=== PATIENT | female | born 1935 | race Caucasian/White ===

== ENCOUNTER 2017-02-15 11:38 | Inpatient (IN) | payer OTHER, MEDICARE ==
[2017-02-15] MEDS ORDERED: morphine CARPU-JECT 4 MG/1 ML DISP.SYRIN IVPUSH ONE ×4 (11:54→15:50)
--- NOTE | 2017-02-15 11:54 | PDOC ---
History of Present Illness - General History Source: Patient Exam Limitations: No Limitations - History of Present Illness Initial Comments: 02/15/17 12:17 The patient is an 82 year old female, with significant past medical history of a left shoulder surgery, hypertension, and hyperlipidemia, who presents today complaining of right shoulder pain and right collarbone pain s/p fall this morning. 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 She notes that there is mild pain in the left shoulder, which she had surgery on previously. Denies head trauma. Denies LOC. Denies right upper extremity numbness and tingling. Denies head, neck, back pain or trauma. Allergies: Sulfa Surgical Hx: left shoulder surgery, Right patella surgery PCP- Dr. Marcelle Mullen <Celina Ford - Last Filed: 02/15/17 18:30> - General History Source: Patient Exam Limitations: No Limitations <Ioana Zuluaga - Last Filed: 02/17/17 07:56> - General Chief Complaint: Pain, Acute Stated Complaint: SHOULDER PAIN Time Seen by Provider: 02/15/17 11:53 Past History <Celina Ford - Last Filed: 02/15/17 18:30> - Past Medical History Anemia: No Asthma: No Cancer: No HTN: Yes Hypercholesterolemia: Yes - Surgical History Abdominal Surgery: Yes (Hernia repair) Appendectomy: No Cardiac Surgery: No Orthopedic Surgery: Yes (Sheela Garcia) - Immunization History Immunization Up to Date: Yes - Psycho/Social/Smoking Cessation Hx Anxiety: No Suicidal Ideation: No Smoking Status: No Smoking History: Never smoked Have you smoked in the past 12 months: No Number of Cigarettes Smoked Daily: 0 Hx Alcohol Use: No Drug/Substance Use Hx: No Substance Use Type: None Hx Substance Use Treatment: No <Ioana Zuluaga - Last Filed: 02/17/17 07:56> - Past Medical History Allergies/Adverse Reactions: Allergies Allergy/AdvReac Type Severity Reaction Status Date / Time Sulfa (Sulfonamide Allergy Verified 10/17/15 05:53 Antibiotics) [Sulfa(Sulfonamide Antibiotics)] Home Medications: Ambulatory Orders Amlodipine Besylate [Norvasc -] 10 mg PO DAILY 04/18/14 Metoprolol Succinate [Toprol XL -] 25 mg PO BID 04/18/14 Losartan Potassium 100 mg PO DAILY 02/15/17 Red Yeast Rice 600 mg PO DAILY 02/15/17 Review of Systems - Review of Systems Able to Perform ROS?: Yes Comments:: 02/15/17 12:17 GENERAL/CONSTITUTIONAL: No: fever, chills, weakness, loss of appetite. HEAD, EYES, EARS, NOSE AND THROAT: No: change in vision, ear pain, discharge, sore throat, throat swelling. CARDIOVASCULAR: No: chest pain, lightheadedness, palpitations, syncope RESPIRATORY: No: cough, shortness of breath, wheezing, hemoptysis, stridor. GASTROINTESTINAL: No: nausea, vomiting, abdominal cramping, diarrhea, rectal bleeding, constipation. GENITOURINARY: No: dysuria, hematuria, frequency, urgency, flank pain. MUSCULOSKELETAL:+right shoulder pain, +right collarbone pain, +mild left shoulder pain. No: back pain, neck pain, joint pain, muscle swelling or pain SKIN: No: lesions, pallor, rash or easy bruising. NEUROLOGIC: No: headache, vertigo, paresthesias, weakness ENDOCRINE: No: unexplained weight gain or loss HEMATOLOGIC/LYMPHATIC: No: anemia, easy bleeding, swelling nodes <Celina Ford - Last Filed: 02/15/17 18:30> *Physical Exam - Vital Signs Last Vital Signs Temp Pulse Resp BP Pulse Ox 97.5 F L 57 L 18 154/67 100 02/15/17 11:42 02/15/17 11:42 02/15/17 11:42 02/15/17 11:42 02/15/17 11:42 - Physical Exam Comments: 02/15/17 12:17 GENERAL: The patient appears uncomfortable HEAD: Normal with no signs of trauma. EYES: PERRLA, EOMI, sclera anicteric, conjunctiva clear. ENT: Ears normal, nares patent, oropharynx clear without exudates. Moist mucous membranes. NECK: Normal range of motion, supple without lymphadenopathy, JVD, or masses. LUNGS: Breath sounds equal, clear to auscultation bilaterally. No wheezes, and no crackles. HEART:Regular rate and rhythm, normal S1 and S2 without murmur, rub or gallop. ABDOMEN: Soft, nontender, normoactive bowel sounds. No guarding, no rebound. EXTREMITIES: +Severe right shoulder pain. Right shoulder deformity. Sensation intact. Good pulse. Pulse is normal in the right hand. Right hand is warm. NEUROLOGICAL: Cranial nerves II through XII grossly intact. Normal speech. No focal neurological deficits. MUSCULOSKELETAL: Back nontender to palpation, no CVA tenderness SKIN: Warm, Dry, normal turgor, no rashes or lesions noted. <Celina Ford - Last Filed: 02/15/17 18:30> - Vital Signs Last Vital Signs Temp Pulse Resp BP Pulse Ox 97.5 F L 57 L 18 154/67 100 02/15/17 11:42 02/15/17 11:42 02/15/17 11:42 02/15/17 11:42 02/15/17 11:42 <Ioana Zuluaga - Last Filed: 02/17/17 07:56> Heart Score/ECG Review #1 ECG reviewed & interpreted by me at: 12:18 02/15/17 12:18 Twelve-lead EKG was performed and reviewed by me. There is normal sinus rhythm with a slightly bradycardiac rate of 57bpm. The axis is normal. LBBB. (old finding) <Ioana Zuluaga - Last Filed: 02/17/17 07:56> ED Treatment Course - LABORATORY CBC & Chemistry Diagram: 02/15/17 11:55 02/15/17 11:55 - RADIOLOGY Radiograph Interpretation: 02/15/17 12:46 EXAM#: TYPE/EXAM: RESULT: [id number] RAD/SHOULDER-RIGHT Status post fall. Single AP view of the right shoulder, right humerus. Anterior glenohumeral joint dislocation is seen. The humeral head is below the glenoid projecting over the lateral aspect of the scapula. Comminuted fracture is seen in the proximal humerus, with avulsed bony fragment. Avulsion fracture of the greater tuberosity is suggested. The right AC joint is not widened. No airspace opacities are seen in the visualized right lung. Reported By: Rick Tirado MD 02/15/17 6992 EXAM#: TYPE/EXAM: RESULT: [id number] RAD/SHOULDER-LEFT Status post fall. Left shoulder 2 views. Comminuted fracture is seen in the proximal left humerus. The humeral head maintains normal relationship to the glenoid. The left AC joint is not widened. Degenerative changes are seen in the region of the greater tuberosity. No airspace opacities are seen in the left lung. Prominent cardiac silhouette. Uncoiled thoracic aorta. No pneumothorax seen. Impression. Comminuted fracture proximal left humerus. Reported By: Rick Tirado MD 02/15/17 1231 EXAM#: TYPE/EXAM: RESULT: [id number] RAD/CHEST - PA Status post fall. Single semierect portable chest x-ray. No evidence of pneumonia or CHF atelectasis, or pneumothorax. No evidence of widening of the superior mediastinum. Mildly uncoiled thoracic aorta. The heart is not enlarged. Intact visualized ribs. Comminuted fracture - proximal right/left humerus. Right anterior glenohumeral joint dislocation. Impression. No evidence of active pulmonary disease. No pneumothorax or pleural effusion is seen. Intact visualized ribs. Reported By: Rick Tirado MD 02/15/17 1237 02/15/17 14:56 EXAM#: TYPE/EXAM: RESULT: [id number] CT/HEAD CT WITHOUT CONTRAST CT scan of the brain c-. Fall onto shoulder Findings. Serial axial images of the brain were obtained from foramen magnum to the cranial vertex without intravenous contrast. The study was supplemented with computer-generated coronal and sagittal reconstruction images. No evidence of acute subarachnoid hemorrhage, acute intra-axial or extra-axial fluid collection consistent with subdural or epidural hematoma. No mass effect, midline shift, acute territorial ischemic changes, herniation or edema is present. Normal [place] matter white matter differentiation. Cortical sulci sylvian fissures, perimesencephalic cisterns are not effaced. Intracranial vascular calcifications are noted. Right paranasal sinus disease Age-related involutional changes are observed. Examination of the bone windows show no fracture. Partially opacified right maxillary sinus: thickened mucosa, or retention cyst. Symmetrical ocular globes. Unremarkable retro-orbital soft tissues. Status post bilateral cataract surgeries. Impression. No evidence of acute intracranial hemorrhage, edema, midline shift, mass effect , or skull fracture. No CT evidence of acute territorial infarction. Reported By: Rick Tirado MD 02/15/17 1321 EXAM#: TYPE/EXAM: RESULT: [id number] CT/CERVICAL SPINE CT W/O CONTR Reason for the study. Trauma. CT scan of the cervical spine C-. Direct axial images were obtained from the base of the skull through T3. The study was supplemented with computer-generated sagittal, coronal reconstruction images. Findings. Normal cervical lordosis seen on the sagittal reconstruction images. Levoscoliosis of the cervical spine observed on coronal reconstruction images No acute fracture, compression deformity, of subluxation is seen. Normal relationship of odontoid to anterior arch of C1. The predental space is not widened. Intact odontoid. Normal articulation of atlantoaxial and occipito atlantal joints. Normal spinolaminar line. Normal alignment of the facet joints. C4-C5, C5-C6, C6-C7. Loss of disc space height. Degenerative endplate sclerosis. Posterior degenerative osteophytes. Facet joint arthropathy noted at several levels. No evidence of central spinal canal stenosis. The visualized portion of the posterior fossa, skull base, and uppermost of the thoracic spine show no abnormality. Normal height of vertebral bodies. The intraspinal contents cannot be adequately evaluated due to the beam hardening artifacts. The airways are patent. No evidence of prevertebral soft tissue swelling. No bulky neck adenopathy is seen. No dominant neck mass is seen. The lung apices are clear. Impression. No evidence of acute fracture, compression deformities, subluxation, prevertebral soft tissue swelling. Reported By: Rick Tirado MD 02/15/17 1322 - Medications Given in the ED: ED Medications Discontinued Medications Generic Name Dose Route Start Last Admin Trade Name Austinq PRN Reason Stop Dose Admin Morphine Sulfate 2 mg 02/15/17 11:54 02/15/17 12:03 Morphine Injection - IVPUSH 02/15/17 11:55 2 mg ONCE ONE Administration Morphine Sulfate 4 mg 02/15/17 12:01 02/15/17 12:04 Morphine Injection - IVPUSH 02/15/17 12:02 4 mg ONCE ONE Administration <Celina Ford - Last Filed: 02/15/17 18:30> - LABORATORY CBC & Chemistry Diagram: 02/15/17 11:55 02/15/17 11:55 - RADIOLOGY Radiology Studies Ordered: Category Date Time Status CHEST PA & LAT [RAD] Stat Radiology 02/15/17 11:44 Ordered HUMERUS-RIGHT [RAD] Stat Radiology 02/15/17 11:44 Ordered SHOULDER-RIGHT [RAD] Stat Radiology 02/15/17 11:44 Ordered <Ioana Zuluaga - Last Filed: 02/17/17 07:56> Medical Decision Making - Medical Decision Making 02/15/17 18:27 Dr. Morgan was paged at 12:44pm. Dr. Morgan was paged at 1:00pm. Dr. Morgan was paged at 2:35pm Dr. Morgan came into the ED at 4:00pm and attended to the patient. 02/15/17 18:30 Dr. Mullen was paged via paging service at 1:37pm. Dr. Mullen was called on her cell phone at 2:12pm and spoke to Dr. Zuluaga regarding the patient's care. <Celina Ford - Last Filed: 02/15/17 18:30> - Medical Decision Making 02/15/17 11:53 A portion of this note was documented by scribe services under my direction. I have reviewed the details of the note, within reason, and agree with the documentation with the following case summary and management plan written by me. Nursing documentation reviewed and incorporated into medical decision making 82yo Relatively healthy F presenting to the ER with a complaint of bilateral shoulder pain, R>L Pt was at home, tripped over the super's legs and landed onto her shoulder No LOC No amnesia No signs of head trauma 02/15/17 12:03 Pt in severe pain Given Morphine 2mg IV Pt continue to cry in pain We are unable to move her in any way She needs x rays Will give Morphine 2mg IV additional 02/15/17 12:10 Right shoulder dislocation, AC separation, humeral fracture 02/15/17 13:04 Laboratory Tests 02/15/17 02/15/17 02/15/17 11:55 11:55 11:55 WBC 10.4 H D Hgb 11.9 Hct 35.8 Plt Count 287 D INR 0.96 BUN 19 H Creatinine 0.7 Right shoulder dislocated Left shoulder comminuted fracture Calls placed to pt Orthopedist Pending response 02/15/17 13:05 02/15/17 13:[address]: negative for ICH Cervical spine CT: degenerative changes 02/15/17 14:[address] Mullen. Will admit to her service. Will continue to try to reach Orthopedic consult Right shoulder reduced by Orthopedics <Ioana Zuluaga - Last Filed: 02/17/17 07:56> *DC/Admit/Observation/Transfer - Attestations Scribe Attestion: 02/15/17 12:18 Documentation prepared by CELESTINE Damon, acting as medical equipment sales for Ioana Zuluaga MD. <Celina Ford - Last Filed: 02/15/17 18:30> - Discharge Dispostion Admit: Yes <Ioana Zuluaga - Last Filed: 02/17/17 07:56> Diagnosis at time of Disposition: Anterior shoulder dislocation Qualifiers: Encounter type: initial encounter Laterality: right Qualified Code(s): S43.014A - Anterior dislocation of right humerus, initial encounter Humeral head fracture Qualifiers: Encounter type: initial encounter Fracture type: closed Laterality: unspecified laterality Qualified Code(s): S42.293A - Other displaced fracture of upper end of unspecified humerus, initial encounter for closed fracture - Discharge Dispostion Condition at time of disposition: Stable
[2017-02-15] MEDS ORDERED: morphine CARPU-JECT 2 MG/1 ML DISP.SYRIN ONE ×5 (11:56→15:49)
[2017-02-15 12:01] LABS: EOSINOPHIL 2.3 % (0-4.5); MCH 30.5 pg (25.7-33.7); MCHC 33.2 g/dl (32.0-36.0); MEAN CELL VOLUME 91.9 fl (80-96); MEAN PLT VOLUME 8.2 fl (7.5-11.1); NEUTROPHILS 46.5 % (42.8-82.8); PLATELET COUNT 287 K/MM3 (134-434); RDW 13.2 % (11.6-15.6); WHITE BLOOD COUNT 10.4 K/mm3 (4.0-10.0)
[2017-02-15] MEDS ORDERED: ONDANSETRON 4 MG/2 ML VIAL ONE (12:08)
[2017-02-15 12:21] LABS: INR 0.96 (0.82-1.09); PROTHROMBIN TIME (PATIENT) 10.5 SEC (9.98-11.88)
[2017-02-15 12:25] LABS: ALBUMIN 3.2 g/dl (3.4-5.0); ALK PHOS 81 U/L (45-117); ANION GAP 8 (8-16); BILIRUBIN,TOTAL 0.2 mg/dL (0.2-1.0); CALCIUM 9.1 mg/dL (8.5-10.1); CO2 28 mmol/L (21-32); COCKROFT - GAULT 49.5635; CREATININE 0.7 mg/dL (0.55-1.02); GLUCOSE,RANDOM 124 mg/dL (74-106); SGPT/ALT 28 U/L (12-78); TOT PROT 6.2 g/dl (6.4-8.2)
[2017-02-15 12:40] LABS: SGOT/AST 18 U/L (15-37)
[2017-02-15] MEDS ORDERED: ONDANSETRON 4 MG/2 ML VIAL IVPUSH ONE (16:30)
[2017-02-15] MEDS ORDERED: LIDOCAINE HCL 2% (20ML MULTI-DOSE VIAL) NR ONE (16:41)
[2017-02-15] MEDS ORDERED: PROPOFOL 20 ML ONE ×2 (16:50)
[2017-02-15] MEDS ORDERED: SUCCINYLCHOLINE CHLORIDE 200 MG/10 ML VIAL ONE (16:50)
--- NOTE | 2017-02-15 16:52 | PN ---
Progress Note (short form) - Note Progress Note: Pt seen and examined in the ED. She is an 82 year old female patient who fell 5 hours ago, injuring both shoulders. X-rays in the ED confirm she has a comminuted fracture of the left proximal humerus, and a comminuted fracture of the right proximal humerus as well as an anterior right shoulder dislocation. PE Both UE are NVI. No sensation No functional deficits. Right GH joint clearly dislocated Imp As above. Rec 10cc 2% Lidocaine injected into right GH joint. Closed reduction performed at bedside. Post reduction xrays confirm reduction. Sling for both arms, perhaps with 6" bob bandage wrapped around both arms. No surgery planned at this time
[2017-02-15] MEDS ORDERED: OXYCODONE/APAP 5/325MG COMBO TABLET PO PRN (19:10)
[2017-02-15] MEDS ORDERED: oxyCODONE HCL 5 MG TABLET PO PRN (19:11)
--- NOTE | 2017-02-15 19:15 | HP ---
Admitting History and Physical - Admission Chief Complaint: fall at home and trauma to both shoulders History of Present Illness: 10 upper sorbian female s/p accidental mechanical fall at home (tripping over the foot of a person), injured her bothe upper extremities with pain and inability to move arms Limitations to Obtaining History: No Limitations - Past Medical History Cardiovascular: Yes: CAD, HTN - Smoking History Smoking history: Never smoked Have you smoked in the past 12 months: No Aproximately how many cigarettes per day: 0 - Alcohol/Substance Use Hx Alcohol Use: No Home Medications - Allergies Allergies/Adverse Reactions: Allergies Allergy/AdvReac Type Severity Reaction Status Date / Time Sulfa (Sulfonamide Allergy Verified 10/17/15 05:53 Antibiotics) [Sulfa(Sulfonamide Antibiotics)] - Home Medications Home Medications: Ambulatory Orders Amlodipine Besylate [Norvasc -] 10 mg PO DAILY 04/18/14 Metoprolol Succinate [Toprol XL -] 25 mg PO BID 04/18/14 Losartan Potassium 100 mg PO DAILY 02/15/17 Red Yeast Rice 600 mg PO DAILY 02/15/17 Review of Systems - Review of Systems Constitutional: reports: No Symptoms Eyes: reports: Other (had recent right eye cataract surgery) Neck: reports: No Symptoms Cardiovascular: reports: No Symptoms Respiratory: reports: No Symptoms Gastrointestinal: reports: No Symptoms Genitourinary: reports: No Symptoms Breasts: reports: No Symptoms Reported Musculoskeletal: reports: Other (pin in the right shoulder, edeam of the left upper humerus) Physical Examination Vital Signs: Vital Signs Temperature 97.5 F L 02/15/17 11:42 Pulse Rate 61 02/15/17 17:02 Respiratory Rate 18 02/15/17 17:02 Blood Pressure 147/61 02/15/17 17:02 O2 Sat by Pulse Oximetry (%) 98 02/15/17 13:40 Constitutional: Yes: Well Nourished, Calm Eyes: Yes: Conjunctiva Clear, EOM Intact HENT: Yes: Atraumatic, Normocephalic Neck: Yes: Supple, Trachea Midline Cardiovascular: Yes: Regular Rate and Rhythm, S1, S2 Respiratory: Yes: Regular Gastrointestinal: Yes: Normal Bowel Sounds, Soft, Abdomen, Obese. No: Hepatomegaly, Splenomegaly ...Rectal Exam: Yes: Deferred Breast(s): Yes: WNL Extremities: No: Calf Tenderness Edema: No Peripheral Pulses WNL: Yes Problem List - Problems (1) Anterior shoulder dislocation Assessment/Plan: of right shoulder dislocation was reduced in ER under sedation Code(s): S43.016A - ANTERIOR DISLOCATION OF UNSPECIFIED HUMERUS, INIT ENCNTR Qualifiers: Encounter type: initial encounter Laterality: right Qualified Code( s): S43.014A - Anterior dislocation of right humerus, initial encounter (2) Humeral head fracture Assessment/Plan: comminuted fracture pain management with Percocet and ice sling at all times Code(s): S42.293A - OTH DISP FX OF UPPER END OF UNSP HUMERUS, INIT FOR CLOS FX Qualifiers: Encounter type: initial encounter Fracture type: closed Laterality : unspecified laterality Qualified Code(s): S42.293A - Other displaced fracture of upper end of unspecified humerus, initial encounter for closed fracture (3) HTN (hypertension) Assessment/Plan: continue Toprol Code(s): I10 - ESSENTIAL (PRIMARY) HYPERTENSION (4) Status post laser cataract surgery of right eye Code(s): Z98.41 - CATARACT EXTRACTION STATUS, RIGHT EYE (5) Status post cataract extraction and insertion of intraocular lens of right eye Assessment/Plan: continue steroid eye drops as directed Code(s): Z98.41 - CATARACT EXTRACTION STATUS, RIGHT EYE Z96.1 - PRESENCE OF INTRAOCULAR LENS
[2017-02-15 22:30] VITALS: BMI 17.3
[2017-02-15] MEDS: ACETAMINOPHEN 325 MG TABLET (FP) PO PRN (23:48)
[2017-02-15] MEDS: METOPROLOL SUCCINATE 25 MG TAB.SR.24H (FP) PO SCH (23:49)
[2017-02-16] MEDS: amLODIPine BESYLATE 10 MG TABLET (FP) PO SCH (09:33)
[2017-02-16] MEDS: METOPROLOL SUCCINATE 25 MG TAB.SR.24H (FP) PO SCH ×2 (09:34→21:38)
[2017-02-16] MEDS: CYANOCOBALAMIN 1,000 MCG TABLET (FP) PO SCH (09:34)
[2017-02-16] MEDS: LOSARTAN POTASSIUM 50 MG TABLET (FP) PO SCH (09:34)
[2017-02-16] MEDS ORDERED: METOPROLOL SUCCINATE 25 MG TAB.SR.24H (FP) PO SCH ×2 (10:00)
--- NOTE | 2017-02-16 12:34 | EKG ---
Test Reason : Blood Pressure : / mmHG Vent. Rate : 057 BPM Atrial Rate : 057 BPM P-R Int : 128 ms QRS Dur : 142 ms QT Int : 474 ms P-R-T Axes : 064 -01 064 degrees QTc Int : 461 ms SINUS BRADYCARDIA LEFT BUNDLE BRANCH BLOCK ABNORMAL ECG WHEN COMPARED WITH ECG OF 17-OCT-2015 16:40, NO SIGNIFICANT CHANGE WAS FOUND Confirmed by MAXINE LANTIGUA MD ([id number]) on 02/16/2017 12:33:30 PM Referred By: Confirmed By:MAXINE LANTIGUA MD
--- NOTE | 2017-02-16 13:06 | PN ---
Progress Note (short form) - Note Progress Note: Ortho Pt seen and examined right shoulder fx/dislocation, left proximal humerus fx sling in place, good rom of elbow, wrist and hand nvi a/p continue immobilization PT eval pain control d/c planning d/w DR. Gonzales
[2017-02-16] MEDS ORDERED: ALPRAZolam 0.25 MG TABLET PO PRN (13:59)
--- NOTE | 2017-02-16 14:00 | PN ---
Progress Note, Physician Chief Complaint: pain in the left shoudler and right shoulder History of Present Illness: Patient admitted with disclocation of zelalem right shoudler and fracture of the left humeral =head.. Cominies to have pain. - Current Medication List Current Medications: Active Medications Acetaminophen (Tylenol -) 325 mg PO Q4H PRN PRN Reason: PAIN LEVEL 6-10 Stop: 02/18/17 19:10 Last Admin: 02/15/17 23:48 Dose: 325 mg Alprazolam (Xanax -) 0.25 mg PO Q8H PRN PRN Reason: ANXIETY Amlodipine Besylate (Norvasc -) 10 mg PO DAILY [facility] Last Admin: 02/16/17 09:33 Dose: 10 mg Cyanocobalamin (Vitamin B12 -) 1,000 mcg PO DAILY [facility] Last Admin: 02/16/17 09:34 Dose: 1,000 mcg Losartan Potassium (Cozaar -) 100 mg PO DAILY [facility] Last Admin: 02/16/17 09:34 Dose: 100 mg Metoprolol Succinate (Toprol Xl -) 25 mg PO BID [facility] Last Admin: 02/16/17 09:34 Dose: 25 mg Pt's Own Med (Non- Form) Durezol 0.05% Oph 1 each OD DAILY [facility] Oxycodone HCl (Roxicodone -) 5 mg PO Q4H PRN PRN Reason: PAIN LEVEL 6-10 Last Admin: 02/15/17 23:47 Dose: 5 mg - Objective Vital Signs: Vital Signs Temperature 98.4 F 02/16/17 08:05 Pulse Rate 65 02/16/17 08:05 Respiratory Rate 18 02/16/17 08:05 Blood Pressure 170/73 02/16/17 08:05 O2 Sat by Pulse Oximetry (%) 96 02/16/17 09:00 Constitutional: Yes: Anxious, Mild Distress, Thin Eyes: Yes: Conjunctiva Clear, EOM Intact HENT: Yes: Atraumatic, Normocephalic Neck: Yes: Supple, Trachea Midline Cardiovascular: Yes: Pulse Irregular Gastrointestinal: Yes: Normal Bowel Sounds Labs: INR, PTT INR 0.96 (0.82-1.09) 02/15/17 11:55 Problem List - Problems (1) Anterior shoulder dislocation Assessment/Plan: of right shoulder dislocation was reduced in ER under sedation Code(s): S43.016A - ANTERIOR DISLOCATION OF UNSPECIFIED HUMERUS, INIT ENCNTR Qualifiers: Encounter type: initial encounter Laterality: right Qualified Code( s): S43.014A - Anterior dislocation of right humerus, initial encounter (2) Humeral head fracture Assessment/Plan: comminuted fracture pain management with Percocet and ice sling at all times Code(s): S42.293A - OTH DISP FX OF UPPER END OF UNSP HUMERUS, INIT FOR CLOS FX Qualifiers: Encounter type: initial encounter Fracture type: closed Laterality : unspecified laterality Qualified Code(s): S42.293A - Other displaced fracture of upper end of unspecified humerus, initial encounter for closed fracture (3) HTN (hypertension) Assessment/Plan: continue Toprol Code(s): I10 - ESSENTIAL (PRIMARY) HYPERTENSION (4) Status post laser cataract surgery of right eye Code(s): Z98.41 - CATARACT EXTRACTION STATUS, RIGHT EYE (5) Status post cataract extraction and insertion of intraocular lens of right eye Code(s): Z98.41 - CATARACT EXTRACTION STATUS, RIGHT EYE Z96.1 - PRESENCE OF INTRAOCULAR LENS
[2017-02-16] MEDS: [UNRECOGNIZED DRUG - REMARK] OD SCH (15:20)
[2017-02-16] MEDS: ACETAMINOPHEN 325 MG TABLET (FP) PO PRN (22:39)
[2017-02-17] MEDS: CYANOCOBALAMIN 1,000 MCG TABLET (FP) PO SCH (10:37)
[2017-02-17] MEDS: amLODIPine BESYLATE 10 MG TABLET (FP) PO SCH (10:37)
[2017-02-17] MEDS: METOPROLOL SUCCINATE 25 MG TAB.SR.24H (FP) PO SCH ×2 (10:37→21:35)
[2017-02-17] MEDS: LOSARTAN POTASSIUM 50 MG TABLET (FP) PO SCH (10:38)
[2017-02-17] MEDS: [UNRECOGNIZED DRUG - REMARK] OD SCH (10:38)
--- NOTE | 2017-02-17 10:58 | PN ---
Progress Note (short form) - Note Progress Note: Pt seen and examined. Doing fine. Appears very comfortable. In B/L shoulder slings B/L UE NVI. Good ROM and function of both elbows, wrists, fingers Imp Overall doing fine. Rec Can DC from an orthopedic pov F/U as an out pt in 1 week
--- NOTE | 2017-02-17 20:46 | PN ---
Progress Note, Physician Chief Complaint: pain in the left shoudler and right shoulder History of Present Illness: 10- yo female Patient admitted with dislocation of the right shoulder and fracture of the left humeral head.. The patient is wearing bilateral slings, and has less pain. - Current Medication List Current Medications: Active Medications Acetaminophen (Tylenol -) 325 mg PO Q4H PRN PRN Reason: PAIN LEVEL 6-10 Stop: 02/18/17 19:10 Last Admin: 02/16/17 22:39 Dose: 325 mg Alprazolam (Xanax -) 0.25 mg PO Q8H PRN PRN Reason: ANXIETY Last Admin: 02/16/17 21:40 Dose: 0.25 mg Amlodipine Besylate (Norvasc -) 10 mg PO DAILY [facility] Last Admin: 02/17/17 10:37 Dose: 10 mg Cyanocobalamin (Vitamin B12 -) 1,000 mcg PO DAILY [facility] Last Admin: 02/17/17 10:37 Dose: 1,000 mcg Losartan Potassium (Cozaar -) 100 mg PO DAILY [facility] Last Admin: 02/17/17 10:38 Dose: 100 mg Metoprolol Succinate (Toprol Xl -) 25 mg PO BID [facility] Last Admin: 02/17/17 10:37 Dose: 25 mg Pt's Own Med (Non- Form) Durezol 0.05% Oph 1 each OD DAILY [facility] Last Admin: 02/17/17 10:38 Dose: 1 each Oxycodone HCl (Roxicodone -) 5 mg PO Q4H PRN PRN Reason: PAIN LEVEL 6-10 Last Admin: 02/15/17 23:47 Dose: 5 mg - Objective Vital Signs: Vital Signs Temperature 97.9 F 02/17/17 14:08 Pulse Rate 72 02/17/17 14:08 Respiratory Rate 20 02/17/17 09:00 Blood Pressure 148/81 02/17/17 14:08 O2 Sat by Pulse Oximetry (%) 96 02/17/17 09:00 Constitutional: Yes: No Distress, Calm Eyes: Yes: Conjunctiva Clear, EOM Intact HENT: Yes: Atraumatic, Normocephalic Neck: Yes: Supple, Trachea Midline Cardiovascular: Yes: Regular Rate and Rhythm, S1, S2 Respiratory: Yes: Regular, CTA Bilaterally Gastrointestinal: Yes: Normal Bowel Sounds, Soft ...Rectal Exam: Yes: Deferred Genitourinary: Yes: WNL Breast(s): Yes: WNL Extremities: Yes: WNL, Other (pain in bothe arms associated with movement, good capillary refill). No: Calf Tenderness Edema: No Peripheral Pulses WNL: Yes Peripheral Pulses: Left Radial: 1+, Right Radial: 1+ Neurological: Yes: Alert, Oriented Psychiatric: Yes: Alert, Oriented Labs: INR, PTT INR 0.96 (0.82-1.09) 02/15/17 11:55 Problem List - Problems (1) Anterior shoulder dislocation Assessment/Plan: of right shoulder dislocation was reduced in ER under sedation Code(s): S43.016A - ANTERIOR DISLOCATION OF UNSPECIFIED HUMERUS, INIT ENCNTR Qualifiers: Encounter type: initial encounter Laterality: right Qualified Code( s): S43.014A - Anterior dislocation of right humerus, initial encounter (2) Humeral head fracture Assessment/Plan: comminuted fracture pain management with Percocet and ice sling at all times Code(s): S42.293A - OTH DISP FX OF UPPER END OF UNSP HUMERUS, INIT FOR CLOS FX Qualifiers: Encounter type: initial encounter Fracture type: closed Laterality : unspecified laterality Qualified Code(s): S42.293A - Other displaced fracture of upper end of unspecified humerus, initial encounter for closed fracture (3) HTN (hypertension) Assessment/Plan: continue Toprol Code(s): I10 - ESSENTIAL (PRIMARY) HYPERTENSION (4) Status post laser cataract surgery of right eye Assessment/Plan: continue steroid ophthalmic drops Code(s): Z98.41 - CATARACT EXTRACTION STATUS, RIGHT EYE
[2017-02-18] MEDS: LOSARTAN POTASSIUM 50 MG TABLET (FP) PO SCH (10:57)
[2017-02-18] MEDS: CYANOCOBALAMIN 1,000 MCG TABLET (FP) PO SCH (10:57)
[2017-02-18] MEDS: [UNRECOGNIZED DRUG - REMARK] OD SCH (10:57)
[2017-02-18] MEDS: METOPROLOL SUCCINATE 25 MG TAB.SR.24H (FP) PO SCH (10:57)
[2017-02-18] MEDS: amLODIPine BESYLATE 10 MG TABLET (FP) PO SCH (10:57)
--- NOTE | 2017-02-18 12:23 | DS ---
Physical Examination Vital Signs: Vital Signs Temperature 98.4 F 02/18/17 05:58 Pulse Rate 74 02/18/17 05:58 Respiratory Rate 20 02/18/17 05:58 Blood Pressure 148/68 02/18/17 05:58 O2 Sat by Pulse Oximetry (%) 97 02/17/17 20:51 Constitutional: Yes: No Distress, Calm Eyes: Yes: Conjunctiva Clear, EOM Intact HENT: Yes: Atraumatic, Normocephalic Neck: Yes: Supple, Trachea Midline Cardiovascular: Yes: Regular Rate and Rhythm, S1, S2 Respiratory: Yes: Regular, CTA Bilaterally Gastrointestinal: Yes: Normal Bowel Sounds, Soft. No: Abdomen, Obese, Hepatomegaly, Splenomegaly ...Rectal Exam: Yes: Deferred Breast(s): Yes: WNL Musculoskeletal: Yes: Other (pain in both shoulders) Extremities: No: Calf Tenderness Edema: No Peripheral Pulses WNL: Yes Integumentary: Yes: WNL Neurological: Yes: Alert, Oriented ...Motor Strength: LUE (pain in the left shouder), RUE (painin the right shoulder) Psychiatric: Yes: Alert, Oriented Discharge Summary Reason For Visit: ANTERIOR SHOULDER DISLOCATION,FX OF HEAD HUMERUS Current Active Problems Anterior shoulder dislocation (Acute) Humeral head fracture (Acute) Status post laser cataract surgery of right eye (Acute) Hospital Course: [place] with PMH of HTN anxiety and B 12 deficit, fell anbd fractured her left humerus and sustained right shoulder dislocation which was reduced in the ER.There was no interventional recommendation for the left shoulder humeral head impacted fracture. The patient will be discharged to rehabilitation Condition: Stable - Instructions Referrals: Marcelle Mullen MD [Primary Care Provider] - - Home Medications Comprehensive Discharge Medication List: Ambulatory Orders Amlodipine Besylate [Norvasc -] 10 mg PO DAILY 04/18/14 Metoprolol Succinate [Toprol XL -] 25 mg PO BID 04/18/14 Losartan Potassium 100 mg PO DAILY 02/15/17 Red Yeast Rice 600 mg PO DAILY 02/15/17
[2017-02-18 14:12] VITALS: BP 149/78; PULSE 77; TEMP 97.7
[2017-02-18] MEDS ORDERED: PT OWN MED DRAWER 7, Y5N ONE (14:56)
== END 2017-02-18 17:17 | DRG 563 ==
LOC: JER 11:38 → JERBED 14:19 → J6S 18:01
PROVIDERS: ADMIT Internal Medicine; ATTEND Internal Medicine
PROC: 0PSCXZZ Reposition Right Humeral Head, External Approach (ICD-10-PCS; principal; 2017-02-15)
DX: S43.014A Anterior dislocation of right humerus, initial encounter (principal); S42.292A Other displaced fracture of upper end of left humerus, initial encounter for closed fracture; S42.291A Other displaced fracture of upper end of right humerus, initial encounter for closed fracture; I25.10 Atherosclerotic heart disease of native coronary artery without angina pectoris; I10 Essential (primary) hypertension; E53.8 Deficiency of other specified B group vitamins; E78.5 Hyperlipidemia, unspecified; W01.0XXA Fall on same level from slipping, tripping and stumbling without subsequent striking against object, initial encounter; Y93.89 Activity, other specified; Y92.090 Kitchen in other non-institutional residence as the place of occurrence of the external cause; Z98.41 Cataract extraction status, right eye
CPT/HCPCS: 36415; 70450-TC; 71010-TC; 72125-TC; 73030-TC-LT; 73030-TC-RT; 73060-TC-RT; 80053; 85025; 85610; 93005; 93010; 97116-GP; 97161-GP; 99283-25

== ENCOUNTER 2017-03-09 07:45 | Day surgery (SDC) | payer OTHER, MEDICARE ==
[~2017-03-09 07:45] MED LIST: BUPIVACAINE HCL/PF 0.5% (5MG/ML) 10 ML VIAL IJ ONE; LIDOCAINE HCL 1%, 10 MG/ML (50 mL VIAL) IJ ONE; ceFAZolin SODIUM 1 GM VIAL IVPB ONE
[2017-03-09 08:20] LABS: BASOPHIL 0.5 % (0-2.0); EOSINOPHIL 2.1 % (0-4.5); MCH 30.7 pg (25.7-33.7); MCHC 33.8 g/dl (32.0-36.0); MEAN PLT VOLUME 7.3 fl (7.5-11.1); NEUTROPHILS 56.2 % (42.8-82.8); PLATELET COUNT 399 K/MM3 (134-434); WHITE BLOOD COUNT 7.2 K/mm3 (4.0-10.0)
[2017-03-09 08:21] LABS: URINE APPEARANCE CLEAR; URINE BILIRUBIN NEGATIVE (NEGATIVE); URINE COLOR LTYELLOW; URINE GLUCOSE (UA) NEGATIVE (NEGATIVE); URINE KETONE NEGATIVE (NEGATIVE); URINE LEUK ESTERASE NEGATIVE (NEGATIVE); URINE NITRITE NEGATIVE (NEGATIVE); URINE PROTEIN NEGATIVE (NEGATIVE); URINE UROBILINOGEN NEGATIVE E.U./dl (0.2-1.0)
[2017-03-09 08:30] LABS: URINE BLOOD 2+ (NEGATIVE)
[2017-03-09 08:38] LABS: URINE MUCUS RARE; URINE RBC 8 /hpf (0-3); URINE WBC 2 /hpf (3-5)
[2017-03-09 08:42] LABS: ACTIVATED PTT 26.7 SECONDS (26.9-34.4)
[2017-03-09 08:50] LABS: ALK PHOS 124 U/L (45-117); ANION GAP 7 (8-16); BILIRUBIN,TOTAL 0.4 mg/dL (0.2-1.0); CALCIUM 9.2 mg/dL (8.5-10.1); CO2 28 mmol/L (21-32); CREATININE 0.7 mg/dL (0.55-1.02); GLUCOSE,RANDOM 101 mg/dL (74-106); SGOT/AST 17 U/L (15-37); SGPT/ALT 38 U/L (12-78); TOT PROT 6.1 g/dl (6.4-8.2)
--- NOTE | 2017-03-09 10:17 | HP ---
Satellite H - Chief Complaint Chief Complaint: right shoulder fracture of greater tuberosity, previous dislocation History of Present Illness: s/p fall, right shoulder dislocation, reduction in ER History Source: Patient Limitations to Obtaining History: No Limitations - Past Medical History Allergies/Adverse Reactions: Allergies Allergy/AdvReac Type Severity Reaction Status Date / Time Sulfa (Sulfonamide Allergy Verified 03/08/17 18:17 Antibiotics) [Sulfa(Sulfonamide Antibiotics)] Cardiovascular: Yes: CAD, HTN - Current Medications Current Medications: Home Medications Medication Instructions Recorded Amlodipine Besylate [Norvasc -] 10 mg PO DAILY 04/18/14 Metoprolol Succinate [Toprol XL -] 50 mg PO DAILY 04/18/14 Losartan Potassium 100 mg PO DAILY 02/15/17 Acetaminophen [Tylenol .Regular 325 mg PO Q4H PRN #0 tablet 02/18/17 Strength -] Alprazolam [Xanax] 0.25 mg PO Q8H PRN #0 tablet MDD 02/18/17 0.75 mg Cyanocobalamin [Vitamin B12 -] 1,000 mcg PO DAILY tablet 02/18/17 Acetaminophen [Tylenol -] 500 mg PO Q8H PRN 03/08/17 Oxycodone HCl/Acetaminophen 1 tab PO Q4H PRN 03/08/17 [Percocet 5-325 mg Tablet] Satellite Physical Exam - Physical Examination Vital Signs: Vital Signs Period Temp Pulse Resp BP Sys/Castillo Pulse Ox Last 24 Hr 98.4 F 74 16 152/95 98 General Appearance: Well Nourished ENT: Clear Lung: Clear to auscultation Heart: Regular rate & rhythm Breasts: Soft Abdomen: Soft Extremities: No edema Satellite Impression/Plan - Impression/Plan Impression: right shoulder/humerus displaced greater tuberosity fracture Operative Procedure: ORIF right humerus greater tuberosity Date to be Performed: 03/09/17
[2017-03-09] MEDS ORDERED: LIDOCAINE HCL 1%, 10 MG/ML (20ML VIAL) ONE (10:31)
[2017-03-09] MEDS ORDERED: BUPIVACAINE HCL/PF 0.5% (5MG/ML) 10 ML VIAL ONE (10:31)
[2017-03-09] MEDS ORDERED: ROPIVACAINE HCL 0.5% 30ML VIAL ONE (10:52)
[2017-03-09] MEDS ORDERED: MIDAZOLAM HCL 2 MG/2 ML SINGLE DOSE VIAL ONE (10:54)
[2017-03-09] MEDS ORDERED: PROPOFOL 20 ML ONE (11:14)
[2017-03-09] MEDS ORDERED: ceFAZolin SODIUM 1 GM VIAL ONE (11:16)
[2017-03-09] MEDS ORDERED: ceFAZolin SODIUM 1 GM VIAL IVPB ONE (11:20)
[2017-03-09] MEDS ORDERED: oxyCODONE HCL 5 MG TABLET PO PRN (11:47)
[2017-03-09] MEDS ORDERED: ONDANSETRON 4 MG/2 ML VIAL IVPUSH PRN (11:47)
[2017-03-09] MEDS ORDERED: LACTATED RINGERS SOLUTION 1,000 ML IV SCH (12:00)
[2017-03-09] MEDS ORDERED: ePHEDrine SULFATE 50 MG/1 ML AMPULE ONE (12:11)
--- NOTE | 2017-03-09 12:38 | OP ---
Operative Note - Note: Operative Date: 03/09/17 ([facility]) Pre-Operative Diagnosis: right shoulder greater tuberosity fx Operation: right shoulder ORIF, RCR Post-Operative Diagnosis: Same as Pre-op Surgeon: Isidoro Morgan Getterer: Jason Gonzales Anesthesia: General, Local Estimated Blood Loss (mls): 50 Operative Report Dictated: Yes
--- NOTE | 2017-03-09 15:05 | OP ---
DATE OF OPERATION: 03/09/2017 PREOPERATIVE DIAGNOSIS: Right shoulder dislocation and greater tuberosity fracture/proximal humerus. POSTOPERATIVE DIAGNOSIS: Right shoulder dislocation and greater tuberosity fracture/proximal humerus and rotator cuff tear. SURGEON: Tony Llamas MD MANAGER MEDICAL WRITING: Jason Gonzales MD ANESTHESIOLOGIST: Joe Hartley MD; right interscalene block. ANESTHESIA: Right interscalene block; general endotracheal anesthesia. DRAINS: None. COMPLICATIONS: None. PROCEDURE: 1. Right shoulder greater tuberosity/proximal humerus open reduction and internal fixation. 2. Open rotator cuff repair. BLOOD LOSS: Minimal. BLOOD GIVEN: None. FLUID REPLACEMENT: 1000 mL. SPECIMENS: None. INDICATIONS FOR THE PROCEDURE: This patient is an 82-year-old female who sustained a bilateral proximal humerus fracture and right shoulder dislocation 3 weeks ago. She had a closed reduction of the right glenohumeral joint in the emergency room. Upon followup in the office her left proximal humerus fracture though highly comminuted is in an acceptable position. Her right shoulder has very displaced greater tuberosity fracture. It was well reduced. After understanding the potential risks, complications, alternatives, and benefits of surgery verus nonsurgical treatment, the patient elected to undergo this procedure. The patient understands that it is possible that function of both shoulders could be poor. DESCRIPTION OF PROCEDURE: The patient was brought to the operating room. Peripheral IV was placed. Intravenous sedation was given. One gram of intravenous Ancef was given. General endotracheal anesthesia was induced as well as a right interscalene block. She was placed in the beach chair position with ample padding throughout. The right upper extremity was prepped and draped in a sterile fashion. The bony landmarks were marked out with a marking pen. A lateral open rotator cuff repair incision was made. Subcutaneous hemostasis was achieved with a Bovie cautery. Dissection was done longitudinally through the fascia of the deltoid. I then dissected through the deltoid. A Weitlaner retractor was placed deeper into the wound. I excised the subdeltoid bursa. I did periosteal dissection anteriorly and posteriorly and exposed the greater tuberosity fracture site. I then mobilized the greater tuberosity fracture and the complete rotator cuff tear with the periosteal elevator. Using Kochers I was able to bring it down to its landing bed. X-rays were taken. I mobilized it more. Excised more bursa and assessed the situation. The greater tuberosity fracture fragment was quite small, comminuted, and would not hold screws. Therefore, I put in 6 FiberWires; 3 through the anterior portion of the rotator cuff tear; then 1 anterior to the greater tuberosity fracture fragment; 1 posterior to it, and 1 right through it. Through this I was able to pull hard and it held and came down quite nicely. X-rays were taken. Next, we attempted to put the 6 posterior tails through a swivel lock anchor, but it did not hold in the bone. It was quite osteoporotic and even the humeral cortex. Therefore, we had to change our plan intraoperatively and we put in an anterior 34-mm bicortical screw with a washer and used it as a post and tied the posterior 6 tails over this anterior screw. It came down quite nicely. We cinched the guidance and control system engineer over the FiberWire knot. Next, we did the same thing in a cross-over technique using the 6 anterior tails crossing over the posterior tails, put a 34-mm bicortical 4.0-mm screw with the washer, and tied these FiberWires under and over the screw. We cinched the guidance and control system engineer on top of it holding it in place with a washer. Overall it came together quite nicely. Somewhat of a tenuous repair although the screw fixation was quite good. She was quite osteoporotic and her bone was not of good quality. The area was irrigated and washed out. The deltoid fascia was closed with 2-0 Vicryl sutures and 2-0 Vicryl was used to close the deep dermal layer. Final skin reapproximation was done with the running subcuticular 3-0 V-lock suture. The area was then washed and dried, covered with an Aquacel dressing. The incision was about 4-1/2 inches long. She was put into a shoulder immobilizer and the left upper extremity in a sling. Total operative time was about an hour and 15 minutes. There were no complications during the case. The patient tolerated the procedure quite well and was brought to the ambulatory recovery room in stable condition. TONY LLAMAS M.D. [id number]
[2017-03-09 18:11] VITALS: TEMP 97.8
[2017-03-09 18:24] VITALS: BP 146/66; PULSE 79
--- NOTE | 2017-03-10 11:19 | EKG ---
Test Reason : Blood Pressure : / mmHG Vent. Rate : 072 BPM Atrial Rate : 072 BPM P-R Int : 132 ms QRS Dur : 124 ms QT Int : 408 ms P-R-T Axes : 073 008 079 degrees QTc Int : 446 ms NORMAL SINUS RHYTHM LEFT BUNDLE BRANCH BLOCK ABNORMAL ECG WHEN COMPARED WITH ECG OF 15-FEB-2017 12:09, NO SIGNIFICANT CHANGE WAS FOUND Confirmed by DONNA BETTENCOURT MD ([id number]) on 03/10/2017 11:18:59 AM Referred By: Isidoro Morgan Confirmed By:DONNA BETTENCOURT MD
== END 2017-03-09 16:45 | disposition home or self-care (01) ==
LOC: JASU-SURG 07:45
PROVIDERS: ATTEND Orthopaedic Surgery
PROC: 0LQ10ZZ Repair Right Shoulder Tendon, Open Approach (ICD-10-PCS; 2017-03-09)
PROC: 0PSC04Z Reposition Right Humeral Head with Internal Fixation Device, Open Approach (ICD-10-PCS; principal; 2017-03-09 10:00)
DX: S42.251A Displaced fracture of greater tuberosity of right humerus, initial encounter for closed fracture (principal); S46.011A Strain of muscle(s) and tendon(s) of the rotator cuff of right shoulder, initial encounter; X58.XXXA Exposure to other specified factors, initial encounter; Y93.9 Activity, unspecified; Y92.9 Unspecified place or not applicable; Y99.9 Unspecified external cause status
CPT/HCPCS: 36415; 76000-TC; 80053; 81003; 81015; 85025; 85610; 85730; 93005; 93010; 94760

== ENCOUNTER 2018-06-14 01:30 | Inpatient (IN) | payer OTHER, MEDICARE ==
[2018-06-14] MEDS ORDERED: SODIUM CHLORIDE 1,000 ML IV SCH ×2 (02:45→09:15)
--- NOTE | 2018-06-14 02:49 | PDOC ---
History of Present Illness - History of Present Illness Initial Comments: 06/14/18 04:33 Sharda Slaughter (Sister): [phone] <Salud Hernandez - Last Filed: 06/14/18 04:33> - History of Present Illness Initial Comments: 06/14/18 03:05 The patient is an 83 year old female, with significant past medical history of hypertension, hyperlipidemia, and anxiety, who presents to the ED with lightheadness today. Neighbor is at bedside and reports patient has a colonoscopy scheduled today at 9AM. Patient was prepping for the colonoscopy yesterday by taking Miralax, golytley, and Dulcolax and had a bowel movement at 9PM. Neighbor reports that the patient seemed very shaky and nervous about the procedure. She gave the patient eggs, cheese, and grapes prior to EMS arrival in case her sugar was low. Fingerstick was reportedly normal in the field. During interview, patient seemed very slow to respond to questions. When asked initially if this is her baseline, pt's neighbor reports that it is when she is nervous. Later on, pt's neighbor states that she does not normally have this much difficulty speaking. Last seen normal at 11:30PM. Code quezada activated. HPI is limited due to AMS. Allergies: Sulfa Surgical Hx: left shoulder surgery, Right patella surgery PCP- Dr. Marcelle Mullen <Eliazar Johnson - Last Filed: 06/15/18 08:35> - General Chief Complaint: Weakness Stated Complaint: WEAKNESS Time Seen by Provider: 06/14/18 02:19 NIH Stroke Scale - Last Known Well Date/Time & Onset Date Last Known Well: 06/13/18 Time Last Known Well: 23:30 - Initial Evaluation Level of consciousness: Alert Best gaze (horizontal eye movement): Normal Visual field testing: No visual field loss Facial paresis (Show teeth/raise eyebrows/close eyes tight): Minor paralysis ( flattened nasolabial fold, asymmetry on smiling) Motor Function: Left Arm: Normal Motor Function: Right Arm: Normal (extends arm 90 (or 45) degrees for 10 seconds without drift Motor Function: Left Leg: Normal (extends leg 30 degrees for 5 seconds without drift) Motor Function: Right Leg: Normal (extends leg 30 degrees for 5 seconds without drift) Limb Ataxia: No ataxia Sensory(Use pinprick test arms,legs,trunk,face/side to side): Normal Best language (Describe picture, name items, read sentences): Mild to moderate aphasia Dysarthria (read several words): Mild to moderate slurring of words Extinction and Inattention: No abnormality <Eliazar Johnson - Last Filed: 06/15/18 08:35> Past History <Salud Hernandez - Last Filed: 06/14/18 04:33> - Past Medical History Anemia: No Asthma: No Cancer: No COPD: No HTN: Yes Hypercholesterolemia: Yes - Surgical History Abdominal Surgery: Yes (Hernia repair) Appendectomy: No Cardiac Surgery: No Orthopedic Surgery: Yes (Sheela Garcia) - Immunization History Immunization Up to Date: Yes - Suicide/Smoking/Psychosocial Hx Smoking Status: No Smoking History: Never smoked Have you smoked in the past 12 months: No Number of Cigarettes Smoked Daily: 0 Information on smoking cessation initiated: No Hx Alcohol Use: No Drug/Substance Use Hx: No Substance Use Type: None Hx Substance Use Treatment: No <Eliazar Johnson - Last Filed: 06/15/18 08:35> - Past Medical History Allergies/Adverse Reactions: Allergies Allergy/AdvReac Type Severity Reaction Status Date / Time Sulfa (Sulfonamide Allergy Verified 06/14/18 01:53 Antibiotics) [Sulfa(Sulfonamide Antibiotics)] Home Medications: Ambulatory Orders Amlodipine Besylate [Norvasc -] 10 mg PO DAILY 04/18/14 Metoprolol Succinate [Toprol XL -] 25 mg PO DAILY 04/18/14 Losartan Potassium 100 mg PO DAILY 02/15/17 Alprazolam [Xanax] 0.25 mg PO Q8H PRN #0 tablet MDD 0.75 mg 02/18/17 Cyanocobalamin [Vitamin B12 -] 1,000 mcg PO DAILY tablet 02/18/17 Aspirin [ASA -] 81 mg PO DAILY 06/14/18 Review of Systems - Review of Systems Comments:: 06/14/18 03:10 limited due to clinical condition <Eliazar Johnson - Last Filed: 06/15/18 08:35> *Physical Exam - Vital Signs Last Vital Signs Temp Pulse Resp BP Pulse Ox 97.5 F L 78 20 152/78 97 06/14/18 01:55 06/14/18 01:55 06/14/18 01:55 06/14/18 01:55 06/14/18 02:02 <Salud Hernandez - Last Filed: 06/14/18 04:33> - Vital Signs Last Vital Signs Temp Pulse Resp BP Pulse Ox 97.5 F L 78 20 152/78 99 06/14/18 01:55 06/14/18 01:55 06/14/18 01:55 06/14/18 01:55 06/14/18 01:55 - Physical Exam Comments: 06/14/18 03:11 GENERAL: Awake, alert, in no acute distress. HEAD: No signs of trauma EYES: PERRLA, EOMI, sclera anicteric, conjunctiva clear ENT: Auricles normal inspection, hearing grossly normal, nares patent, oropharynx clear without exudates. dry MM NECK: Normal ROM, supple, no lymphadenopathy, JVD, or masses LUNGS: Breath sounds equal, clear to auscultation bilaterally. No wheezes, and no crackles HEART: Regular rate and rhythm, normal S1 and S2, no murmurs, rubs or gallops ABDOMEN: Soft, nontender, normoactive bowel sounds. No guarding, no rebound. No masses EXTREMITIES: Normal range of motion, no edema. No clubbing or cyanosis. No cords , erythema, or tenderness BACK: No midline spinal tenderness in cervical/thoracic/lumbar region NEUROLOGICAL: +word finding difficulty, +mild L sided NL fold flattening, follows commands, negative pronator drift, 5/5 strength in all 4 extremities, normal sensation to light touch in all 4 extremities, normal cerebellar exam, normal gait, normal reflexes and tone. When asked to repeat "no ifs ands or buts ," pt states "ands ifs buts" SKIN: Warm, Dry, normal turgor, no rashes or lesions noted. <Eliazar Johnson - Last Filed: 06/15/18 08:35> Heart Score/ECG Review #1 06/14/18 03:14 Normal sinus rhythm, rate 98. Normal axis.+ Left bundle branch block. When compared to EKG from 03/09/2017, no significant change. <Eliazar Johnson - Last Filed: 06/15/18 08:35> ED Treatment Course - LABORATORY CBC & Chemistry Diagram: 06/14/18 03:15 06/14/18 03:15 - ADDITIONAL ORDERS Additional order review: 06/14/18 03:15 RBC 4.08 MCV 89.5 MCHC 34.5 RDW 13.4 MPV 8.4 D Neutrophils % 67.9 D Lymphocytes % 26.7 Monocytes % 4.8 Eosinophils % 0.2 D Basophils % 0.4 <Salud Hernandez - Last Filed: 06/14/18 04:33> - LABORATORY CBC & Chemistry Diagram: 06/15/18 05:30 06/15/18 05:30 - RADIOLOGY Radiology Studies Ordered: Category Date Time Status HEAD CT (STROKE) [CT] Stat CT Scan 06/14/18 02:43 Ordered CHEST X-RAY PORTABLE* [RAD] Stat Radiology 06/14/18 02:44 Ordered <Eliazar Johnson - Last Filed: 06/15/18 08:35> Medical Decision Making - Medical Decision Making 06/14/18 03:37 Dr. Youssef was paged and notified via phone service. 06/14/18 04:13 Dr. Mullen was paged and notified via phone service. <Salud Hernandez - Last Filed: 06/14/18 04:33> - Medical Decision Making 06/14/18 02:52 83yo F hx HTN, HL, anxiety presents to the ED with dehydration post colonoscopy prep. BP elevated to 150s systolic. Exam with mild to moderate aphasia and mild L sided facial droop. LKN 11:30pm. Code quezada activated. Pt currently at [facility]. WIll discuss with neuro, get stroke labs and admit. 06/14/18 03:49 Upon return from [facility], while nurse was placing IV, pt began to have generalized tonic clonic seizure x2 mins. Pt with sonorous breathing afterwards, placed on NRB, O2 sat 99%, on monitor noted to be tachy to 130s. EKG with AF w RVR. Pt suctioned with some bloody secretions in mouth. Pt began to have lip smacking at which pt 2mg ativan given, lip smacking resolved. FS 210. Case discussed with Dr. Youssef, will load with 500mg Keppra, hold off on TPA Will repeat [facility] 06/14/18 04:05 CMP with sodium of 122 Pt likely acutely hyponatremic due to bowel prep -> confusion, neuro sxs, seizure Last sodium here last year was [address] Youssef WIll give 100mL 3[facility] only be ordered in 500mL bags. Detailed in [employer] order that pt is only to get 100mL over 10mins. Confirmed verbally with nurse that pt is to get 100mL and not 500mL. 06/14/18 04:18 PT at [facility] Case discussed with ICU resident, Dr. Ozuna Case discussed with Dr. Mullen, reports pts last sodium was normal Pt accepted for admission <Eliazar Johnson - Last Filed: 06/15/18 08:35> *DC/Admit/Observation/Transfer <Salud Hernandez - Last Filed: 06/14/18 04:33> - Discharge Dispostion Decision to Admit order: Yes - Attestations Physician Attestion: 06/14/18 04:21 I, Dr. Eliazar Johnson MD, attest that this document has been prepared under my direction and personally reviewed by me in its entirety. I further attest, that it accurately reflects all work, treatment, procedures and medical decision -making performed by me. <Eliazar Johnson - Last Filed: 06/15/18 08:35> Diagnosis at time of Disposition: Acute hyponatremia, Seizure, Word finding difficulty, Dehydration - Discharge Dispostion Condition at time of disposition: Guarded
[2018-06-14] MEDS ORDERED: LORazepam 2 MG/ML SDV VIAL ONE (03:17)
[2018-06-14 03:28] LABS: BASO % 0.4 % (0-2.0); EOS % 0.2 % (0-4.5); HEMATOCRIT 36.5 % (32.4-45.2); HEMOGLOBIN 12.6 GM/dL (10.7-15.3); LYMPH % 26.7 % (8-40); MCH 30.9 pg (25.7-33.7); MCHC 34.5 g/dl (32.0-36.0); MEAN CELL VOLUME 89.5 fl (80-96); MEAN PLT VOLUME 8.4 fl (7.5-11.1); MONO % 4.8 % (3.8-10.2); NEUT % 67.9 % (42.8-82.8); PLATELET COUNT 308 K/MM3 (134-434); RBC 4.08 M/mm3 (3.60-5.2); RDW 13.4 % (11.6-15.6); WHITE BLOOD COUNT 9.9 K/mm3 (4.0-10.0)
[2018-06-14] MEDS ORDERED: levETIRAcetam 500 MG/5 ML INJECTION VIAL IVPB ONE ×2 (03:40→03:50)
[2018-06-14 03:42] LABS: INR 0.93 (0.83-1.09)
[2018-06-14 03:53] LABS: ALBUMIN 3.6 g/dl (3.4-5.0); ALK PHOS 82 U/L (45-117); ANION GAP 16 MMOL/L (8-16); BILIRUBIN,TOTAL 1.2 mg/dL (0.2-1); BLOOD UREA NITROGEN 15 mg/dL (7-18); CALCIUM 8.5 mg/dL (8.5-10.1); CHLORIDE 86 mmol/L (98-107); CHOLESTEROL 160 mg/dL (50-200); CO2 19 mmol/L (21-32); CREATININE 0.5 mg/dL (0.55-1.3); GLUCOSE,RANDOM 145 mg/dL (74-106); HDL CHOLESTEROL 79 mg/dL (40-60); POTASSIUM 3.2 mmol/L (3.5-5.1); SGOT/AST 19 U/L (15-37); SGPT/ALT 25 U/L (13-61); SODIUM 122 mmol/L (136-145); TOT PROT 6.7 g/dl (6.4-8.2); TRIGLYCERIDES 63 mg/dL (0-150)
[2018-06-14] MEDS ORDERED: SODIUM CHLORIDE 3% 500 ML/500 ML INFUS.BAG IV ONE ×4 (03:57→06:48)
[2018-06-14] MEDS ORDERED: ONDANSETRON 4 MG/2 ML VIAL ONE (04:23)
[2018-06-14 04:28] LABS: VENOUS PC02 44.6 mmHg (38-52); VENOUS PO2 64.5 mmHg (28-48)
--- NOTE | 2018-06-14 04:28 | CONSULT ---
Consultation: REQUESTING PROVIDER: CONSULT REQUEST: We have been asked to medically evaluate this patient for ( cute symptomatic hyponatremia). HISTORY OF PRESENT ILLNESS: This is an 83 yo F with PMH of HTN, HLD and anxiety, who presened with lightheadedness and slurred speech, then proceeded to have a tonic clonic SZ in ED and an episode of new AF RVR. Found to have Hyponatremia 122, likely acutely induced by bowel prep she underwent yesterday for a routine colonoscopy. Na 1 yr ago was wnl. durine exam patient vomits what appears to be bowel prep but remains 100% O2 sat History obtained from EMR and neighbor. PCP Dr. Marcelle Mullen contacted by ED REVIEW OF SYSTEMS: unable to obtain due to AMS PHYSICAL EXAMINATION Vital Signs - 24 hr 06/14/18 06/14/18 01:55 02:02 Temperature 97.5 F L Pulse Rate 78 Respiratory 20 Rate Blood Pressure 152/78 O2 Sat by Pulse 99 97 Oximetry (%) GENERAL: obtunded, drooling, responds to sternal rub HEAD: Normal with no signs of trauma. EYES: Pupils equal 2 mm, round and reactive to light, sclera anicteric, conjunctiva clear. No lid lag. EARS, NOSE, THROAT: Moist mucous membranes. NECK: supple LUNGS: Breath sounds equal, clear to auscultation bilaterally. HEART: Regular rate and rhythm, normal S1 and S2 ABDOMEN: Soft, not distended, globally reduced bowel sounds, no guarding, no rebound, no masses. MUSCULOSKELETAL: No bony deformities UPPER EXTREMITIES: 2+ pulses, warm, well-perfused. No peripheral edema. LOWER EXTREMITIES: 2+ pulses, warm, well-perfused. No peripheral edema. NEUROLOGICAL: extremely lethargic, retracts from pain, moves all extremities to pain. GCS 6 PSYCHIATRIC: severely lethargic SKIN: Warm, dry Laboratory Results - last 24 hr 06/14/18 06/14/18 06/14/18 03:15 03:15 03:15 WBC 9.9 RBC 4.08 Hgb 12.6 Hct 36.5 D MCV 89.5 MCH 30.9 MCHC 34.5 RDW 13.4 Plt Count 308 D MPV 8.4 D Absolute Neuts (auto) 6.7 Neutrophils % 67.9 D Lymphocytes % 26.7 Monocytes % 4.8 Eosinophils % 0.2 D Basophils % 0.4 Nucleated RBC % 0 PT with INR 11.00 INR 0.93 Sodium 122 L Potassium 3.2 L Chloride 86 L Carbon Dioxide 19 L Anion Gap 16 BUN 15 Creatinine 0.5 L Creat Clearance w eGFR > 60 Random Glucose 145 H Calcium 8.5 Total Bilirubin 1.2 H AST 19 ALT 25 Alkaline Phosphatase 82 Creatine Kinase 128 Troponin I 0.02 Total Protein 6.7 Albumin 3.6 Triglycerides 63 Cholesterol 160 Total LDL Cholesterol 73 HDL Cholesterol 79 H Active Medications Generic Name Dose Route Start Last Admin Trade Name Simon PRN Reason Stop Dose Admin Sodium Chloride 1,000 mls @ 42 mls/hr 06/14/18 02:45 06/14/18 03:41 Normal Saline - IV 42 mls/hr ASDIR STAR Administration Sodium Chloride 500 ml in 500 mls @ 100 mls/hr 06/14/18 03:57 Sodium Chloride 3% IV 06/14/18 08:56 ONCE ONE ASSESSMENT/PLAN: This is an 83 yo F with PMH of HTN, HLD and anxiety, who presented with lightheadedness, slurred speech, tonic clonic SZ in ED and an episode of new AF RVR, Found to have Hyponatremia Acute moderate hyponatremia with evidence of increased intractanial pressure; bowel prep induced Hypokalemia New onset AF; hyponatremia induced tonic clonic SZ; hyponatremia induced Obtunded GCS6, aspiration risk. -NA 122 -Hypertonic saline given in ED 100cc; repeat BMP and consider 1-2 more doses over 10 min -rapid reversal is possible; give 1 mcg desmopressin q6 hr x 4 doses to prevent ODS -fluid restriction <800cc/day -KCL 10 iv x 2 -urine lytes -f/u BMP. goal NA correction 4-6/24 hr should prevent herniation -initial head ct w/o cont wnl. repeat. -HR controlled; tele monitoring goal < 110 bpm. expect return to sinus after hyponatremia resolution. correct K, f/u mag phos -Keppra 500 bid iv -aspiration precautions, head of bed elevation. consider intubation if O2 sat drops -am cxr -renal consult Dispo: We will continue to follow the patient. Thank you for this consultative opportunity. Problem List - Problems (1) Hyperlipidemia Code(s): E78.5 - HYPERLIPIDEMIA, UNSPECIFIED (2) Altered mental status Code(s): R41.82 - ALTERED MENTAL STATUS, UNSPECIFIED (3) Atrial fibrillation with RVR Code(s): I48.91 - UNSPECIFIED ATRIAL FIBRILLATION (4) Acute hyponatremia Code(s): E87.1 - HYPO-OSMOLALITY AND HYPONATREMIA (5) Seizure Code(s): R56.9 - UNSPECIFIED CONVULSIONS (6) HTN (hypertension) Code(s): I10 - ESSENTIAL (PRIMARY) HYPERTENSION (7) Cerebral hyponatremia Code(s): E87.1 - HYPO-OSMOLALITY AND HYPONATREMIA (8) Hyponatremia with normal extracellular fluid volume Code(s): E87.1 - HYPO-OSMOLALITY AND HYPONATREMIA Visit type - Emergency Visit Emergency Visit: Yes Care time: The patient presented to the Emergency Department on the above date and was hospitalized for further evaluation of their emergent condition. - New Patient This patient is new to me today: Yes Date on this admission: 06/14/18 - Critical Care Critical Care patient: Yes Total Critical Care Time (in minutes): 45 Critical Care Statement: The care of this patient involved high complexity decision making to prevent further life threatening deterioration of the patient 's condition and/or to evaluate & treat vital organ system(s) failure or risk of failure.
[2018-06-14 04:30] LABS: VENOUS PH 7.16 (7.32-7.42)
[2018-06-14 04:57] LABS: ARTERIAL BLOOD GAS PCO2 49.8 mmHg (35-45)
[2018-06-14 04:58] LABS: ALLENS TEST POSITIVE; ARTERIAL BLD GAS O2 SATURATION 95.7 % (90-98.9); ARTERIAL BLOOD GAS BASE EXCESS -5.4 meq/l (-2-2); ARTERIAL BLOOD GAS PO2 96.3 mmHg (68-100)
[2018-06-14 04:59] LABS: ARTERIAL BLOOD GAS pH 7.25 (7.35-7.45)
[2018-06-14] MEDS: KCL 10 MEQ IVPB 10 MEQ/100 ML INFUS.BAG IVPB SCH ×4 (05:36→21:15)
[2018-06-14] MEDS ORDERED: DESMOPRESSIN ACETATE 4 MCG/ML AMP IVPB ONE ×2 (05:45→19:28)
[2018-06-14 06:38] LABS: ANION GAP 9 MMOL/L (8-16); BLOOD UREA NITROGEN 14 mg/dL (7-18); CALCIUM 7.5 mg/dL (8.5-10.1); CHLORIDE 91 mmol/L (98-107); CO2 24 mmol/L (21-32); CREATININE 0.6 mg/dL (0.55-1.3); GLUCOSE,RANDOM 129 mg/dL (74-106); MAGNESIUM 1.9 mg/dL (1.8-2.4); PHOSPHOROUS 3.3 mg/dL (2.5-4.9); POTASSIUM 3.6 mmol/L (3.5-5.1); SODIUM 124 mmol/L (136-145)
[2018-06-14] MEDS ORDERED: CALCIUM GLUCONATE 10% - 1,000 MG/10 ML VIAL IVPB ONE (08:14)
--- NOTE | 2018-06-14 08:53 | HP ---
Admitting History and Physical - Admission Chief Complaint: altered mental status History of Present Illness: 83 yo female with PMH significant for HTN, anxiety and non obstructive CAD, was preparing yesterday for colonoscopy when she became tremolous, and confused. She was brought to ER by her neighbor. During her ER evaluation the patient developed seizures. She was found to be hyponatremic and 3% saline was started. Over 2 hour period she corrected 2 ИВАН NA/l. Labs from this am are pending for possibly adjusting the IV to NS. The patient received Lorazepam and Keppra and she is not responsive to me, but arousable by mechanical stimuli. There was one episode of A fib by EKG registered at 3:36 am. Keppra 500 mg was given last night at 10 PM, ICU resident administered her Desmopressin around 5 am . Lorazepam was given 2 mg at [address] scan of the brain was negative for acute intracranial events, lucency of the calvarium was also noted and loss of brain matter. This will further be assessed by me in the office once the patient will be discharged. History Source: Friend Limitations to Obtaining History: Clinical Condition - Past Medical History Cardiovascular: Yes: CAD, HTN Heme/Onc: Yes: B12 Deficiency Psych: Yes: Anxiety - Smoking History Smoking history: Never smoked Have you smoked in the past 12 months: No Aproximately how many cigarettes per day: 0 - Alcohol/Substance Use Hx Alcohol Use: No History of Substance Use: reports: None - Social History History of Recent Travel: No Home Medications - Allergies Allergies/Adverse Reactions: Allergies Allergy/AdvReac Type Severity Reaction Status Date / Time Sulfa (Sulfonamide Allergy Verified 06/14/18 01:53 Antibiotics) [Sulfa(Sulfonamide Antibiotics)] - Home Medications Home Medications: Ambulatory Orders Amlodipine Besylate [Norvasc -] 10 mg PO DAILY 04/18/14 Metoprolol Succinate [Toprol XL -] 25 mg PO DAILY 04/18/14 Losartan Potassium 100 mg PO DAILY 02/15/17 Alprazolam [Xanax] 0.25 mg PO Q8H PRN #0 tablet MDD 0.75 mg 02/18/17 Cyanocobalamin [Vitamin B12 -] 1,000 mcg PO DAILY tablet 02/18/17 Aspirin [ASA -] 81 mg PO DAILY 06/14/18 Review of Systems Unable to obtain ROS, reason: altered mental status - Review of Systems Constitutional: reports: Other (confused and lethargic) Eyes: reports: Other (can not obtain) HENT: reports: Other (can not obtain) Neck: reports: Other (can not obtain) Respiratory: reports: Other (can not obtain) Gastrointestinal: reports: Other (loose stools and incontinence) Genitourinary: reports: Incontinence Breasts: reports: No Symptoms Reported Neurological: reports: Seizure (last night one episode) Psychiatric: reports: Anxiety Physical Examination Vital Signs: Vital Signs Temperature 98 F 06/14/18 08:36 Pulse Rate 81 06/14/18 08:36 Respiratory Rate 19 06/14/18 08:36 Blood Pressure 129/61 06/14/18 08:36 O2 Sat by Pulse Oximetry (%) 100 06/14/18 08:36 Constitutional: Yes: Other (confused, tremolous) Eyes: Yes: PERRL HENT: Yes: Atraumatic, Normocephalic Neck: Yes: Supple Cardiovascular: Yes: Regular Rate and Rhythm. No: Murmur Gastrointestinal: Yes: Soft. No: Hepatomegaly, Splenomegaly ...Rectal Exam: Yes: Deferred Edema: No Peripheral Pulses WNL: Yes Neurological: Yes: Unresponsive, Other (pinpoint pupils) Labs: CBC, BMP 06/14/18 03:15 Imaging - Results X-ray: Other (no pleural effusion no infiltrate, no cardiomegaly) Cat Scan: Other (no acute intracranial events, calvarium lucency) Problem List - Problems (1) Acute hyponatremia Assessment/Plan: NA at 8 am 127 corrected at 1 Иван/h stop 3%saline repeat Na in 4 hours Code(s): E87.1 - HYPO-OSMOLALITY AND HYPONATREMIA (2) Atrial fibrillation with RVR Assessment/Plan: the patient was on Toprol XL 25 mg daily , not sure when her last dose was ingested, currently HR is controlled d/w Dr. Garcia Cardiology he will follow upon the patient Code(s): I48.91 - UNSPECIFIED ATRIAL FIBRILLATION (3) Altered mental status Assessment/Plan: secondary to sedation with Lorazepam and possibly to hyponatremia, definitely more deteriorated compared to admission Code(s): R41.82 - ALTERED MENTAL STATUS, UNSPECIFIED Qualifiers: Altered mental status type: disorientation Qualified Code(s): R41.0 - Disorientation, unspecified (4) CAD (coronary artery disease) Assessment/Plan: one episode of Afib during the night will monitor repeat EKG correct lytes Code(s): I25.10 - ATHSCL HEART DISEASE OF [place] CORONARY ARTERY W/O ANG PCTRS Qualifiers: Coronary Disease-Associated Artery/Lesion type: [place] artery [place] vs. transplanted heart: [place] heart Associated angina: without angina Qualified Code(s): I25.10 - Atherosclerotic heart disease of [place] coronary artery without angina pectoris (5) Hypocalcemia Assessment/Plan: calcium gluconate 1000mg iv Code(s): E83.51 - HYPOCALCEMIA
[2018-06-14] MEDS ORDERED: CALCIUM GLUCONATE 10% - 1,000 MG/10 ML VIAL ONE (08:56)
[2018-06-14 09:06] LABS: ALK PHOS 70 U/L (45-117); ANION GAP 12 MMOL/L (8-16); BILIRUBIN,TOTAL 0.8 mg/dL (0.2-1); BLOOD UREA NITROGEN 12 mg/dL (7-18); CALCIUM 7.6 mg/dL (8.5-10.1); CHLORIDE 96 mmol/L (98-107); CO2 18 mmol/L (21-32); CREATININE 0.4 mg/dL (0.55-1.3); GLUCOSE,RANDOM 122 mg/dL (74-106); SGOT/AST 23 U/L (15-37); SGPT/ALT 23 U/L (13-61); SODIUM 127 mmol/L (136-145); TOT PROT 5.7 g/dl (6.4-8.2)
[2018-06-14] MEDS ORDERED: metoPROLOL SUCCINATE 25 MG TAB.SR.24H (FP) PO SCH (10:00)
[2018-06-14] MEDS ORDERED: LOSARTAN POTASSIUM 50 MG TABLET (FP) PO SCH (10:00)
[2018-06-14] MEDS ORDERED: amLODIPine BESYLATE 10 MG TABLET (FP) PO SCH (10:00)
[2018-06-14 10:03] LABS: URINE APPEARANCE CLEAR; URINE BILIRUBIN NEGATIVE (<2.0 mg/dL); URINE COLOR STRAW; URINE GLUCOSE (UA) 1+ (NEGATIVE); URINE KETONE 1+ (NEGATIVE); URINE LEUK ESTERASE NEGATIVE (NEGATIVE); URINE NITRITE NEGATIVE (NEGATIVE); URINE PROTEIN NEGATIVE (NEGATIVE); URINE UROBILINOGEN NEGATIVE mg/dL (0.2-1.0)
[2018-06-14 10:09] LABS: URINE MUCUS RARE
[2018-06-14 10:12] LABS: URINE CREATININE < 13.0 mg/dL (30-50)
--- NOTE | 2018-06-14 10:23 | CON.CARD ---
Consult Consult Specialty:: Cardiology Referred by:: Marcelle Mullen MD Reason for Consultation:: Paroxysmal afib - History of Present Illness Chief Complaint: Altered mental status History of Present Illness: 83 yo female h/o HTN, 1 vessel CAD, prepping for for colonoscopy when she became tremulous, slurred speech and became confused with tonic clonic seizure. She was found to be hyponatremic 122 and 3% saline was started. Over 2 hour period she corrected 2 ИВАН NA/l. The patient received Lorazepam and Keppra and she is not responsive to me, but arousable by mechanical stimuli. Also had episode of Afib by EKG registered at 3:36 am. Keppra 500 mg was given last night , administered her Desmopressin around 5 am, Lorazepam was given 2 mg at [address] scan of the brain was negative for acute intracranial events, lucency of the calvarium was also noted and loss of brain matter. - History Source History Provided By: Medical Record Limitations to Obtaining History: Clinical Condition - Past Medical History Cardio/Vascular: Yes: CAD, HTN Psych: Yes: Anxiety - Alcohol/Substance Use Hx Alcohol Use: No - Smoking History Smoking history: Never smoked Have you smoked in the past 12 months: No Aproximately how many cigarettes per day: 0 Home Medications - Allergies Allergies/Adverse Reactions: Allergies Allergy/AdvReac Type Severity Reaction Status Date / Time Sulfa (Sulfonamide Allergy Verified 06/14/18 01:53 Antibiotics) [Sulfa(Sulfonamide Antibiotics)] - Home Medications Home Medications: Ambulatory Orders Amlodipine Besylate [Norvasc -] 10 mg PO DAILY 04/18/14 Metoprolol Succinate [Toprol XL -] 25 mg PO DAILY 04/18/14 Losartan Potassium 100 mg PO DAILY 02/15/17 Alprazolam [Xanax] 0.25 mg PO Q8H PRN #0 tablet MDD 0.75 mg 02/18/17 Cyanocobalamin [Vitamin B12 -] 1,000 mcg PO DAILY tablet 02/18/17 Aspirin [ASA -] 81 mg PO DAILY 06/14/18 Review of Systems Unable to obtain ROS, reason: Altered mental status Vital Signs: Vital Signs Temperature 98 F 06/14/18 08:36 Pulse Rate 81 06/14/18 08:36 Respiratory Rate 19 06/14/18 08:36 Blood Pressure 129/61 06/14/18 08:36 O2 Sat by Pulse Oximetry (%) 100 06/14/18 08:36 Constitutional: Yes: No Distress, Calm, Thin Neck: Yes: Supple Respiratory: Yes: Regular, Diminished, On Nasal O2 Gastrointestinal: Yes: Normal Bowel Sounds, Soft Cardiovascular: Yes: Regular Rate and Rhythm JVD: No Carotid Bruit: No Heart Sounds: Yes: S1, S2 Murmur: Yes: Systolic Murmur, Grade 1 Edema: No - Other Data Labs, Other Data: CBC, BMP 06/14/18 03:15 06/14/18 08:07 INR, PTT INR 0.93 (0.83-1.09) 06/14/18 03:15 Troponin, BNP 06/14/18 03:15 Troponin I 0.02 Troponin, BNP 06/14/18 03:15 Troponin I 0.02 NSR LBBB Echo: Report Reviewed Ejection Fraction %: LVEF > or = 40 % Imaging - Results Chest X-ray: Report Reviewed (NAD) Cat Scan: Report Reviewed (HCT No acute changes) Problem List - Problems (1) Acute hyponatremia Code(s): E87.1 - HYPO-OSMOLALITY AND HYPONATREMIA (2) Altered mental status Code(s): R41.82 - ALTERED MENTAL STATUS, UNSPECIFIED Qualifiers: Altered mental status type: disorientation Qualified Code(s): R41.0 - Disorientation, unspecified (3) Atrial fibrillation with RVR Code(s): I48.91 - UNSPECIFIED ATRIAL FIBRILLATION (4) Cerebral hyponatremia Code(s): E87.1 - HYPO-OSMOLALITY AND HYPONATREMIA (5) Seizure Code(s): R56.9 - UNSPECIFIED CONVULSIONS (6) CAD (coronary artery disease) Code(s): I25.10 - ATHSCL HEART DISEASE OF [place] CORONARY ARTERY W/O ANG PCTRS Qualifiers: Coronary Disease-Associated Artery/Lesion type: [place] artery [place] vs. transplanted heart: [place] heart Associated angina: without angina Qualified Code(s): I25.10 - Atherosclerotic heart disease of [place] coronary artery without angina pectoris (7) HTN (hypertension) Code(s): I10 - ESSENTIAL (PRIMARY) HYPERTENSION Qualifiers: Hypertension type: essential hypertension Qualified Code(s): I10 - Essential (primary) hypertension Assessment/Plan Echo: 04/21/2018 Normal LV and RV size and fxn, impaied LV relaxation, mod TR, mild MR 1. Toxic metabolic encephelopathy and seizure referable to acute hyponatremia 2. Paroxysmal afib with RVR [id number] 3. 1 vessel CAD, angina pectoris 4. HTN/HCVD 5. LBBB P:1. Correcting hypnatremia, seizure prophylaxis short-term, telemetry monitoring to assess arrhythmia burden 2. Continue Norvasc 10 qd, losartan 100qd, Toprol XL 25 bid, start Eliquis 2.5 bid (age>80, wt<60 kg) given elevated risk score 3. Thank you for consultative opportunity
[2018-06-14 10:26] LABS: OSMOLALITY,SERUM 250 mosm/kg (278-305)
[2018-06-14] MEDS: levETIRAcetam 500 MG/5 ML INJECTION VIAL IVPB SCH ×2 (11:41→22:23)
[2018-06-14] MEDS ORDERED: DEXTROSE 5%-WATER - 1,000 ML IV SCH ×2 (11:45→12:36)
--- NOTE | 2018-06-14 11:54 | CONSULT ---
Consult Consult Specialty:: Nephrology Reason for Consultation:: hyponatremia - History of Present Illness Chief Complaint: light headedness History of Present Illness: Pt is an 83 year old female with pmhx of HTN, HLD, and anxiety who presented to the ER with light headedness. Pt was getting a pre for a colonoscopy which was supposed to be today. Pt became altered and lethargic. She was found to be hyponatremic in the ER. She did have a seizure while in ED. Pt was started to hypertonic saline. It is not clear how much she received but it was likely more than a 500 cc bag. Her repeat sodium was found to have corrected too rapidly. She was given a dose of desmopressin. She is lethargic and not answering questions. I was called to see her this morning after she received the hypertonic saline and desmopressin. Pts fluids were then switched to NS. - History Source History Provided By: Medical Record - Past Medical History Cardio/Vascular: Yes: CAD, HTN Psych: Yes: Anxiety - Alcohol/Substance Use Hx Alcohol Use: No - Smoking History Smoking history: Never smoked Have you smoked in the past 12 months: No Aproximately how many cigarettes per day: 0 Home Medications - Allergies Allergies/Adverse Reactions: Allergies Allergy/AdvReac Type Severity Reaction Status Date / Time Sulfa (Sulfonamide Allergy Verified 06/14/18 01:53 Antibiotics) [Sulfa(Sulfonamide Antibiotics)] - Home Medications Home Medications: Ambulatory Orders Amlodipine Besylate [Norvasc -] 10 mg PO DAILY 04/18/14 Metoprolol Succinate [Toprol XL -] 25 mg PO DAILY 04/18/14 Losartan Potassium 100 mg PO DAILY 02/15/17 Alprazolam [Xanax] 0.25 mg PO Q8H PRN #0 tablet MDD 0.75 mg 02/18/17 Cyanocobalamin [Vitamin B12 -] 1,000 mcg PO DAILY tablet 02/18/17 Aspirin [ASA -] 81 mg PO DAILY 06/14/18 Family Disease History - Family Disease History Family History: Unable to Obtain Review of Systems Unable to obtain ROS, reason: pt lethargic Physical Exam Vital Signs: Vital Signs Temperature 98 F 06/14/18 08:36 Pulse Rate 81 06/14/18 08:36 Respiratory Rate 19 06/14/18 08:36 Blood Pressure 129/61 06/14/18 08:36 O2 Sat by Pulse Oximetry (%) 100 06/14/18 08:36 Constitutional: Yes: Calm Eyes: Yes: Conjunctiva Clear Cardiovascular: Yes: S1, S2 Respiratory: Yes: CTA Bilaterally Gastrointestinal: Yes: Soft Renal/: Yes: Incontinence Musculoskeletal: Yes: WNL Edema: No Neurological: Yes: Lethargy Labs: CBC, BMP 06/14/18 03:15 06/14/18 08:07 Laboratory Tests 06/14/18 06/14/18 06/14/18 03:15 05:59 08:07 Sodium 122 L 124 L 127 L 06/14/18 12:24 Sodium 128 L Imaging - Results Chest X-ray: Report Reviewed Cat Scan: Report Reviewed Problem List - Problems (1) Acute hyponatremia Code(s): E87.1 - HYPO-OSMOLALITY AND HYPONATREMIA (2) Altered mental status Code(s): R41.82 - ALTERED MENTAL STATUS, UNSPECIFIED (3) Dehydration Code(s): E86.0 - DEHYDRATION (4) Hyperlipidemia Code(s): E78.5 - HYPERLIPIDEMIA, UNSPECIFIED (5) HTN (hypertension) Code(s): I10 - ESSENTIAL (PRIMARY) HYPERTENSION Assessment/Plan Current Medications Generic Name Dose Route Start Last Admin Trade Name Freq PRN Reason Stop Dose Admin Amlodipine Besylate 10 mg 06/14/18 10:00 Norvasc - PO DAILY STAR Dextrose 1,000 mls @ 100 mls/hr 06/14/18 11:45 D5w - IV .Q10H STAR Levetiracetam 500 mg 06/14/18 10:00 06/14/18 11:41 Keppra Injection - IVPB 500 mg BID STAR Administration Losartan Potassium 100 mg 06/14/18 10:00 Cozaar - PO DAILY STAR Metoprolol Succinate 25 mg 06/14/18 10:00 Toprol Xl - PO DAILY STAR Laboratory Tests 06/14/18 09:36 Ur Random Sodium 98 Impression 1. Hyponatremia 2. HTN 3. seizure 4. anxiety 5. change in mental status Plan - stop saline and start d5w in order to slow the rate of sodium rising - admit pt to the ICU - check sodium every three hours - follow up urine studies - goal is correct sodium but not more than 10 meq over 24 hours - sodium should not be higher than about 132 but 3 am - discussed with ICU team - discussed with pmd - will follow pt closely - urine sodium is likely elevated secondary to hypertonic saline - check tsh and cortisol level - monitor mental status through the course of the day - neuro eval Dr Rodriges
--- NOTE | 2018-06-14 11:58 | EKG ---
Test Reason : Blood Pressure : / mmHG Vent. Rate : 113 BPM Atrial Rate : 101 BPM P-R Int : 000 ms QRS Dur : 148 ms QT Int : 416 ms P-R-T Axes : 000 007 151 degrees QTc Int : 570 ms ATRIAL FIBRILLATION WITH RAPID VENTRICULAR RESPONSE LEFT BUNDLE BRANCH BLOCK ABNORMAL ECG WHEN COMPARED WITH ECG OF 09-MAR-2017 08:31, ATRIAL FIBRILLATION HAS REPLACED SINUS RHYTHM VENT. RATE HAS INCREASED BY 41 BPM QRS DURATION HAS INCREASED ST NOW DEPRESSED IN INFERIOR LEADS ST NOW DEPRESSED IN LATERAL LEADS T WAVE INVERSION MORE EVIDENT IN LATERAL LEADS Confirmed by RHINA POWERS, MAXINE ([id number]) on 06/14/2018 11:57:37 AM Referred By: Confirmed By:MAXINE LANTIGUA MD
--- NOTE | 2018-06-14 12:11 | CON.NEURO ---
Consult - History of Present Illness History of Present Illness: 83 yo female with PMH significant for HTN, anxiety and non obstructive CAD, was preparing yesterday for colonoscopy when she became tremolous, and confused. She was brought to ER by her neighbor. During her ER evaluation the patient developed seizures. She was found to be hyponatremic and 3% saline was started. Over 2 hour period she corrected 2 ИВАН NA/l. Labs from this am are pending for possibly adjusting the IV to NS. The patient received Lorazepam and Keppra and she is not responsive to me, but arousable by mechanical stimuli. Tehre was one episode of A fib by EKG registered at 3:36 am. Keppra 500 mg was given last night at 10 PM, ICU resident administered her Desmopressin around 5 am . Lorazepam was given 2 mg at [address] scan of the brain was negative for acute intracranial events, lucency of the calvarium was also noted and loss of brain matter NA 122 this AM more responsive , no further seizure , started on hypertonic saline - Past Medical History Cardio/Vascular: Yes: CAD, HTN Psych: Yes: Anxiety - Alcohol/Substance Use Hx Alcohol Use: No - Smoking History Smoking history: Never smoked Have you smoked in the past 12 months: No Aproximately how many cigarettes per day: 0 Home Medications - Allergies Allergies/Adverse Reactions: Allergies Allergy/AdvReac Type Severity Reaction Status Date / Time Sulfa (Sulfonamide Allergy Verified 06/14/18 01:53 Antibiotics) [Sulfa(Sulfonamide Antibiotics)] - Home Medications Home Medications: Ambulatory Orders Amlodipine Besylate [Norvasc -] 10 mg PO DAILY 04/18/14 Metoprolol Succinate [Toprol XL -] 25 mg PO DAILY 04/18/14 Losartan Potassium 100 mg PO DAILY 02/15/17 Alprazolam [Xanax] 0.25 mg PO Q8H PRN #0 tablet MDD 0.75 mg 02/18/17 Cyanocobalamin [Vitamin B12 -] 1,000 mcg PO DAILY tablet 02/18/17 Aspirin [ASA -] 81 mg PO DAILY 06/14/18 Physical Exam-Neuro Vital Signs: Vital Signs Temperature 98 F 06/14/18 08:36 Pulse Rate 81 06/14/18 08:36 Respiratory Rate 19 06/14/18 08:36 Blood Pressure 129/61 06/14/18 08:36 O2 Sat by Pulse Oximetry (%) 100 06/14/18 08:36 Labs: CBC, BMP 06/14/18 03:15 06/14/18 08:07 INR, PTT INR 0.93 (0.83-1.09) 06/14/18 03:15 - Neuro Exam Level Of Consciousness: Yes: Alert (sleepy ), Sedated (sleppy but arousable, EOMI, no facial, motor 5/5, no drift, non focal ) Assessment/Plan 83 yo female with PMH significant for HTN, anxiety and non obstructive CAD, was preparing yesterday for colonoscopy when she became tremolous, and confused. She was brought to ER by her neighbor. During her ER evaluation the patient developed seizures. She was found to be hyponatremic and 3% saline was started. Over 2 hour period she corrected 2 ИВАН NA/l. Labs from this am are pending for possibly adjusting the IV to NS. The patient received Lorazepam and Keppra and she is not responsive to me, but arousable by mechanical stimuli. Tehre was one episode of A fib by EKG registered at 3:36 am. Keppra 500 mg was given last night at 10 PM, ICU resident administered her Desmopressin around 5 am . Lorazepam was given 2 mg at [address] scan of the brain was negative for acute intracranial events, lucency of the calvarium was also noted and loss of brain matter NA 122 this AM more responsive , no further seizure , started on hypertonic saline AP : symptomatic seizure secondary to hyponatremia NA correction , avoid acute overcorrection KEppra 500BID x 3 days then can DC neuro status improving DR LOYOLA
[2018-06-14] MEDS: LOSARTAN POTASSIUM 50 MG TABLET (FP) PO SCH (12:34)
[2018-06-14] MEDS: metoPROLOL SUCCINATE 25 MG TAB.SR.24H (FP) PO SCH (12:35)
[2018-06-14] MEDS: amLODIPine BESYLATE 10 MG TABLET (FP) PO SCH (12:35)
[2018-06-14 12:36] LABS: ARTERIAL BLOOD GAS pH 7.41 (7.35-7.45)
[2018-06-14 12:37] LABS: ALLENS TEST POSITIVE; ARTERIAL BLD GAS O2 SATURATION 98.6 % (90-98.9); ARTERIAL BLOOD GAS BASE EXCESS -2.5 meq/l (-2-2); ARTERIAL BLOOD GAS PCO2 33.8 mmHg (35-45)
[2018-06-14] MEDS ORDERED: HEPARIN NA (PORCINE) 5,000 UNITS/ML 1ML VIAL SQ SCH (13:15)
[2018-06-14] MEDS ORDERED: APIXABAN 5 MG TABLET PO SCH (13:15)
[2018-06-14 13:21] LABS: ALBUMIN 2.9 g/dl (3.4-5.0); ALK PHOS 64 U/L (45-117); ANION GAP 10 MMOL/L (8-16); BILIRUBIN,TOTAL 0.7 mg/dL (0.2-1); BLOOD UREA NITROGEN 11 mg/dL (7-18); CALCIUM 7.9 mg/dL (8.5-10.1); CHLORIDE 95 mmol/L (98-107); CO2 22 mmol/L (21-32); CREATININE 0.4 mg/dL (0.55-1.3); GLUCOSE,RANDOM 87 mg/dL (74-106); POTASSIUM 3.6 mmol/L (3.5-5.1); SGOT/AST 27 U/L (15-37); SGPT/ALT 23 U/L (13-61); SODIUM 128 mmol/L (136-145); TOT PROT 5.7 g/dl (6.4-8.2)
--- NOTE | 2018-06-14 13:30 | PN ---
Teaching Attending Note Name of Resident: Richard Phillips ATTENDING PHYSICIAN STATEMENT I saw and evaluated the patient. I reviewed the resident's note and discussed the case with the resident. I agree with the resident's findings and plan as documented. SUBJECTIVE: Pt seen and examined in the ER. Briefly, 83yo female with h/o HTN, CAD who was being prepped for colonoscopy with dee who presents with altered mental status. Had seizure episode in the ER, found to be hyponatremic, started on hypertonic saline. Also had episode of atrial fibrillation but now back in sinus rhythm. Pt lethargic, opens eyes to name and nods head but falls asleep easily. OBJECTIVE: Vital Signs Period Temp Pulse Resp BP Sys/Castillo Pulse Ox Last 24 Hr 97.5 F-98.1 F 75-85 16-20 119-152/61-96 97-100 Intake & Output 06/11/18 06/12/18 06/13/18 06/14/18 23:59 23:59 23:59 23:59 Intake Total 284 Output Total 240 Balance 44 Weight 49.895 kg Gen: lethargic but arousable Heart: RRR Lung: decreased breath sounds at the bases Abd: soft, nontender Ext: no edema CBC, BMP 06/14/18 03:15 06/14/18 12:24 Active Medications Amlodipine Besylate (Norvasc -) 10 mg PO DAILY [facility] Last Admin: 06/14/18 12:35 Dose: 10 mg Apixaban (Eliquis -) 5 mg PO BID [facility] Chlorhexidine Gluconate (Hibiclens For Decolonization -) 1 applic TP HS [facility] Dextrose (D5w -) 1,000 mls @ 100 mls/hr IV ASDIR [facility] Last Admin: 06/14/18 12:30 Dose: 100 mls/hr Levetiracetam (Keppra Injection -) 500 mg IVPB BID [facility] Last Admin: 06/14/18 11:41 Dose: 500 mg Losartan Potassium (Cozaar -) 100 mg PO DAILY [facility] Last Admin: 06/14/18 12:34 Dose: 100 mg Metoprolol Succinate (Toprol Xl -) 25 mg PO DAILY [facility] Last Admin: 06/14/18 12:35 Dose: 25 mg Mupirocin (Bactroban Ointment (For Decolonization) -) 1 applic NS BID [facility] Stop: 06/19/18 21:59 ASSESSMENT AND PLAN: Altered Mental Status Acute Symptomatic Hyponatremia Seizure from above Lactic Acidosis Paroxysmal Atrial Fibrillation CAD HTN - IVF per renal, do not correct Na >0.5mEq/hr - monitor lytes - trend lactate - aspiration precautions - antiepileptics for now - rate/rhythm control - anticoagulation - ICU monitoring for now critical care time spent in reviewing chart, evaluating patient and formulating plan 35min
--- NOTE | 2018-06-14 13:55 | PN ---
Physical Exam: SUBJECTIVE: Patient seen and examined at bedside. Obtunded but arousable, minimal verbalizations, denied pain. OBJECTIVE: Vital Signs Period Temp Pulse Resp BP Sys/Castillo Pulse Ox Last 24 Hr 97.5 F-98.1 F 75-85 16-20 119-152/61-96 97-100 GENERAL: Obtunded, tremulous, holding tight in position. Arouses to verbal stimuli and gives directed, one-word answers to queries. HEAD: NC/AT EYES: PERRLA ENT: moist mucous membranes NECK: Trachea midline, full range of motion, supple LUNGS: CTA b/l, no accessory muscle use HEART: Irregularly irregular ABDOMEN: +bs, soft, NT, ND EXTREMITIES: 2+ pulses, warm, well-perfused, no edema. NEUROLOGIC: GCS: eyes 1, verbal 4, motor 6, total = 11 Laboratory Results - last 24 hr 06/14/18 06/14/18 06/14/18 03:15 03:15 03:15 WBC 9.9 RBC 4.08 Hgb 12.6 Hct 36.5 D MCV 89.5 MCH 30.9 MCHC 34.5 RDW 13.4 Plt Count 308 D MPV 8.4 D Absolute Neuts (auto) 6.7 Neutrophils % 67.9 D Lymphocytes % 26.7 Monocytes % 4.8 Eosinophils % 0.2 D Basophils % 0.4 Nucleated RBC % 0 PT with INR 11.00 INR 0.93 Anticoagulation Therapy Puncture Site ABG pH ABG pCO2 at Pt Temp ABG pO2 at Pt Temp ABG HCO3 ABG O2 Sat (Measured) ABG O2 Content ABG Base Excess Brandin Test VBG pH POC VBG pCO2 POC VBG pO2 Mixed VBG HCO3 Carboxyhemoglobin Methemoglobin O2 Delivery Device Oxygen Flow Rate Vent Mode Vent Rate Mechanical Rate PEEP Pressure Support Vent Sodium 122 L Potassium 3.2 L Chloride 86 L Carbon Dioxide 19 L Anion Gap 16 BUN 15 Creatinine 0.5 L Creat Clearance w eGFR > 60 Random Glucose 145 H Serum Osmolality Lactic Acid Calcium 8.5 Phosphorus Magnesium Total Bilirubin 1.2 H AST 19 ALT 25 Alkaline Phosphatase 82 Creatine Kinase 128 Troponin I 0.02 Total Protein 6.7 Albumin 3.6 Triglycerides 63 Cholesterol 160 Total LDL Cholesterol 73 HDL Cholesterol 79 H Urine Color Urine Appearance Urine pH Ur Specific [place] Urine Protein Urine Glucose (UA) Urine Ketones Urine Blood Urine Nitrite Urine Bilirubin Urine Urobilinogen Ur Leukocyte Esterase Urine WBC (Auto) Urine RBC (Auto) Urine Mucus Urine Osmolality Ur Random Sodium Ur Random Potassium Ur Random Chloride Urine Creatinine Salicylates Acetaminophen Alcohol, Quantitative Blood Type Antibody Screen 06/14/18 06/14/18 06/14/18 04:15 04:15 04:15 WBC RBC Hgb Hct MCV MCH MCHC RDW Plt Count MPV Absolute Neuts (auto) Neutrophils % Lymphocytes % Monocytes % Eosinophils % Basophils % Nucleated RBC % PT with INR INR Anticoagulation Therapy Puncture Site ABG pH ABG pCO2 at Pt Temp ABG pO2 at Pt Temp ABG HCO3 ABG O2 Sat (Measured) ABG O2 Content ABG Base Excess Brandin Test VBG pH 7.16 L* POC VBG pCO2 44.6 POC VBG pO2 64.5 H Mixed VBG HCO3 15.3 L Carboxyhemoglobin Methemoglobin O2 Delivery Device Oxygen Flow Rate Vent Mode Vent Rate Mechanical Rate PEEP Pressure Support Vent Sodium Potassium Chloride Carbon Dioxide Anion Gap BUN Creatinine Creat Clearance w eGFR Random Glucose Serum Osmolality Lactic Acid Calcium Phosphorus Magnesium Total Bilirubin AST ALT Alkaline Phosphatase Creatine Kinase Troponin I Total Protein Albumin Triglycerides Cholesterol Total LDL Cholesterol HDL Cholesterol Urine Color Urine Appearance Urine pH Ur Specific [place] Urine Protein Urine Glucose (UA) Urine Ketones Urine Blood Urine Nitrite Urine Bilirubin Urine Urobilinogen Ur Leukocyte Esterase Urine WBC (Auto) Urine RBC (Auto) Urine Mucus Urine Osmolality Ur Random Sodium Ur Random Potassium Ur Random Chloride Urine Creatinine Salicylates Acetaminophen < 2.0 L Alcohol, Quantitative < 3.0 Blood Type A POSITIVE Antibody Screen Negative 06/14/18 06/14/18 06/14/18 04:15 04:15 04:40 WBC RBC Hgb Hct MCV MCH MCHC RDW Plt Count MPV Absolute Neuts (auto) Neutrophils % Lymphocytes % Monocytes % Eosinophils % Basophils % Nucleated RBC % PT with INR INR Anticoagulation Therapy No Result Required. Puncture Site Left radial ABG pH 7.25 L ABG pCO2 at Pt Temp 49.8 H ABG pO2 at Pt Temp 96.3 ABG HCO3 21.2 L ABG O2 Sat (Measured) 95.7 ABG O2 Content 13.9 L ABG Base Excess -5.4 L Brandin Test Positive VBG pH POC VBG pCO2 POC VBG pO2 Mixed VBG HCO3 Carboxyhemoglobin 1.0 Methemoglobin 1.7 H O2 Delivery Device Nasal Oxygen Flow Rate 3l Vent Mode No Result Required. Vent Rate No Result Required. Mechanical Rate No Result Required. PEEP 0.0 Pressure Support Vent No Result Required. Sodium Potassium Chloride Carbon Dioxide Anion Gap BUN Creatinine Creat Clearance w eGFR Random Glucose Serum Osmolality Lactic Acid 9.1 H* Calcium Phosphorus Magnesium Total Bilirubin AST ALT Alkaline Phosphatase Creatine Kinase Troponin I Total Protein Albumin Triglycerides Cholesterol Total LDL Cholesterol HDL Cholesterol Urine Color Urine Appearance Urine pH Ur Specific [place] Urine Protein Urine Glucose (UA) Urine Ketones Urine Blood Urine Nitrite Urine Bilirubin Urine Urobilinogen Ur Leukocyte Esterase Urine WBC (Auto) Urine RBC (Auto) Urine Mucus Urine Osmolality Ur Random Sodium Ur Random Potassium Ur Random Chloride Urine Creatinine Salicylates < 1.7 L Acetaminophen Alcohol, Quantitative Blood Type Antibody Screen 06/14/18 06/14/18 06/14/18 05:59 08:07 09:36 WBC RBC Hgb Hct MCV MCH MCHC RDW Plt Count MPV Absolute Neuts (auto) Neutrophils % Lymphocytes % Monocytes % Eosinophils % Basophils % Nucleated RBC % PT with INR INR Anticoagulation Therapy Puncture Site ABG pH ABG pCO2 at Pt Temp ABG pO2 at Pt Temp ABG HCO3 ABG O2 Sat (Measured) ABG O2 Content ABG Base Excess Brandin Test VBG pH POC VBG pCO2 POC VBG pO2 Mixed VBG HCO3 Carboxyhemoglobin Methemoglobin O2 Delivery Device Oxygen Flow Rate Vent Mode Vent Rate Mechanical Rate PEEP Pressure Support Vent Sodium 124 L 127 L Potassium 3.6 4.0 Chloride 91 L 96 L Carbon Dioxide 24 18 L Anion Gap 9 12 BUN 14 12 Creatinine 0.6 0.4 L Creat Clearance w eGFR > 60 > 60 Random Glucose 129 H 122 H Serum Osmolality 250 L Lactic Acid Calcium 7.5 L 7.6 L Phosphorus 3.3 Magnesium 1.9 Total Bilirubin 0.8 AST 23 ALT 23 Alkaline Phosphatase 70 Creatine Kinase Troponin I Total Protein 5.7 L Albumin 3.0 L Triglycerides Cholesterol Total LDL Cholesterol HDL Cholesterol Urine Color Straw Urine Appearance Clear Urine pH 6.0 Ur Specific [place] 1.008 Urine Protein Negative Urine Glucose (UA) 1+ H Urine Ketones 1+ H Urine Blood 2+ H Urine Nitrite Negative Urine Bilirubin Negative Urine Urobilinogen Negative Ur Leukocyte Esterase Negative Urine WBC (Auto) 1 Urine RBC (Auto) 7 Urine Mucus Rare Urine Osmolality Ur Random Sodium Ur Random Potassium Ur Random Chloride Urine Creatinine Salicylates Acetaminophen Alcohol, Quantitative Blood Type Antibody Screen 06/14/18 06/14/18 06/14/18 09:36 09:36 12:24 WBC RBC Hgb Hct MCV MCH MCHC RDW Plt Count MPV Absolute Neuts (auto) Neutrophils % Lymphocytes % Monocytes % Eosinophils % Basophils % Nucleated RBC % PT with INR INR Anticoagulation Therapy No Result Required. Puncture Site Right radial ABG pH 7.41 D ABG pCO2 at Pt Temp 33.8 L D ABG pO2 at Pt Temp 114.0 H ABG HCO3 21.0 L ABG O2 Sat (Measured) 98.6 ABG O2 Content 14.6 L ABG Base Excess -2.5 L Brandin Test Positive VBG pH POC VBG pCO2 POC VBG pO2 Mixed VBG HCO3 Carboxyhemoglobin Methemoglobin O2 Delivery Device Nasal Oxygen Flow Rate 3 Vent Mode No Result Required. Vent Rate No Result Required. Mechanical Rate No Result Required. PEEP Pressure Support Vent No Result Required. Sodium Potassium Chloride Carbon Dioxide Anion Gap BUN Creatinine Creat Clearance w eGFR Random Glucose Serum Osmolality Lactic Acid Calcium Phosphorus Magnesium Total Bilirubin AST ALT Alkaline Phosphatase Creatine Kinase Troponin I Total Protein Albumin Triglycerides Cholesterol Total LDL Cholesterol HDL Cholesterol Urine Color Urine Appearance Urine pH Ur Specific [place] Urine Protein Urine Glucose (UA) Urine Ketones Urine Blood Urine Nitrite Urine Bilirubin Urine Urobilinogen Ur Leukocyte Esterase Urine WBC (Auto) Urine RBC (Auto) Urine Mucus Urine Osmolality 348 Ur Random Sodium 98 Ur Random Potassium 28.0 Ur Random Chloride 114 Urine Creatinine < 13.0 L Salicylates Acetaminophen Alcohol, Quantitative Blood Type Antibody Screen Active Medications Generic Name Dose Route Start Last Admin Trade Name Freq PRN Reason Stop Dose Admin Amlodipine Besylate 10 mg 06/14/18 10:00 06/14/18 12:35 Norvasc - PO 10 mg DAILY [facility] Administration Apixaban 5 mg 06/14/18 13:15 Eliquis - PO BID [facility] Chlorhexidine Gluconate 1 applic 06/14/18 22:00 Hibiclens For Decolonization - TP HS [facility] Dextrose 1,000 mls @ 100 mls/hr 06/14/18 12:36 06/14/18 12:30 D5w - IV 100 mls/hr ASDIR [facility] Administration Levetiracetam 500 mg 06/14/18 10:00 06/14/18 11:41 Keppra Injection - IVPB 500 mg BID [facility] Administration Losartan Potassium 100 mg 06/14/18 10:00 06/14/18 12:34 Cozaar - PO 100 mg DAILY [facility] Administration Metoprolol Succinate 25 mg 06/14/18 10:00 06/14/18 12:35 Toprol Xl - PO 25 mg DAILY [facility] Administration Mupirocin 1 applic 06/14/18 22:00 Bactroban Ointment (For Decolonization) - NS 06/19/18 21:59 BID [facility] ASSESSMENT/PLAN: 83 y/o F w/ PMHx HTN, anxiety, non-obstructive CAD, developed AMS and seizures 2 /2 colonoscopy bowel prep, brought to ED, found to be hyponatremic to 122 and in AFib w/ RVR. Admitted to ICU for correction and close observation. #hyponatremia -reported GCS overnight of 6, improved to 11 in AM -received 100ccs 3% saline x2 overnight, Na corrected from 122 @ 3:15 am to 127 @8:07 am (~1 meq/L/hr) -additionally received 1 dose desmopressin, started on Keppra -cardiology, neurology, nephrology consulted -fluids switched to D5W @ 100, repeat BMPs q3h per nephrology -Na 128 @ 12:24 -cont Keppra BID x 3 days or pending correction per neurology #Afib -[id number]=3 -Eliquis 5 BID #HTN -Norvasc 10 qd, losartan 100qd, Toprol XL 25 bid #FEN -D5W@100 -BMPs q3H -NPO #PPx -DVT: Eliquis -GI: not indicated #Dispo -ICU Visit type - Emergency Visit Emergency Visit: Yes ED Registration Date: 06/14/18 Care time: The patient presented to the Emergency Department on the above date and was hospitalized for further evaluation of their emergent condition. - New Patient This patient is new to me today: Yes Date on this admission: 06/14/18 - Critical Care Critical Care patient: Yes Total Critical Care Time (in minutes): 40 Critical Care Statement: The care of this patient involved high complexity decision making to prevent further life threatening deterioration of the patient 's condition and/or to evaluate & treat vital organ system(s) failure or risk of failure.
[2018-06-14 16:46] LABS: ANION GAP 8 MMOL/L (8-16); BLOOD UREA NITROGEN 8 mg/dL (7-18); CALCIUM 8.1 mg/dL (8.5-10.1); CHLORIDE 95 mmol/L (98-107); CO2 21 mmol/L (21-32); CREATININE 0.4 mg/dL (0.55-1.3); GLUCOSE,RANDOM 114 mg/dL (74-106); POTASSIUM 3.7 mmol/L (3.5-5.1); SODIUM 125 mmol/L (136-145)
--- NOTE | 2018-06-14 16:58 | PN ---
Progress Note (short form) - Note Progress Note: Laboratory Tests 06/14/18 16:10 Sodium 125 L - can stop d5w - cont to monitor sodium Problem List - Problems (1) Acute hyponatremia Code(s): E87.1 - HYPO-OSMOLALITY AND HYPONATREMIA (2) Altered mental status Code(s): R41.82 - ALTERED MENTAL STATUS, UNSPECIFIED (3) Dehydration Code(s): E86.0 - DEHYDRATION (4) Hyperlipidemia Code(s): E78.5 - HYPERLIPIDEMIA, UNSPECIFIED (5) HTN (hypertension) Code(s): I10 - ESSENTIAL (PRIMARY) HYPERTENSION
[2018-06-14] MEDS ORDERED: KCL 10 MEQ IVPB 20 MEQ/200 ML INFUS.BAG IVPB ONE (19:27)
[2018-06-14 21:39] LABS: ANION GAP 12 MMOL/L (8-16); BLOOD UREA NITROGEN 8 mg/dL (7-18); CALCIUM 7.8 mg/dL (8.5-10.1); CHLORIDE 94 mmol/L (98-107); CO2 21 mmol/L (21-32); CREATININE 0.4 mg/dL (0.55-1.3); GLUCOSE,RANDOM 82 mg/dL (74-106); POTASSIUM 3.9 mmol/L (3.5-5.1); SODIUM 127 mmol/L (136-145)
[2018-06-14] MEDS: SODIUM CHLORIDE 1,000 ML IV SCH (22:23)
[2018-06-14] MEDS: MUPIROCIN 2% TOPICAL OINTMENT FOR DECOLONIZATION NS SCH (22:23)
[2018-06-14] MEDS: CHLORHEXIDINE GLUCONATE 4% CLEANSER FOR DECOLONIZATION TP SCH (22:23)
[2018-06-14] MEDS: APIXABAN 2.5 MG TABLET PO SCH (22:23)
--- NOTE | 2018-06-14 22:27 | PN ---
Progress Note (short form) - Note Progress Note: Patient received in ICU. mental status unchanged from initial encounter this morning, when Na was 122. patient received 100cc 3% saline over 10 min by ER doctor, sodium improved only by 2 and mental statum remained GCS6. was then given 100cc 3% saline over 10 min by ICU resident for goal correction of 4-6. 1 mcg desmopressin was also given prophylactically to prevent rapid overcorrection , which was a possibility since patients hyponatremia was acutely caused by bowel prep. Detailed plan and medication instructions were verbally communicated with ER nursing staff. For further details, please refer to consult note. Despite prophylactic desmopressin patient corrected rapidly and was treated with D5w. In the evening Na is 127 and patient is started on NS @ 75, as recommended by nephrology. Literature references: Augustine SNIDER et al: The treatment of hyponatremia. Semin Nephrol. 2009;29(3): 282. Robert GONZALEZ et al: Management of hyponatremic seizures in children with hypertonic saline: a safe and effective strategy. [place]. [place] Care Med. 1991;19(6):758. "Treatment of hyponatremic seizures with routine anticonvulsants may be ineffective and is associated with a considerable incidence of apnea. A rapid increase in the serum sodium concentration by 3 to 5 mmol/L with the use of hypertonic saline is safe and efficacious in managing acute symptomatic hyponatremia." Kaushik Juan et al: Use of desmopressin acetate in severe hyponatremia in the intensive care unit. Clin J Am Soc Nephrol. 2013;9(2):229-37. Epub 2012Aug 02. "Desmopressin acetate is effective in curbing the rise of PNa in patients admitted in the intensive care unit for severe hyponatremia, when the initial rate of correction is excessive" Problem List - Problems (1) Hyperlipidemia Code(s): E78.5 - HYPERLIPIDEMIA, UNSPECIFIED Qualifiers: Hyperlipidemia type: pure hypercholesterolemia Qualified Code(s): E78.00 - Pure hypercholesterolemia, unspecified; E78.0 - Pure hypercholesterolemia (2) Altered mental status Code(s): R41.82 - ALTERED MENTAL STATUS, UNSPECIFIED Qualifiers: Altered mental status type: disorientation Qualified Code(s): R41.0 - Disorientation, unspecified (3) Atrial fibrillation with RVR Code(s): I48.91 - UNSPECIFIED ATRIAL FIBRILLATION (4) Acute hyponatremia Code(s): E87.1 - HYPO-OSMOLALITY AND HYPONATREMIA (5) Seizure Code(s): R56.9 - UNSPECIFIED CONVULSIONS (6) HTN (hypertension) Code(s): I10 - ESSENTIAL (PRIMARY) HYPERTENSION Qualifiers: Hypertension type: essential hypertension Qualified Code(s): I10 - Essential (primary) hypertension (7) Cerebral hyponatremia Code(s): E87.1 - HYPO-OSMOLALITY AND HYPONATREMIA (8) Hyponatremia with normal extracellular fluid volume Code(s): E87.1 - HYPO-OSMOLALITY AND HYPONATREMIA
[2018-06-14 22:57] LABS: ANION GAP 7 MMOL/L (8-16); BLOOD UREA NITROGEN 7 mg/dL (7-18); CALCIUM 8.2 mg/dL (8.5-10.1); CHLORIDE 95 mmol/L (98-107); CO2 22 mmol/L (21-32); CREATININE 0.4 mg/dL (0.55-1.3); GLUCOSE,RANDOM 89 mg/dL (74-106); POTASSIUM 3.9 mmol/L (3.5-5.1); SODIUM 125 mmol/L (136-145)
[2018-06-15] MEDS: KCL 10 MEQ IVPB 10 MEQ/100 ML INFUS.BAG IVPB SCH ×4 (00:26→10:19)
[2018-06-15 06:40] LABS: BASO % 0.1 % (0-2.0); EOS % 0.1 % (0-4.5); HEMATOCRIT 30.3 % (32.4-45.2); HEMOGLOBIN 10.3 GM/dL (10.7-15.3); LYMPH % 18.6 % (8-40); MCH 30.6 pg (25.7-33.7); MCHC 34.2 g/dl (32.0-36.0); MEAN CELL VOLUME 89.6 fl (80-96); MEAN PLT VOLUME 8.3 fl (7.5-11.1); MONO % 7.2 % (3.8-10.2); PLATELET COUNT 218 K/MM3 (134-434); RBC 3.38 M/mm3 (3.60-5.2); RDW 13.4 % (11.6-15.6); WHITE BLOOD COUNT 10.6 K/mm3 (4.0-10.0)
[2018-06-15 07:02] LABS: MAGNESIUM 1.6 mg/dL (1.8-2.4); PHOSPHOROUS 2.3 mg/dL (2.5-4.9)
[2018-06-15 07:03] LABS: ANION GAP 8 MMOL/L (8-16); BLOOD UREA NITROGEN 6 mg/dL (7-18); CALCIUM 7.6 mg/dL (8.5-10.1); CHLORIDE 96 mmol/L (98-107); CO2 23 mmol/L (21-32); CREATININE 0.3 mg/dL (0.55-1.3); GLUCOSE,RANDOM 72 mg/dL (74-106); POTASSIUM 3.9 mmol/L (3.5-5.1); SODIUM 127 mmol/L (136-145)
[2018-06-15] MEDS ORDERED: MAGNESIUM SULF 50% (8.12 MEQ/2 ML-1 GM VIAL) IVPB ONE (07:21)
--- NOTE | 2018-06-15 09:19 | PN ---
Progress Note, Physician Chief Complaint: Patient never had a low sodium and her baseline Na value on April 2018 was 137. I examined and interviewed the patient. She is alert and oriented but forgetful for her baseline, not in any acute distress.In sinus rhythm since yesterday History of Present Illness: 83 yo female who was admitted for weakness and confusion after she underwent her bowel prep for colonoscopy. She is independent and efficient, living alone. - Current Medication List Current Medications: Active Medications Amlodipine Besylate (Norvasc -) 10 mg PO DAILY [facility] Last Admin: 06/14/18 12:35 Dose: 10 mg Apixaban (Eliquis -) 2.5 mg PO BID [facility] Last Admin: 06/14/18 22:23 Dose: 2.5 mg Chlorhexidine Gluconate (Hibiclens For Decolonization -) 1 applic TP HS [facility] Last Admin: 06/14/18 22:23 Dose: 1 applic Sodium Chloride (Normal Saline -) 1,000 mls @ 75 mls/hr IV ASDIR [facility] Last Admin: 06/14/18 22:23 Dose: 75 mls/hr Potassium Chloride (Potassium Chloride 10 Meq Premix Ivpb -) 10 meq in 100 mls @ 100 mls/hr IVPB Q60M [facility] Stop: 06/15/18 10:29 Last Admin: 06/15/18 08:03 Dose: 100 mls/hr Levetiracetam (Keppra Injection -) 500 mg IVPB BID [facility] Last Admin: 06/14/18 22:23 Dose: 500 mg Losartan Potassium (Cozaar -) 100 mg PO DAILY [facility] Last Admin: 06/14/18 12:34 Dose: 100 mg Metoprolol Succinate (Toprol Xl -) 25 mg PO DAILY [facility] Last Admin: 06/14/18 12:35 Dose: 25 mg Mupirocin (Bactroban Ointment (For Decolonization) -) 1 applic NS BID [facility] Stop: 06/19/18 21:59 Last Admin: 06/14/18 22:23 Dose: 1 applic Ranitidine HCl (Zantac -) 150 mg PO DAILY [facility] - Objective Vital Signs: Vital Signs Temperature 98.8 F 06/15/18 06:00 Pulse Rate 60 06/15/18 08:00 Respiratory Rate 18 06/15/18 08:00 Blood Pressure 149/45 L 06/15/18 08:00 O2 Sat by Pulse Oximetry (%) 100 06/14/18 23:36 Constitutional: Yes: No Distress, Calm Eyes: Yes: Conjunctiva Clear, EOM Intact HENT: Yes: Atraumatic, Normocephalic Neck: Yes: Supple, Trachea Midline Cardiovascular: Yes: Regular Rate and Rhythm, S1, S2 Respiratory: Yes: Regular, CTA Bilaterally. No: Wheezes Gastrointestinal: Yes: Normal Bowel Sounds, Soft, Abdomen, Obese. No: Hepatomegaly, Splenomegaly Extremities: No: Calf Tenderness Edema: No Peripheral Pulses WNL: Yes Neurological: Yes: Alert, Oriented, Other (good gag reflex) ...Motor Strength: WNL Psychiatric: Yes: Alert, Oriented Labs: CBC, BMP 06/15/18 05:30 06/15/18 05:30 INR, PTT INR 0.93 (0.83-1.09) 06/14/18 03:15 Problem List - Problems (1) Acute hyponatremia Assessment/Plan: NA at 8 am 127 Mg and Ca being corrected Code(s): E87.1 - HYPO-OSMOLALITY AND HYPONATREMIA (2) Atrial fibrillation with RVR Assessment/Plan: continue Toprol XL 25 mg daily currently HR is controlled repeat EKG and ECHO this am Code(s): I48.91 - UNSPECIFIED ATRIAL FIBRILLATION (3) Altered mental status Assessment/Plan: resolving, NA is still low Code(s): R41.82 - ALTERED MENTAL STATUS, UNSPECIFIED Qualifiers: Altered mental status type: disorientation Qualified Code(s): R41.0 - Disorientation, unspecified (4) CAD (coronary artery disease) Assessment/Plan: in NSR , was started on Eliquis correct lytes Code(s): I25.10 - ATHSCL HEART DISEASE OF [place] CORONARY ARTERY W/O ANG PCTRS Qualifiers: Coronary Disease-Associated Artery/Lesion type: [place] artery [place] vs. transplanted heart: [place] heart Associated angina: without angina Qualified Code(s): I25.10 - Atherosclerotic heart disease of [place] coronary artery without angina pectoris (5) Hypocalcemia Assessment/Plan: calcium gluconate being given Code(s): E83.51 - HYPOCALCEMIA (6) Hypomagnesemia Assessment/Plan: being corrected Code(s): E83.42 - HYPOMAGNESEMIA (7) Seizure Assessment/Plan: on Keppra, episode no repeated, the patient has good gag reflex an can restart diet Code(s): R56.9 - UNSPECIFIED CONVULSIONS
[2018-06-15] MEDS: MUPIROCIN 2% TOPICAL OINTMENT FOR DECOLONIZATION NS SCH ×2 (10:19→21:14)
[2018-06-15] MEDS: levETIRAcetam 500 MG/5 ML INJECTION VIAL IVPB SCH ×2 (10:20→21:14)
[2018-06-15] MEDS: APIXABAN 2.5 MG TABLET PO SCH ×2 (10:20→21:14)
[2018-06-15] MEDS: RANITIDINE HCL 150 MG TABLET (FP) PO SCH (10:20)
[2018-06-15] MEDS: amLODIPine BESYLATE 10 MG TABLET (FP) PO SCH (10:20)
[2018-06-15] MEDS: LOSARTAN POTASSIUM 50 MG TABLET (FP) PO SCH (10:21)
[2018-06-15] MEDS: metoPROLOL SUCCINATE 25 MG TAB.SR.24H (FP) PO SCH (10:21)
[2018-06-15 10:33] LABS: ANION GAP 8 MMOL/L (8-16); BLOOD UREA NITROGEN 5 mg/dL (7-18); CHLORIDE 96 mmol/L (98-107); CO2 21 mmol/L (21-32); CREATININE 0.3 mg/dL (0.55-1.3); GLUCOSE,RANDOM 68 mg/dL (74-106); POTASSIUM 3.7 mmol/L (3.5-5.1); SODIUM 125 mmol/L (136-145)
--- NOTE | 2018-06-15 10:37 | PN ---
Progress Note, Physician History of Present Illness: Mental status improved, no further episodes of PAF. - Current Medication List Current Medications: Active Medications Amlodipine Besylate (Norvasc -) 10 mg PO DAILY [facility] Last Admin: 06/15/18 10:20 Dose: 10 mg Apixaban (Eliquis -) 2.5 mg PO BID [facility] Last Admin: 06/15/18 10:20 Dose: 2.5 mg Chlorhexidine Gluconate (Hibiclens For Decolonization -) 1 applic TP HS [facility] Last Admin: 06/14/18 22:23 Dose: 1 applic Sodium Chloride (Normal Saline -) 1,000 mls @ 75 mls/hr IV ASDIR [facility] Last Admin: 06/14/18 22:23 Dose: 75 mls/hr Levetiracetam (Keppra Injection -) 500 mg IVPB BID [facility] Last Admin: 06/15/18 10:20 Dose: 500 mg Losartan Potassium (Cozaar -) 100 mg PO DAILY [facility] Last Admin: 06/15/18 10:21 Dose: 100 mg Metoprolol Succinate (Toprol Xl -) 25 mg PO DAILY [facility] Last Admin: 06/15/18 10:21 Dose: 25 mg Mupirocin (Bactroban Ointment (For Decolonization) -) 1 applic NS BID [facility] Stop: 06/19/18 21:59 Last Admin: 06/15/18 10:19 Dose: 1 applic Potassium Phos/Sodium Phos (Phos-Nak Packet -) 1 packet PO ONCE ONE Stop: 06/15/18 10:41 Ranitidine HCl (Zantac -) 150 mg PO DAILY [facility] Last Admin: 06/15/18 10:20 Dose: 150 mg - Objective Vital Signs: Vital Signs Temperature 98.0 F 06/15/18 10:00 Pulse Rate 66 06/15/18 10:00 Respiratory Rate 18 06/15/18 10:00 Blood Pressure 126/57 L 06/15/18 10:00 O2 Sat by Pulse Oximetry (%) 100 06/14/18 23:36 Constitutional: Yes: No Distress, Calm, Thin Neck: Yes: Supple Cardiovascular: Yes: Regular Rate and Rhythm Respiratory: Yes: Regular, Diminished, On Nasal O2 Gastrointestinal: Yes: Normal Bowel Sounds, Soft Edema: No Labs: CBC, BMP 06/15/18 05:30 06/15/18 09:35 INR, PTT INR 0.93 (0.83-1.09) 06/14/18 03:15 - ....Imaging EKG: Report Reviewed (Tele: SR [facility] PAC) Problem List - Problems (1) Acute hyponatremia Code(s): E87.1 - HYPO-OSMOLALITY AND HYPONATREMIA (2) Altered mental status Code(s): R41.82 - ALTERED MENTAL STATUS, UNSPECIFIED Qualifiers: Altered mental status type: disorientation Qualified Code(s): R41.0 - Disorientation, unspecified (3) Atrial fibrillation with RVR Code(s): I48.91 - UNSPECIFIED ATRIAL FIBRILLATION (4) Cerebral hyponatremia Code(s): E87.1 - HYPO-OSMOLALITY AND HYPONATREMIA (5) Seizure Code(s): R56.9 - UNSPECIFIED CONVULSIONS (6) CAD (coronary artery disease) Code(s): I25.10 - ATHSCL HEART DISEASE OF [place] CORONARY ARTERY W/O ANG PCTRS Qualifiers: Coronary Disease-Associated Artery/Lesion type: [place] artery [place] vs. transplanted heart: [place] heart Associated angina: without angina Qualified Code(s): I25.10 - Atherosclerotic heart disease of [place] coronary artery without angina pectoris (7) HTN (hypertension) Code(s): I10 - ESSENTIAL (PRIMARY) HYPERTENSION Qualifiers: Hypertension type: essential hypertension Qualified Code(s): I10 - Essential (primary) hypertension Assessment/Plan Echo: 04/21/2018 Normal LV and RV size and fxn, impaied LV relaxation, mod TR, mild MR 1. Toxic metabolic encephelopathy and seizure referable to acute symptomatic hyponatremia improving 2. Paroxysmal afib with RVR [id number] 3. 1 vessel CAD, angina pectoris 4. HTN/HCVD 5. LBBB P:1. Correcting hypnatremia, seizure prophylaxis short-term, telemetry monitoring to assess arrhythmia burden 2. Continue Norvasc 10 qd, losartan 100qd, Toprol XL 25 qd, Eliquis 2.5 bid (age >80, wt<60 kg) given elevated risk score
[2018-06-15] MEDS ORDERED: NAPH,MB-DB/K PH,MBDB POWDER PACKET PO ONE ×2 (10:40→14:34)
[2018-06-15] MEDS ORDERED: SODIUM CHLORIDE 1 GM TABLET PO ONE (11:08)
--- NOTE | 2018-06-15 12:23 | PN ---
Teaching Attending Note Name of Resident: Richard Phillips ATTENDING PHYSICIAN STATEMENT I saw and evaluated the patient. I reviewed the resident's note and discussed the case with the resident. I agree with the resident's findings and plan as documented. SUBJECTIVE: Pt seen and examined in the ICU. Mental status much improved, feels close to baseline. No further seizure episodes or atrial fibrillation. Sodium improving. OBJECTIVE: Vital Signs Period Temp Pulse Resp BP Sys/Castillo Pulse Ox Last 24 Hr 98 F-98.8 F 60-82 11-18 126-149/45-98 100-100 Intake & Output 06/12/18 06/13/18 06/14/18 06/15/18 23:59 23:59 23:59 23:59 Intake Total 584 525 Output Total 240 400 Balance 344 125 Weight 49.895 kg Gen: NAD at rest Heart: RRR Lung: decreased breath sounds at the bases Abd: soft, nontender Ext: no edema CBC, BMP 06/15/18 05:30 06/15/18 09:35 Active Medications Amlodipine Besylate (Norvasc -) 10 mg PO DAILY [facility] Last Admin: 06/15/18 10:20 Dose: 10 mg Apixaban (Eliquis -) 2.5 mg PO BID [facility] Last Admin: 06/15/18 10:20 Dose: 2.5 mg Chlorhexidine Gluconate (Hibiclens For Decolonization -) 1 applic TP HS [facility] Last Admin: 06/14/18 22:23 Dose: 1 applic Sodium Chloride (Normal Saline -) 1,000 mls @ 75 mls/hr IV ASDIR [facility] Last Admin: 06/14/18 22:23 Dose: 75 mls/hr Levetiracetam (Keppra Injection -) 500 mg IVPB BID [facility] Last Admin: 06/15/18 10:20 Dose: 500 mg Losartan Potassium (Cozaar -) 100 mg PO DAILY [facility] Last Admin: 06/15/18 10:21 Dose: 100 mg Metoprolol Succinate (Toprol Xl -) 25 mg PO DAILY [facility] Last Admin: 06/15/18 10:21 Dose: 25 mg Mupirocin (Bactroban Ointment (For Decolonization) -) 1 applic NS BID [facility] Stop: 06/19/18 21:59 Last Admin: 06/15/18 10:19 Dose: 1 applic Ranitidine HCl (Zantac -) 150 mg PO DAILY [facility] Last Admin: 06/15/18 10:20 Dose: 150 mg ASSESSMENT AND PLAN: Altered Mental Status improving Acute Symptomatic Hyponatremia Seizure from above Lactic Acidosis Paroxysmal Atrial Fibrillation CAD HTN - IVF per renal, do not correct Na >0.5mEq/hr - monitor lytes - trend lactate - aspiration precautions - antiepileptics for now - rate/rhythm control - continue anticoagulation - can monitor on floor
--- NOTE | 2018-06-15 12:28 | PN ---
Physical Exam: SUBJECTIVE: Patient seen and examined at bedside. Mental status and overall function dramatically improved. Patient now fully conversant. Lying comfortably in bed. OBJECTIVE: Vital Signs Period Temp Pulse Resp BP Sys/Castillo Pulse Ox Last 24 Hr 98 F-98.8 F 60-82 11-18 126-149/45-98 100-100 GENERAL: A&Ox3, voice tremulous, otherwise no distress HEAD: NC/AT EYES: PERRLA, EOMI ENT: moist mucous membranes NECK: Trachea midline, full range of motion, supple LUNGS: CTA b/l, no accessory muscle use HEART: S1S2 no m/r/g ABDOMEN: +bs, soft, NT, ND EXTREMITIES: 2+ pulses, warm, well-perfused, no edema. 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 PSYCHIATRIC: appropriate tone, eye contact Laboratory Results - last 24 hr 06/14/18 06/14/18 06/14/18 12:24 12:24 16:10 WBC RBC Hgb Hct MCV MCH MCHC RDW Plt Count MPV Absolute Neuts (auto) Neutrophils % Lymphocytes % Monocytes % Eosinophils % Basophils % Nucleated RBC % Anticoagulation Therapy No Result Required. Puncture Site Right radial ABG pH 7.41 D ABG pCO2 at Pt Temp 33.8 L D ABG pO2 at Pt Temp 114.0 H ABG HCO3 21.0 L ABG O2 Sat (Measured) 98.6 ABG O2 Content 14.6 L ABG Base Excess -2.5 L Brandin Test Positive O2 Delivery Device Nasal Oxygen Flow Rate 3 Vent Mode No Result Required. Vent Rate No Result Required. Mechanical Rate No Result Required. Pressure Support Vent No Result Required. Sodium 128 L Potassium 3.6 Chloride 95 L Carbon Dioxide 22 Anion Gap 10 BUN 11 Creatinine 0.4 L Creat Clearance w eGFR > 60 Random Glucose 87 Lactic Acid 1.2 Calcium 7.9 L Phosphorus Magnesium Total Bilirubin 0.7 AST 27 ALT 23 Alkaline Phosphatase 64 Creatine Kinase Creatine Kinase Index CK-MB (CK-2) Troponin I Total Protein 5.7 L Albumin 2.9 L TSH 06/14/18 06/14/18 06/14/18 16:10 19:12 22:00 WBC RBC Hgb Hct MCV MCH MCHC RDW Plt Count MPV Absolute Neuts (auto) Neutrophils % Lymphocytes % Monocytes % Eosinophils % Basophils % Nucleated RBC % Anticoagulation Therapy Puncture Site ABG pH ABG pCO2 at Pt Temp ABG pO2 at Pt Temp ABG HCO3 ABG O2 Sat (Measured) ABG O2 Content ABG Base Excess Brandin Test O2 Delivery Device Oxygen Flow Rate Vent Mode Vent Rate Mechanical Rate Pressure Support Vent Sodium 125 L 127 L 125 L Potassium 3.7 3.9 3.9 Chloride 95 L 94 L 95 L Carbon Dioxide 21 21 22 Anion Gap 8 12 7 L BUN 8 8 7 Creatinine 0.4 L 0.4 L 0.4 L Creat Clearance w eGFR > 60 > 60 > 60 Random Glucose 114 H 82 89 Lactic Acid Calcium 8.1 L 7.8 L 8.2 L Phosphorus Magnesium Total Bilirubin AST ALT Alkaline Phosphatase Creatine Kinase Creatine Kinase Index CK-MB (CK-2) Troponin I Total Protein Albumin TSH 1.42 06/14/18 06/15/18 06/15/18 22:00 01:30 05:30 WBC 10.6 H RBC 3.38 L Hgb 10.3 L Hct 30.3 L D MCV 89.6 MCH 30.6 MCHC 34.2 RDW 13.4 Plt Count 218 D MPV 8.3 Absolute Neuts (auto) 7.8 Neutrophils % 74.0 Lymphocytes % 18.6 D Monocytes % 7.2 Eosinophils % 0.1 Basophils % 0.1 Nucleated RBC % 0 Anticoagulation Therapy Puncture Site ABG pH ABG pCO2 at Pt Temp ABG pO2 at Pt Temp ABG HCO3 ABG O2 Sat (Measured) ABG O2 Content ABG Base Excess Brandin Test O2 Delivery Device Oxygen Flow Rate Vent Mode Vent Rate Mechanical Rate Pressure Support Vent Sodium Cancelled Cancelled Potassium Cancelled Cancelled Chloride Cancelled Cancelled Carbon Dioxide Cancelled Cancelled Anion Gap Cancelled Cancelled BUN Cancelled Cancelled Creatinine Cancelled Cancelled Creat Clearance w eGFR Cancelled Cancelled Random Glucose Cancelled Cancelled Lactic Acid Calcium Cancelled Cancelled Phosphorus Magnesium Total Bilirubin AST ALT Alkaline Phosphatase Creatine Kinase Creatine Kinase Index CK-MB (CK-2) Troponin I Total Protein Albumin TSH 06/15/18 06/15/18 06/15/18 05:30 05:30 05:30 WBC RBC Hgb Hct MCV MCH MCHC RDW Plt Count MPV Absolute Neuts (auto) Neutrophils % Lymphocytes % Monocytes % Eosinophils % Basophils % Nucleated RBC % Anticoagulation Therapy Puncture Site ABG pH ABG pCO2 at Pt Temp ABG pO2 at Pt Temp ABG HCO3 ABG O2 Sat (Measured) ABG O2 Content ABG Base Excess Brandin Test O2 Delivery Device Oxygen Flow Rate Vent Mode Vent Rate Mechanical Rate Pressure Support Vent Sodium 127 L Potassium 3.9 Chloride 96 L Carbon Dioxide 23 Anion Gap 8 BUN 6 L Creatinine 0.3 L Creat Clearance w eGFR > 60 Random Glucose 72 L Lactic Acid Calcium 7.6 L Phosphorus 2.3 L Magnesium 1.6 L Total Bilirubin AST ALT Alkaline Phosphatase Creatine Kinase 312 H Creatine Kinase Index 3.5 CK-MB (CK-2) 11.1 H Troponin I < 0.02 Total Protein Albumin TSH 06/15/18 09:35 WBC RBC Hgb Hct MCV MCH MCHC RDW Plt Count MPV Absolute Neuts (auto) Neutrophils % Lymphocytes % Monocytes % Eosinophils % Basophils % Nucleated RBC % Anticoagulation Therapy Puncture Site ABG pH ABG pCO2 at Pt Temp ABG pO2 at Pt Temp ABG HCO3 ABG O2 Sat (Measured) ABG O2 Content ABG Base Excess Brandin Test O2 Delivery Device Oxygen Flow Rate Vent Mode Vent Rate Mechanical Rate Pressure Support Vent Sodium 125 L Potassium 3.7 Chloride 96 L Carbon Dioxide 21 Anion Gap 8 BUN 5 L Creatinine 0.3 L Creat Clearance w eGFR > 60 Random Glucose 68 L Lactic Acid Calcium 8.0 L Phosphorus Magnesium Total Bilirubin AST ALT Alkaline Phosphatase Creatine Kinase Creatine Kinase Index CK-MB (CK-2) Troponin I Total Protein Albumin TSH Active Medications Generic Name Dose Route Start Last Admin Trade Name Freq PRN Reason Stop Dose Admin Amlodipine Besylate 10 mg 06/14/18 10:00 06/15/18 10:20 Norvasc - PO 10 mg DAILY [facility] Administration Apixaban 2.5 mg 06/14/18 22:00 06/15/18 10:20 Eliquis - PO 2.5 mg BID [facility] Administration Chlorhexidine Gluconate 1 applic 06/14/18 22:00 06/14/18 22:23 Hibiclens For Decolonization - TP 1 applic HS [facility] Administration Sodium Chloride 1,000 mls @ 75 mls/hr 06/14/18 21:45 06/14/18 22:23 Normal Saline - IV 75 mls/hr ASDIR [facility] Administration Levetiracetam 500 mg 06/14/18 10:00 06/15/18 10:20 Keppra Injection - IVPB 500 mg BID [facility] Administration Losartan Potassium 100 mg 06/14/18 10:00 06/15/18 10:21 Cozaar - PO 100 mg DAILY [facility] Administration Metoprolol Succinate 25 mg 06/14/18 10:00 06/15/18 10:21 Toprol Xl - PO 25 mg DAILY [facility] Administration Mupirocin 1 applic 06/14/18 22:00 06/15/18 10:19 Bactroban Ointment (For Decolonization) - NS 06/19/18 21:59 1 applic BID [facility] Administration Ranitidine HCl 150 mg 06/15/18 10:00 06/15/18 10:20 Zantac - PO 150 mg DAILY [facility] Administration ASSESSMENT/PLAN: 83 y/o F w/ PMHx HTN, anxiety, non-obstructive CAD, developed AMS and seizures 2 /2 colonoscopy bowel prep, brought to ED, found to be hyponatremic to 122 and in AFib w/ RVR. Admitted to ICU for correction and close observation. #hyponatremia -AMS resolved -AM Na 127@ 5:30, 125 @ 9 -free water restriction to 800cc -1g NaCl tablet -NS @ 75 -repeat urine sodium & osm -cont Keppra BID x 2 days or pending correction per neurology -repleted Mg, K, Phos -elevated CK, likely 2/2 seizure, repeat in AM #Afib -[id number] -cont Eliquis #HTN -Norvasc 10 qd, losartan 100qd, Toprol XL 25 bid #FEN -NS@75 -BMPs q3H -soft regular diet #PPx -DVT: Eliquis -GI: not indicated #Dispo -ICU Visit type - Emergency Visit Emergency Visit: No - New Patient This patient is new to me today: No - Critical Care Critical Care patient: Yes Total Critical Care Time (in minutes): 40 Critical Care Statement: The care of this patient involved high complexity decision making to prevent further life threatening deterioration of the patient 's condition and/or to evaluate & treat vital organ system(s) failure or risk of failure.
[2018-06-15] MEDS: SODIUM CHLORIDE 1,000 ML IV SCH (13:11)
[2018-06-15 14:09] LABS: ANION GAP 9 MMOL/L (8-16); BLOOD UREA NITROGEN 7 mg/dL (7-18); CALCIUM 7.7 mg/dL (8.5-10.1); CHLORIDE 95 mmol/L (98-107); CO2 22 mmol/L (21-32); CREATININE 0.4 mg/dL (0.55-1.3); GLUCOSE,RANDOM 115 mg/dL (74-106); MAGNESIUM 2.3 mg/dL (1.8-2.4); PHOSPHOROUS 2.1 mg/dL (2.5-4.9); POTASSIUM 3.9 mmol/L (3.5-5.1); SODIUM 126 mmol/L (136-145)
[2018-06-15] MEDS ORDERED: PT OWN MED DRAWER 7, Y5N ONE (15:39)
--- NOTE | 2018-06-15 16:37 | ECHO ---
Name: IRAJanuary Exam:Adult Echocardiogram Study Date: 06/15/2018 11:30 AM Age: 83 yrs Reason For Study: paroxismal afib Height: 60 in Weight: 110 lb BSA: 1.4 m2 MMode/2D Measurements & Calculations IVSd: 1.2 cm Ao root diam: 3.0 cm LVIDd: 3.4 cm LA dimension: 3.5 cm LVIDs: 2.1 cm LVPWd: 1.2 cm LVPWs: 1.2 cm EDV(Teich): 48.9 ml ESV(Teich): 15.0 ml Doppler Measurements & Calculations MV E max jose: 84.9 cm/sec Ao V2 max: 167.4 cm/sec MV A max jose: 121.4 cm/sec Ao max P.2 mmHg MV E/A: 0.70 MV dec time: 0.24 sec LV V1 max P.0 mmHg MR max ojse: 473.9 cm/sec LV V1 max: 112.0 cm/sec MR max P.5 mmHg TR max jose: 279.8 cm/sec PA V2 max: 99.0 cm/sec TR max P.3 mmHg PA max P.0 mmHg Med Peak E' Jose: 6.1 cm/sec Med E/e': 13.8 Lat Peak E' Jose: 5.9 cm/sec Lat E/e': 14.3 Procedure A complete two-dimensional transthoracic echocardiogram was performed (2D, M-mode, Doppler and color flow Doppler). The study was technically adequate with some images being suboptimal in quality. The patien t was in normal sinus rhythm during the exam. Left Ventricle There is mild concentric left ventricular hypertrophy. The left ventricle is normal in size. Ejection Fraction = 55-60%. Left ventricular systolic function is normal. The transmitral spectral Doppler flow pattern is suggestive of impaired LV relaxation. Septal motion is consistent with conduction abnormality. Right Ventricle The right ventricle is normal in size and function. Atria The left atrial size is normal. Mitral Valve The mitral valve leaflets appear normal. There is no evidence of stenosis, fluttering, or prolapse. Tricuspid Valve The tricuspid valve is not well visualized, but is grossly normal. There is mild tricuspid regurgitat ion. Right ventricular systolic pressure is elevated at 35-40 mmhg. There is mild pulmonary hypertension. Aortic Valve The aortic valve is not well visualized. Pulmonic Valve The pulmonic valve is not well visualized. Great Vessels The aortic root is normal size. Normal IVC size and contractility. Pericardium/Pleura There is no pericardial effusion. Interpretation Summary There is mild concentric left ventricular hypertrophy. Left ventricular systolic function is normal. Septal motion is consistent with conduction abnormality. The right ventricle is normal in size and function. There is mild pulmonary hypertension. MD Elvia Carlton 06/15/2018 04:36 PM
[2018-06-15 16:50] LABS: ANION GAP 8 MMOL/L (8-16); BLOOD UREA NITROGEN 8 mg/dL (7-18); CALCIUM 7.3 mg/dL (8.5-10.1); CHLORIDE 97 mmol/L (98-107); CO2 22 mmol/L (21-32); CREATININE 0.5 mg/dL (0.55-1.3); GLUCOSE,RANDOM 168 mg/dL (74-106); POTASSIUM 3.9 mmol/L (3.5-5.1); SODIUM 128 mmol/L (136-145)
--- NOTE | 2018-06-15 18:05 | PN ---
Progress Note, Physician History of Present Illness: Pt seen and examined at bedside. She is awake and alert. She does not remember the events that occurred yesterday. She denies shortness of breath. She denies headache. I saw her earlier today. She is tolerating diet and has good appetite. Her sodium has been improving. - Current Medication List Current Medications: Active Medications Amlodipine Besylate (Norvasc -) 10 mg PO DAILY [facility] Last Admin: 06/15/18 10:20 Dose: 10 mg Apixaban (Eliquis -) 2.5 mg PO BID [facility] Last Admin: 06/15/18 10:20 Dose: 2.5 mg Chlorhexidine Gluconate (Hibiclens For Decolonization -) 1 applic TP HS [facility] Last Admin: 06/14/18 22:23 Dose: 1 applic Sodium Chloride (Normal Saline -) 1,000 mls @ 75 mls/hr IV ASDIR [facility] [place] Last Admin: 06/15/18 13:11 Dose: 75 mls/hr Levetiracetam (Keppra Injection -) 500 mg IVPB BID [facility] [place] Last Admin: 06/15/18 10:20 Dose: 500 mg Losartan Potassium (Cozaar -) 100 mg PO DAILY [facility] Last Admin: 06/15/18 10:21 Dose: 100 mg Metoprolol Succinate (Toprol Xl -) 25 mg PO DAILY [facility] [place] Last Admin: 06/15/18 10:21 Dose: 25 mg Mupirocin (Bactroban Ointment (For Decolonization) -) 1 applic NS BID [facility] Stop: 06/19/18 21:59 Last Admin: 06/15/18 10:19 Dose: 1 applic Ranitidine HCl (Zantac -) 150 mg PO DAILY [facility] [place] Last Admin: 06/15/18 10:20 Dose: 150 mg - Objective Vital Signs: Vital Signs Temperature 98.0 F 06/15/18 14:00 Pulse Rate 63 06/15/18 14:00 Respiratory Rate 18 06/15/18 14:00 Blood Pressure 136/84 06/15/18 14:00 O2 Sat by Pulse Oximetry (%) 100 06/15/18 12:54 Constitutional: Yes: Calm Eyes: Yes: Conjunctiva Clear HENT: Yes: Atraumatic Neck: Yes: Supple Cardiovascular: Yes: S1, S2 Respiratory: Yes: CTA Bilaterally Gastrointestinal: Yes: Normal Bowel Sounds, Soft Genitourinary: Yes: WNL Musculoskeletal: Yes: WNL Edema: No Integumentary: Yes: WNL Neurological: Yes: Oriented Psychiatric: Yes: Oriented Labs: CBC, BMP 06/15/18 05:30 06/15/18 16:20 INR, PTT INR 0.93 (0.83-1.09) 06/14/18 03:15 Problem List - Problems (1) Acute hyponatremia Code(s): E87.1 - HYPO-OSMOLALITY AND HYPONATREMIA (2) Altered mental status Code(s): R41.82 - ALTERED MENTAL STATUS, UNSPECIFIED Qualifiers: Altered mental status type: disorientation Qualified Code(s): R41.0 - Disorientation, unspecified (3) Dehydration Code(s): E86.0 - DEHYDRATION (4) Hyperlipidemia Code(s): E78.5 - HYPERLIPIDEMIA, UNSPECIFIED Qualifiers: Hyperlipidemia type: pure hypercholesterolemia Qualified Code(s): E78.00 - Pure hypercholesterolemia, unspecified; E78.0 - Pure hypercholesterolemia (5) HTN (hypertension) Code(s): I10 - ESSENTIAL (PRIMARY) HYPERTENSION Qualifiers: Hypertension type: essential hypertension Qualified Code(s): I10 - Essential (primary) hypertension Assessment/Plan Current Medications Generic Name Dose Route Start Last Admin Trade Name Austinq PRN Reason Stop Dose Admin Amlodipine Besylate 10 mg 06/14/18 10:00 06/15/18 10:20 Norvasc - PO 10 mg DAILY [facility] Administration Apixaban 2.5 mg 06/14/18 22:00 06/15/18 10:20 Eliquis - PO 2.5 mg BID [facility] Administration Chlorhexidine Gluconate 1 applic 06/14/18 22:00 06/14/18 22:23 Hibiclens For Decolonization - TP 1 applic HS [facility] Administration Sodium Chloride 1,000 mls @ 75 mls/hr 06/14/18 21:45 06/15/18 13:11 Normal Saline - IV 75 mls/hr ASDIR [facility] Administration Levetiracetam 500 mg 06/14/18 10:00 06/15/18 10:20 Keppra Injection - IVPB 500 mg BID [facility] Administration Losartan Potassium 100 mg 06/14/18 10:00 06/15/18 10:21 Cozaar - PO 100 mg DAILY [facility] Administration Metoprolol Succinate 25 mg 06/14/18 10:00 06/15/18 10:21 Toprol Xl - PO 25 mg DAILY [facility] Administration Mupirocin 1 applic 06/14/18 22:00 06/15/18 10:19 Bactroban Ointment (For Decolonization) - NS 06/19/18 21:59 1 applic BID [facility] Administration Ranitidine HCl 150 mg 06/15/18 10:00 06/15/18 10:20 Zantac - PO 150 mg DAILY [facility] Administration Laboratory Tests 06/14/18 06/14/18 06/15/18 19:12 22:00 05:30 Sodium 127 L 125 L 127 L 06/15/18 06/15/18 06/15/18 09:35 12:15 16:20 Sodium 125 L 126 L 128 L Impression 1. Hyponatremia 2. HTN 3. seizure 4. anxiety 5. change in mental status Plan - mental status is markedly improved - d/c fluids - will start salt tabs - will restrict free water, pt says she was trying to drink as much water as she could when she tool the endoscopy prep - labs reviewed through the course of the day - stop fluids as she is starting to autocorrect - cont to monitor sodium levels - will follow pt - pt remains at risk to fall - discussed with ICU team - avoid a change in sodium of greater than 10 meq in [address] Rodriges
[2018-06-15 19:04] LABS: ANION GAP 8 MMOL/L (8-16); BLOOD UREA NITROGEN 7 mg/dL (7-18); CALCIUM 7.6 mg/dL (8.5-10.1); CHLORIDE 98 mmol/L (98-107); CO2 21 mmol/L (21-32); CREATININE 0.5 mg/dL (0.55-1.3); GLUCOSE,RANDOM 144 mg/dL (74-106); POTASSIUM 3.9 mmol/L (3.5-5.1); SODIUM 127 mmol/L (136-145)
[2018-06-15] MEDS: SODIUM CHLORIDE 1 GM TABLET PO SCH (21:14)
[2018-06-15] MEDS: CHLORHEXIDINE GLUCONATE 4% CLEANSER FOR DECOLONIZATION TP SCH (21:14)
--- NOTE | 2018-06-15 21:59 | EKG ---
Test Reason : Blood Pressure : / mmHG Vent. Rate : 068 BPM Atrial Rate : 068 BPM P-R Int : 150 ms QRS Dur : 132 ms QT Int : 446 ms P-R-T Axes : 090 033 070 degrees QTc Int : 474 ms POOR DATA QUALITY, INTERPRETATION MAY BE ADVERSELY AFFECTED NORMAL SINUS RHYTHM LEFT BUNDLE BRANCH BLOCK ABNORMAL ECG WHEN COMPARED WITH ECG OF 14-JUN-2018 03:36, SINUS RHYTHM HAS REPLACED ATRIAL FIBRILLATION VENT. RATE HAS DECREASED BY 45 BPM T WAVE INVERSION NO LONGER EVIDENT IN LATERAL LEADS Confirmed by KYLER GUERRA MD ([id number]) on 06/15/2018 9:59:08 PM Referred By: Confirmed By:KYLER GUERRA MD
[2018-06-15 22:06] LABS: ANION GAP 6 MMOL/L (8-16); BLOOD UREA NITROGEN 9 mg/dL (7-18); CALCIUM 7.9 mg/dL (8.5-10.1); CHLORIDE 99 mmol/L (98-107); CO2 22 mmol/L (21-32); CREATININE 0.5 mg/dL (0.55-1.3); GLUCOSE,RANDOM 93 mg/dL (74-106); SODIUM 127 mmol/L (136-145)
[2018-06-16 01:18] LABS: ANION GAP 8 MMOL/L (8-16); BLOOD UREA NITROGEN 8 mg/dL (7-18); CALCIUM 7.5 mg/dL (8.5-10.1); CHLORIDE 99 mmol/L (98-107); CO2 22 mmol/L (21-32); CREATININE 0.5 mg/dL (0.55-1.3); GLUCOSE,RANDOM 94 mg/dL (74-106); SODIUM 129 mmol/L (136-145)
[2018-06-16 06:00] LABS: BASO % 0.2 % (0-2.0); EOS % 0.7 % (0-4.5); HEMATOCRIT 29.9 % (32.4-45.2); HEMOGLOBIN 10.3 GM/dL (10.7-15.3); LYMPH % 29.6 % (8-40); MCH 30.9 pg (25.7-33.7); MCHC 34.5 g/dl (32.0-36.0); MEAN CELL VOLUME 89.4 fl (80-96); MEAN PLT VOLUME 8.4 fl (7.5-11.1); MONO % 11.5 % (3.8-10.2); PLATELET COUNT 236 K/MM3 (134-434); RBC 3.34 M/mm3 (3.60-5.2); RDW 13.5 % (11.6-15.6); WHITE BLOOD COUNT 6.7 K/mm3 (4.0-10.0)
[2018-06-16 06:21] LABS: ANION GAP 7 MMOL/L (8-16); BLOOD UREA NITROGEN 6 mg/dL (7-18); CALCIUM 7.6 mg/dL (8.5-10.1); CHLORIDE 102 mmol/L (98-107); CO2 24 mmol/L (21-32); CREATININE 0.3 mg/dL (0.55-1.3); GLUCOSE,RANDOM 82 mg/dL (74-106); POTASSIUM 3.7 mmol/L (3.5-5.1); SODIUM 132 mmol/L (136-145)
[2018-06-16] MEDS ORDERED: PT OWN MED DRAWER 7, Y5N ONE ×2 (08:41→12:49)
--- NOTE | 2018-06-16 09:04 | PN ---
Physical Exam: SUBJECTIVE: Patient seen and examined at bedside. Mental status and overall function dramatically improved. Patient now fully conversant. Lying comfortably in bed. OBJECTIVE: Vital Signs Period Temp Pulse Resp BP Sys/Castillo Pulse Ox Last 24 Hr 98.0 F-98.2 F 60-72 14-20 126-152/49-84 100-100 GENERAL: A&Ox3, voice tremulous, otherwise no distress HEAD: NC/AT EYES: PERRLA, EOMI ENT: moist mucous membranes NECK: Trachea midline, full range of motion, supple LUNGS: CTA b/l, no accessory muscle use HEART: S1S2 no m/r/g ABDOMEN: +bs, soft, NT, ND EXTREMITIES: 2+ pulses, warm, well-perfused, no edema. 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 PSYCHIATRIC: appropriate tone, eye contact Laboratory Results - last 24 hr 06/15/18 06/15/18 06/15/18 05:30 09:35 12:15 WBC RBC Hgb Hct MCV MCH MCHC RDW Plt Count MPV Absolute Neuts (auto) Neutrophils % Lymphocytes % Monocytes % Eosinophils % Basophils % Nucleated RBC % Sodium 125 L 126 L Potassium 3.7 3.9 Chloride 96 L 95 L Carbon Dioxide 21 22 Anion Gap 8 9 BUN 5 L 7 Creatinine 0.3 L 0.4 L Creat Clearance w eGFR > 60 > 60 Random Glucose 68 L 115 H Calcium 8.0 L 7.7 L Phosphorus 2.1 L Magnesium 2.3 Creatine Kinase Creatine Kinase Index CK-MB (CK-2) Cortisol AM Sample 12.2 Urine Osmolality Ur Random Sodium 06/15/18 06/15/18 06/15/18 16:20 16:30 16:30 WBC RBC Hgb Hct MCV MCH MCHC RDW Plt Count MPV Absolute Neuts (auto) Neutrophils % Lymphocytes % Monocytes % Eosinophils % Basophils % Nucleated RBC % Sodium 128 L Potassium 3.9 Chloride 97 L Carbon Dioxide 22 Anion Gap 8 BUN 8 Creatinine 0.5 L Creat Clearance w eGFR > 60 Random Glucose 168 H Calcium 7.3 L Phosphorus Magnesium Creatine Kinase Creatine Kinase Index CK-MB (CK-2) Cortisol AM Sample Urine Osmolality 297 L Ur Random Sodium 61 06/15/18 06/15/18 06/16/18 18:15 20:20 00:00 WBC RBC Hgb Hct MCV MCH MCHC RDW Plt Count MPV Absolute Neuts (auto) Neutrophils % Lymphocytes % Monocytes % Eosinophils % Basophils % Nucleated RBC % Sodium 127 L 127 L 129 L Potassium 3.9 4.0 4.0 Chloride 98 99 99 Carbon Dioxide 21 22 22 Anion Gap 8 6 L 8 BUN 7 9 8 Creatinine 0.5 L 0.5 L 0.5 L Creat Clearance w eGFR > 60 > 60 > 60 Random Glucose 144 H 93 94 Calcium 7.6 L 7.9 L 7.5 L Phosphorus Magnesium Creatine Kinase Creatine Kinase Index CK-MB (CK-2) Cortisol AM Sample Urine Osmolality Ur Random Sodium 06/16/18 06/16/18 05:30 05:30 WBC 6.7 RBC 3.34 L Hgb 10.3 L Hct 29.9 L MCV 89.4 MCH 30.9 MCHC 34.5 RDW 13.5 Plt Count 236 MPV 8.4 Absolute Neuts (auto) 3.9 Neutrophils % 58.0 D Lymphocytes % 29.6 D Monocytes % 11.5 H Eosinophils % 0.7 D Basophils % 0.2 Nucleated RBC % 0 Sodium 132 L Potassium 3.7 Chloride 102 Carbon Dioxide 24 Anion Gap 7 L BUN 6 L Creatinine 0.3 L Creat Clearance w eGFR > 60 Random Glucose 82 Calcium 7.6 L Phosphorus 2.0 L Magnesium 2.0 Creatine Kinase 322 H Creatine Kinase Index 1.3 CK-MB (CK-2) 4.4 H Cortisol AM Sample Urine Osmolality Ur Random Sodium Active Medications Generic Name Dose Route Start Last Admin Trade Name Freq PRN Reason Stop Dose Admin Amlodipine Besylate 10 mg 06/14/18 10:00 06/15/18 10:20 Norvasc - PO 10 mg DAILY [facility] Administration Apixaban 2.5 mg 06/14/18 22:00 06/15/18 21:14 Eliquis - PO 2.5 mg BID [facility] Administration Chlorhexidine Gluconate 1 applic 06/14/18 22:00 06/15/18 21:14 Hibiclens For Decolonization - TP 1 applic HS [facility] Administration Levetiracetam 500 mg 06/14/18 10:00 06/15/18 21:14 Keppra Injection - IVPB 500 mg BID STAR Administration Losartan Potassium 100 mg 06/14/18 10:00 06/15/18 10:21 Cozaar - PO 100 mg DAILY [facility] Administration Metoprolol Succinate 25 mg 06/14/18 10:00 06/15/18 10:21 Toprol Xl - PO 25 mg DAILY [facility] Administration Mupirocin 1 applic 06/14/18 22:00 06/15/18 21:14 Bactroban Ointment (For Decolonization) - NS 06/19/18 21:59 1 applic BID [facility] Administration Ranitidine HCl 150 mg 06/15/18 10:00 06/15/18 10:20 Zantac - PO 150 mg DAILY [facility] Administration Sodium Chloride 1 gm 06/15/18 22:00 06/15/18 21:14 Sodium Chloride Tablet - PO 1 gm BID [facility]AR Administration ASSESSMENT/PLAN: 83 y/o F w/ PMHx HTN, anxiety, non-obstructive CAD, developed AMS and seizures 2 /2 colonoscopy bowel prep, brought to ED, found to be hyponatremic to 122 and in AFib w/ RVR. Admitted to ICU for correction and close observation. #hyponatremia/lytes -AMS resolved -AM Na corrected to 132 -free water restriction to 800cc -1g NaCl tablet BID -IVF held -urine osm 297, urine Na 61 -cont Keppra BID x 2 days or pending correction per neurology -nutraphos -CK remains elevated, likely 2/2 seizure, repeat in AM #Afib -[id number] -cont Eliquis #HTN -Norvasc 10 qd, losartan 100qd, Toprol XL 25 bid #FEN -no IVF -BMPs q3H -soft regular diet #PPx -DVT: Eliquis -GI: Zantac 150 daily #Dispo -transfer to med-surg Visit type - Emergency Visit Emergency Visit: No - New Patient This patient is new to me today: No - Critical Care Critical Care patient: Yes Total Critical Care Time (in minutes): 40 Critical Care Statement: The care of this patient involved high complexity decision making to prevent further life threatening deterioration of the patient 's condition and/or to evaluate & treat vital organ system(s) failure or risk of failure.
[2018-06-16] MEDS: metoPROLOL SUCCINATE 25 MG TAB.SR.24H (FP) PO SCH (09:21)
[2018-06-16] MEDS: RANITIDINE HCL 150 MG TABLET (FP) PO SCH (09:21)
[2018-06-16 09:23] LABS: ANION GAP 6 MMOL/L (8-16); BLOOD UREA NITROGEN 5 mg/dL (7-18); CALCIUM 8.5 mg/dL (8.5-10.1); CHLORIDE 104 mmol/L (98-107); CO2 24 mmol/L (21-32); CREATININE 0.4 mg/dL (0.55-1.3); GLUCOSE,RANDOM 111 mg/dL (74-106); POTASSIUM 3.5 mmol/L (3.5-5.1); SODIUM 134 mmol/L (136-145)
[2018-06-16] MEDS: MUPIROCIN 2% TOPICAL OINTMENT FOR DECOLONIZATION NS SCH ×2 (09:24→21:26)
[2018-06-16] MEDS: levETIRAcetam 500 MG/5 ML INJECTION VIAL IVPB SCH (09:24)
[2018-06-16] MEDS: amLODIPine BESYLATE 10 MG TABLET (FP) PO SCH (09:24)
[2018-06-16] MEDS: SODIUM CHLORIDE 1 GM TABLET PO SCH (09:24)
[2018-06-16] MEDS: LOSARTAN POTASSIUM 50 MG TABLET (FP) PO SCH (09:24)
[2018-06-16] MEDS: APIXABAN 2.5 MG TABLET PO SCH ×2 (09:32→21:27)
--- NOTE | 2018-06-16 09:40 | PN ---
Progress Note, Physician History of Present Illness: Mental status improved to baseline, no further episodes of PAF. - Current Medication List Current Medications: Active Medications Amlodipine Besylate (Norvasc -) 10 mg PO DAILY [facility] Last Admin: 06/16/18 09:24 Dose: 10 mg Apixaban (Eliquis -) 2.5 mg PO BID [facility] Last Admin: 06/16/18 09:32 Dose: 2.5 mg Chlorhexidine Gluconate (Hibiclens For Decolonization -) 1 applic TP HS [facility] Last Admin: 06/15/18 21:14 Dose: 1 applic Levetiracetam (Keppra Injection -) 500 mg IVPB BID [facility] Last Admin: 06/16/18 09:24 Dose: 500 mg Losartan Potassium (Cozaar -) 100 mg PO DAILY [facility] Last Admin: 06/16/18 09:24 Dose: 100 mg Metoprolol Succinate (Toprol Xl -) 25 mg PO DAILY [facility] Last Admin: 06/16/18 09:21 Dose: 25 mg Mupirocin (Bactroban Ointment (For Decolonization) -) 1 applic NS BID [facility] Stop: 06/19/18 21:59 Last Admin: 06/16/18 09:24 Dose: 1 applic Potassium Phos/Sodium Phos (Phos-Nak Packet -) 1 packet PO DAILY [facility] Ranitidine HCl (Zantac -) 150 mg PO DAILY [facility] Last Admin: 06/16/18 09:21 Dose: 150 mg - Objective Vital Signs: Vital Signs Temperature 98.2 F 06/16/18 06:00 Pulse Rate 85 06/16/18 08:00 Respiratory Rate 20 06/16/18 08:00 Blood Pressure 156/63 06/16/18 08:00 O2 Sat by Pulse Oximetry (%) 100 06/16/18 07:18 Constitutional: Yes: No Distress, Calm, Thin Neck: Yes: Supple Cardiovascular: Yes: Regular Rate and Rhythm Respiratory: Yes: Regular, CTA Bilaterally Gastrointestinal: Yes: Normal Bowel Sounds, Soft Edema: No Labs: CBC, BMP 06/16/18 05:30 06/16/18 08:50 INR, PTT INR 0.93 (0.83-1.09) 06/14/18 03:15 - ....Imaging EKG: Report Reviewed (Tele: NSR no PAF) Problem List - Problems (1) Acute hyponatremia Code(s): E87.1 - HYPO-OSMOLALITY AND HYPONATREMIA (2) Altered mental status Code(s): R41.82 - ALTERED MENTAL STATUS, UNSPECIFIED Qualifiers: Altered mental status type: disorientation Qualified Code(s): R41.0 - Disorientation, unspecified (3) Atrial fibrillation with RVR Code(s): I48.91 - UNSPECIFIED ATRIAL FIBRILLATION (4) Cerebral hyponatremia Code(s): E87.1 - HYPO-OSMOLALITY AND HYPONATREMIA (5) Seizure Code(s): R56.9 - UNSPECIFIED CONVULSIONS (6) CAD (coronary artery disease) Code(s): I25.10 - ATHSCL HEART DISEASE OF [place] CORONARY ARTERY W/O ANG PCTRS Qualifiers: Coronary Disease-Associated Artery/Lesion type: [place] artery [place] vs. transplanted heart: [place] heart Associated angina: without angina Qualified Code(s): I25.10 - Atherosclerotic heart disease of [place] coronary artery without angina pectoris (7) HTN (hypertension) Code(s): I10 - ESSENTIAL (PRIMARY) HYPERTENSION Qualifiers: Hypertension type: essential hypertension Qualified Code(s): I10 - Essential (primary) hypertension Assessment/Plan Echo: 04/21/2018 Normal LV and RV size and fxn, impaied LV relaxation, mod TR, mild MR 1. Toxic metabolic encephelopathy and seizure referable to acute symptomatic hyponatremia improving 2. Paroxysmal afib with RVR now in sinus rhythm [id number] 3. 1 vessel CAD, angina pectoris 4. HTN/HCVD 5. LBBB P:1. Correcting hypnatremia, seizure prophylaxis short-term, telemetry monitoring shows no recurrent PAF 2. Continue Norvasc 10 qd, losartan 100qd, increase Toprol XL 50 qd, Eliquis 2.5 bid (age>80, wt<60 kg) with GI protection given elevated risk score 3. D/c planning
[2018-06-16] MEDS: NAPH,MB-DB/K PH,MBDB POWDER PACKET PO SCH (09:48)
[2018-06-16 12:44] VITALS: BMI 22.8
[2018-06-16 12:45] LABS: ANION GAP 5 MMOL/L (8-16); BLOOD UREA NITROGEN 8 mg/dL (7-18); CHLORIDE 105 mmol/L (98-107); CO2 26 mmol/L (21-32); CREATININE 0.5 mg/dL (0.55-1.3); GLUCOSE,RANDOM 104 mg/dL (74-106); POTASSIUM 3.9 mmol/L (3.5-5.1); SODIUM 136 mmol/L (136-145)
--- NOTE | 2018-06-16 14:12 | PN ---
Teaching Attending Note Name of Resident: Richard Phillips ATTENDING PHYSICIAN STATEMENT I saw and evaluated the patient. I reviewed the resident's note and discussed the case with the resident. I agree with the resident's findings and plan as documented. SUBJECTIVE: Patient seen and examined in the ICU. Awake and alert. No further seizure episodes. No CP or SOB. OBJECTIVE: Intake & Output 06/13/18 06/14/18 06/15/18 06/16/18 23:59 23:59 23:59 23:59 Intake Total 584 2230 235 Output Total 240 1100 300 Balance 344 1130 -65 Weight 110 lb 117 lb Last Vital Signs Temp Pulse Resp BP Pulse Ox 97.7 F 67 20 150/63 100 06/16/18 10:00 06/16/18 12:00 06/16/18 12:00 06/16/18 12:00 06/16/18 07:18 Active Medications Amlodipine Besylate (Norvasc -) 10 mg PO DAILY [facility] Last Admin: 06/16/18 09:24 Dose: 10 mg Apixaban (Eliquis -) 2.5 mg PO BID [facility] Last Admin: 06/16/18 09:32 Dose: 2.5 mg Chlorhexidine Gluconate (Hibiclens For Decolonization -) 1 applic TP HS [facility] Last Admin: 06/15/18 21:14 Dose: 1 applic Losartan Potassium (Cozaar -) 100 mg PO DAILY [facility] Last Admin: 06/16/18 09:24 Dose: 100 mg Metoprolol Succinate (Toprol Xl -) 50 mg PO DAILY [facility] Last Admin: 06/16/18 12:19 Dose: 50 mg Mupirocin (Bactroban Ointment (For Decolonization) -) 1 applic NS BID [facility] Stop: 06/19/18 21:59 Last Admin: 06/16/18 09:24 Dose: 1 applic Potassium Phos/Sodium Phos (Phos-Nak Packet -) 1 packet PO DAILY [facility] Last Admin: 06/16/18 09:48 Dose: 1 packet Ranitidine HCl (Zantac -) 150 mg PO DAILY [facility] Last Admin: 06/16/18 09:21 Dose: 150 mg Gen: NAD at rest Heart: RRR Lung: decreased breath sounds at the bases Abd: soft, nontender Ext: no edema Laboratory Results - last 24 hr 1006/15/18 06/15/18 05:30 16:20 16:30 WBC RBC Hgb Hct MCV MCH MCHC RDW Plt Count MPV Absolute Neuts (auto) Neutrophils % Lymphocytes % Monocytes % Eosinophils % Basophils % Nucleated RBC % Sodium 128 L Potassium 3.9 Chloride 97 L Carbon Dioxide 22 Anion Gap 8 BUN 8 Creatinine 0.5 L Creat Clearance w eGFR > 60 Random Glucose 168 H Calcium 7.3 L Phosphorus Magnesium Creatine Kinase Creatine Kinase Index CK-MB (CK-2) Cortisol AM Sample 12.2 Urine Osmolality 297 L Ur Random Sodium 06/15/18 06/15/18 06/15/18 16:30 18:15 20:20 WBC RBC Hgb Hct MCV MCH MCHC RDW Plt Count MPV Absolute Neuts (auto) Neutrophils % Lymphocytes % Monocytes % Eosinophils % Basophils % Nucleated RBC % Sodium 127 L 127 L Potassium 3.9 4.0 Chloride 98 99 Carbon Dioxide 21 22 Anion Gap 8 6 L BUN 7 9 Creatinine 0.5 L 0.5 L Creat Clearance w eGFR > 60 > 60 Random Glucose 144 H 93 Calcium 7.6 L 7.9 L Phosphorus Magnesium Creatine Kinase Creatine Kinase Index CK-MB (CK-2) Cortisol AM Sample Urine Osmolality Ur Random Sodium 61 06/16/18 06/16/18 06/16/18 00:00 05:30 05:30 WBC 6.7 RBC 3.34 L Hgb 10.3 L Hct 29.9 L MCV 89.4 MCH 30.9 MCHC 34.5 RDW 13.5 Plt Count 236 MPV 8.4 Absolute Neuts (auto) 3.9 Neutrophils % 58.0 D Lymphocytes % 29.6 D Monocytes % 11.5 H Eosinophils % 0.7 D Basophils % 0.2 Nucleated RBC % 0 Sodium 129 L 132 L Potassium 4.0 3.7 Chloride 99 102 Carbon Dioxide 22 24 Anion Gap 8 7 L BUN 8 6 L Creatinine 0.5 L 0.3 L Creat Clearance w eGFR > 60 > 60 Random Glucose 94 82 Calcium 7.5 L 7.6 L Phosphorus 2.0 L Magnesium 2.0 Creatine Kinase 322 H Creatine Kinase Index 1.3 CK-MB (CK-2) 4.4 H Cortisol AM Sample Urine Osmolality Ur Random Sodium 06/16/18 06/16/18 08:50 12:06 WBC RBC Hgb Hct MCV MCH MCHC RDW Plt Count MPV Absolute Neuts (auto) Neutrophils % Lymphocytes % Monocytes % Eosinophils % Basophils % Nucleated RBC % Sodium 134 L 136 Potassium 3.5 3.9 Chloride 104 105 Carbon Dioxide 24 26 Anion Gap 6 L 5 L BUN 5 L 8 Creatinine 0.4 L 0.5 L Creat Clearance w eGFR > 60 > 60 Random Glucose 111 H 104 Calcium 8.5 8.0 L Phosphorus Magnesium Creatine Kinase Creatine Kinase Index CK-MB (CK-2) Cortisol AM Sample Urine Osmolality Ur Random Sodium ASSESSMENT AND PLAN: Altered Mental Status improving Acute Symptomatic Hyponatremia Seizure from above Lactic Acidosis Paroxysmal Atrial Fibrillation CAD HTN - monitor lytes - aspiration precautions - antiepileptics per Neuro - rate/rhythm control - continue anticoagulation - Floor Dr Judd
--- NOTE | 2018-06-16 14:37 | PN ---
Progress Note, Physician Chief Complaint: Patient seen , discharge planning possibly for tomorrow History of Present Illness: 83 yo female who was admitted for weakness and confusion after she underwent her bowel prep for colonoscopy. She is independent and efficient, living alone. - Current Medication List Current Medications: Active Medications Amlodipine Besylate (Norvasc -) 10 mg PO DAILY [facility] Last Admin: 06/16/18 09:24 Dose: 10 mg Apixaban (Eliquis -) 2.5 mg PO BID [facility] Last Admin: 06/16/18 09:32 Dose: 2.5 mg Chlorhexidine Gluconate (Hibiclens For Decolonization -) 1 applic TP HS [facility] Last Admin: 06/15/18 21:14 Dose: 1 applic Losartan Potassium (Cozaar -) 100 mg PO DAILY [facility] Last Admin: 06/16/18 09:24 Dose: 100 mg Metoprolol Succinate (Toprol Xl -) 50 mg PO DAILY [facility] Last Admin: 06/16/18 12:19 Dose: 50 mg Mupirocin (Bactroban Ointment (For Decolonization) -) 1 applic NS BID [facility] Stop: 06/19/18 21:59 Last Admin: 06/16/18 09:24 Dose: 1 applic Potassium Phos/Sodium Phos (Phos-Nak Packet -) 1 packet PO DAILY [facility] Last Admin: 06/16/18 09:48 Dose: 1 packet Ranitidine HCl (Zantac -) 150 mg PO DAILY [facility] Last Admin: 06/16/18 09:21 Dose: 150 mg - Objective Vital Signs: Vital Signs Temperature 97.7 F 06/16/18 10:00 Pulse Rate 67 06/16/18 12:00 Respiratory Rate 20 06/16/18 12:00 Blood Pressure 150/63 06/16/18 12:00 O2 Sat by Pulse Oximetry (%) 100 06/16/18 07:18 Constitutional: Yes: No Distress, Calm Eyes: Yes: Conjunctiva Clear, EOM Intact HENT: Yes: Atraumatic, Normocephalic Neck: Yes: Supple, Trachea Midline Cardiovascular: Yes: Regular Rate and Rhythm, S1, S2 Respiratory: Yes: Regular, CTA Bilaterally, On Nasal O2 Gastrointestinal: Yes: Normal Bowel Sounds, Soft, Abdomen, Obese. No: Hepatomegaly, Splenomegaly Extremities: No: Calf Tenderness Edema: No Peripheral Pulses WNL: Yes Neurological: Yes: Alert, Oriented Psychiatric: Yes: Alert, Oriented Labs: CBC, BMP 06/16/18 05:30 06/16/18 12:06 INR, PTT INR 0.93 (0.83-1.09) 06/14/18 03:15 Problem List - Problems (1) Acute hyponatremia Assessment/Plan: NA 136, corrected now with Na tablets, blood pressure was increased during the past 24 hours Mg Phos, and Ca being corrected Code(s): E87.1 - HYPO-OSMOLALITY AND HYPONATREMIA (2) Atrial fibrillation with RVR Assessment/Plan: continue Toprol XL 25 mg daily currently HR is controlled ECHO unchanged compared to baseline Code(s): I48.91 - UNSPECIFIED ATRIAL FIBRILLATION (3) Altered mental status Assessment/Plan: resolved Code(s): R41.82 - ALTERED MENTAL STATUS, UNSPECIFIED Qualifiers: Altered mental status type: disorientation Qualified Code(s): R41.0 - Disorientation, unspecified (4) CAD (coronary artery disease) Assessment/Plan: in NSR , was started on Eliquis correct lytes Code(s): I25.10 - ATHSCL HEART DISEASE OF [place] CORONARY ARTERY W/O ANG PCTRS Qualifiers: Coronary Disease-Associated Artery/Lesion type: [place] artery [place] vs. transplanted heart: [place] heart Associated angina: without angina Qualified Code(s): I25.10 - Atherosclerotic heart disease of [place] coronary artery without angina pectoris (5) Hypocalcemia Assessment/Plan: corrected Code(s): E83.51 - HYPOCALCEMIA (6) Hypomagnesemia Assessment/Plan: being corrected Code(s): E83.42 - HYPOMAGNESEMIA (7) Seizure Assessment/Plan: on Keppra, Keppra level pending episode no repeated, restarted diet Code(s): R56.9 - UNSPECIFIED CONVULSIONS
--- NOTE | 2018-06-16 17:11 | PN ---
Progress Note, Physician History of Present Illness: Pt seen and examined at bedside. She is awake and alert. She says she feels well. - Current Medication List Current Medications: Active Medications Amlodipine Besylate (Norvasc -) 10 mg PO DAILY [facility] Last Admin: 06/16/18 09:24 Dose: 10 mg Apixaban (Eliquis -) 2.5 mg PO BID [facility] Last Admin: 06/16/18 09:32 Dose: 2.5 mg Chlorhexidine Gluconate (Hibiclens For Decolonization -) 1 applic TP HS [facility] Last Admin: 06/15/18 21:14 Dose: 1 applic Losartan Potassium (Cozaar -) 100 mg PO DAILY [facility] Last Admin: 06/16/18 09:24 Dose: 100 mg Metoprolol Succinate (Toprol Xl -) 50 mg PO DAILY [facility] Last Admin: 06/16/18 12:19 Dose: 50 mg Mupirocin (Bactroban Ointment (For Decolonization) -) 1 applic NS BID [facility] Stop: 06/19/18 21:59 Last Admin: 06/16/18 09:24 Dose: 1 applic Potassium Phos/Sodium Phos (Phos-Nak Packet -) 1 packet PO DAILY [facility] Last Admin: 06/16/18 09:48 Dose: 1 packet Ranitidine HCl (Zantac -) 150 mg PO DAILY [facility] Last Admin: 06/16/18 09:21 Dose: 150 mg - Objective Vital Signs: Vital Signs Temperature 97.9 F 06/16/18 14:00 Pulse Rate 72 06/16/18 16:00 Respiratory Rate 14 06/16/18 16:00 Blood Pressure 131/76 06/16/18 16:00 O2 Sat by Pulse Oximetry (%) 100 06/16/18 07:18 Constitutional: Yes: Calm Eyes: Yes: Conjunctiva Clear HENT: Yes: Atraumatic Cardiovascular: Yes: S1, S2 Respiratory: Yes: CTA Bilaterally Gastrointestinal: Yes: Soft Genitourinary: Yes: WNL Musculoskeletal: Yes: WNL Edema: No Integumentary: Yes: WNL Neurological: Yes: Oriented Psychiatric: Yes: Oriented Labs: CBC, BMP 06/16/18 05:30 06/16/18 12:06 INR, PTT INR 0.93 (0.83-1.09) 06/14/18 03:15 Problem List - Problems (1) Acute hyponatremia Code(s): E87.1 - HYPO-OSMOLALITY AND HYPONATREMIA (2) Altered mental status Code(s): R41.82 - ALTERED MENTAL STATUS, UNSPECIFIED Qualifiers: Altered mental status type: disorientation Qualified Code(s): R41.0 - Disorientation, unspecified (3) Dehydration Code(s): E86.0 - DEHYDRATION (4) Hyperlipidemia Code(s): E78.5 - HYPERLIPIDEMIA, UNSPECIFIED Qualifiers: Hyperlipidemia type: pure hypercholesterolemia Qualified Code(s): E78.00 - Pure hypercholesterolemia, unspecified; E78.0 - Pure hypercholesterolemia (5) HTN (hypertension) Code(s): I10 - ESSENTIAL (PRIMARY) HYPERTENSION Qualifiers: Hypertension type: essential hypertension Qualified Code(s): I10 - Essential (primary) hypertension Assessment/Plan Current Medications Generic Name Dose Route Start Last Admin Trade Name Freq PRN Reason Stop Dose Admin Amlodipine Besylate 10 mg 06/14/18 10:00 06/16/18 09:24 Norvasc - PO 10 mg DAILY [facility] Administration Apixaban 2.5 mg 06/14/18 22:00 06/16/18 09:32 Eliquis - PO 2.5 mg BID [facility] Administration Chlorhexidine Gluconate 1 applic 06/14/18 22:00 06/15/18 21:14 Hibiclens For Decolonization - TP 1 applic HS [facility] Administration Losartan Potassium 100 mg 06/14/18 10:00 06/16/18 09:24 Cozaar - PO 100 mg DAILY [facility] Administration Metoprolol Succinate 50 mg 06/16/18 09:41 06/16/18 12:19 Toprol Xl - PO 50 mg DAILY [facility] Administration Mupirocin 1 applic 06/14/18 22:00 06/16/18 09:24 Bactroban Ointment (For Decolonization) - NS 06/19/18 21:59 1 applic BID [facility] Administration Potassium Phos/Sodium Phos 1 packet 06/16/18 10:00 06/16/18 09:48 Phos-Nak Packet - PO 1 packet DAILY [facility] Administration Ranitidine HCl 150 mg 06/15/18 10:00 06/16/18 09:21 Zantac - PO 150 mg DAILY [facility] Administration Impression 1. Hyponatremia 2. HTN 3. seizure 4. anxiety 5. change in mental status Plan - sodium stabilizing - salt tabs stopped - can resume regular oral and fluid intake - monitor sodium levels - pt has autocorrected - avoid a change in sodium of greater than 10 meq in [address] Rodriges
[2018-06-16] MEDS: CHLORHEXIDINE GLUCONATE 4% CLEANSER FOR DECOLONIZATION TP SCH (21:27)
[2018-06-17 06:19] LABS: BASO % 0.5 % (0-2.0); EOS % 0.6 % (0-4.5); HEMATOCRIT 32.8 % (32.4-45.2); HEMOGLOBIN 11.1 GM/dL (10.7-15.3); LYMPH % 30.5 % (8-40); MCH 30.4 pg (25.7-33.7); MCHC 33.9 g/dl (32.0-36.0); MEAN CELL VOLUME 89.6 fl (80-96); MEAN PLT VOLUME 7.9 fl (7.5-11.1); MONO % 14.9 % (3.8-10.2); NEUT % 53.5 % (42.8-82.8); PLATELET COUNT 257 K/MM3 (134-434); RBC 3.66 M/mm3 (3.60-5.2); RDW 13.7 % (11.6-15.6); WHITE BLOOD COUNT 7.5 K/mm3 (4.0-10.0)
[2018-06-17 07:09] LABS: ANION GAP 7 MMOL/L (8-16); BLOOD UREA NITROGEN 10 mg/dL (7-18); CALCIUM 8.2 mg/dL (8.5-10.1); CHLORIDE 111 mmol/L (98-107); CO2 25 mmol/L (21-32); CREATININE 0.6 mg/dL (0.55-1.3); GLUCOSE,RANDOM 93 mg/dL (74-106); MAGNESIUM 2.2 mg/dL (1.8-2.4); PHOSPHOROUS 2.5 mg/dL (2.5-4.9); POTASSIUM 3.9 mmol/L (3.5-5.1); SODIUM 142 mmol/L (136-145)
--- NOTE | 2018-06-17 07:54 | PN ---
Progress Note (short form) - Note Progress Note: Chief Complaint: Events noted, notes reviewed, denies any chest pain or dyspnea , sinus rhythm is noted History of Present Illness: Seen and examined in the ICU. Events noted, notes reviewed, denies any chest pain or dyspnea, sinus rhythm is noted Echocardiography dated 04/21/2018 Normal LV and RV size and function, impaired LV relaxation, moderate TR and mild MR Medications: Current Medications Amlodipine Besylate (Norvasc -) 10 mg PO DAILY [facility] Last Admin: 06/16/18 09:24 Dose: 10 mg Apixaban (Eliquis -) 2.5 mg PO BID [facility] Last Admin: 06/16/18 21:27 Dose: 2.5 mg Chlorhexidine Gluconate (Hibiclens For Decolonization -) 1 applic TP HS [facility] Last Admin: 06/16/18 21:27 Dose: 1 applic Losartan Potassium (Cozaar -) 100 mg PO DAILY [facility] Last Admin: 06/16/18 09:24 Dose: 100 mg Metoprolol Succinate (Toprol Xl -) 50 mg PO DAILY [facility] Last Admin: 06/16/18 12:19 Dose: 50 mg Mupirocin (Bactroban Ointment (For Decolonization) -) 1 applic NS BID [facility] Stop: 06/19/18 21:59 Last Admin: 06/16/18 21:26 Dose: 1 applic Potassium Phos/Sodium Phos (Phos-Nak Packet -) 1 packet PO DAILY [facility] Last Admin: 06/16/18 09:48 Dose: 1 packet Ranitidine HCl (Zantac -) 150 mg PO DAILY [facility] Last Admin: 06/16/18 09:21 Dose: 150 mg Review of Systems - Review of Systems Constitutional: no symptoms reported Respiratory: denies Cough or Sputum Production Cardiovascular: as noted above Gastrointestinal: denies Nausea, Vomiting, Diarrhea, Constipation or Abdominal Pain Genitourinary: no symptoms reported Musculoskeletal: no symptoms reported Endocrine: no symptoms reported Vital Signs: Last Vital Signs Temp Pulse Resp BP Pulse Ox 98.6 F 67 16 129/55 L 100 06/17/18 06:00 06/17/18 06:00 06/17/18 06:00 06/17/18 06:00 06/16/18 21:00 Intake & Output 06/14/18 06/15/18 06/16/18 06/17/18 23:59 23:59 23:59 23:59 Intake Total 584 2230 435 150 Output Total 240 1100 1100 Balance 344 1130 -665 150 Weight 110 lb 117 lb 116 lb 8 oz Neck: Supple Negative JVD Respiratory: Clear to A&P Cardiovascular: S1 S2 Regular Rate and Rhythm Gastrointestinal: Soft Benign Normal Bowel Sounds Ext: Negative Edema Labs: CBC, BMP 06/17/18 05:30 06/17/18 05:30 Hepatic Panel Total Bilirubin 0.7 mg/dL (0.2-1) 06/14/18 12:24 AST 27 U/L (15-37) 06/14/18 12:24 ALT 23 U/L (13-61) 06/14/18 12:24 Alkaline Phosphatase 64 U/L (45-117) 06/14/18 12:24 Albumin 2.9 g/dl (3.4-5.0) L 06/14/18 12:24 Assessment/Plan ASSESSMENT: 1. Toxic metabolic encephelopathy and seizure referable to acute symptomatic hyponatremia, resolved 2. Paroxysmal atrial fibrillation with periods of RVR currently in sinus rhythm [id number] score of 4 on A/C 3. CAD angina pectoris 4. 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 HTN/HCVD 6. CLBBB PLAN: 1. Continue Norvasc, but decrease dosage 2. Continue Losartan 3. Continue Toprol XL, but increase dosage 4. Continue Eliquis appropriate dose (age>80, wt<60 kg) 5. D/C planning as per primary team Omega Field M.D.
[2018-06-17] MEDS ORDERED: amLODIPine BESYLATE 5 MG TABLET (FP) PO SCH (08:15)
[2018-06-17] MEDS: LOSARTAN POTASSIUM 50 MG TABLET (FP) PO SCH (10:21)
[2018-06-17] MEDS: NAPH,MB-DB/K PH,MBDB POWDER PACKET PO SCH (10:21)
[2018-06-17] MEDS: APIXABAN 2.5 MG TABLET PO SCH (10:21)
[2018-06-17] MEDS: RANITIDINE HCL 150 MG TABLET (FP) PO SCH (10:21)
[2018-06-17] MEDS: MUPIROCIN 2% TOPICAL OINTMENT FOR DECOLONIZATION NS SCH (10:22)
--- NOTE | 2018-06-17 12:14 | PN ---
Progress Note, Physician Chief Complaint: Patient seen , asymptomatic, was able to ambulate without any balance disturbance. Sh pierre is eating well - Current Medication List Current Medications: Active Medications Amlodipine Besylate (Norvasc -) 5 mg PO DAILY [facility] Last Admin: 06/17/18 10:22 Dose: 5 mg Apixaban (Eliquis -) 2.5 mg PO BID [facility] Last Admin: 06/17/18 10:21 Dose: 2.5 mg Chlorhexidine Gluconate (Hibiclens For Decolonization -) 1 applic TP HS [facility] Last Admin: 06/16/18 21:27 Dose: 1 applic Losartan Potassium (Cozaar -) 100 mg PO DAILY [facility] Last Admin: 06/17/18 10:21 Dose: 100 mg Metoprolol Succinate (Toprol Xl -) 100 mg PO DAILY [facility] Last Admin: 06/17/18 10:22 Dose: 100 mg Mupirocin (Bactroban Ointment (For Decolonization) -) 1 applic NS BID [facility] Stop: 06/19/18 21:59 Last Admin: 06/17/18 10:22 Dose: 1 applic Potassium Phos/Sodium Phos (Phos-Nak Packet -) 1 packet PO DAILY [facility] Last Admin: 06/17/18 10:21 Dose: 1 packet Ranitidine HCl (Zantac -) 150 mg PO DAILY [facility] Last Admin: 06/17/18 10:21 Dose: 150 mg - Objective Vital Signs: Vital Signs Temperature 98.2 F 06/17/18 10:00 Pulse Rate 67 06/17/18 12:00 Respiratory Rate 20 06/17/18 12:00 Blood Pressure 121/62 06/17/18 12:00 O2 Sat by Pulse Oximetry (%) 100 06/17/18 08:00 Constitutional: Yes: No Distress, Calm Eyes: Yes: Conjunctiva Clear, EOM Intact HENT: Yes: Atraumatic, Normocephalic Neck: Yes: Supple, Trachea Midline Cardiovascular: Yes: Regular Rate and Rhythm, S1, S2 Respiratory: Yes: Regular, CTA Bilaterally Gastrointestinal: Yes: Normal Bowel Sounds, Soft Genitourinary: Yes: WNL Breast(s): Yes: WNL Edema: No Peripheral Pulses WNL: Yes Psychiatric: Yes: Alert, Oriented Labs: CBC, BMP 06/17/18 05:30 06/17/18 05:30 INR, PTT INR 0.93 (0.83-1.09) 06/14/18 03:15 Problem List - Problems (1) Acute hyponatremia Assessment/Plan: NA 136, corrected now with Na tablets, blood pressure was increased during the past 24 hours Mg Phos, and Ca being corrected Code(s): E87.1 - HYPO-OSMOLALITY AND HYPONATREMIA (2) Atrial fibrillation with RVR Assessment/Plan: continue Toprol XL 25 mg daily currently HR is controlled ECHO unchanged compared to baseline Code(s): I48.91 - UNSPECIFIED ATRIAL FIBRILLATION (3) Altered mental status Assessment/Plan: resolved Code(s): R41.82 - ALTERED MENTAL STATUS, UNSPECIFIED Qualifiers: Altered mental status type: disorientation Qualified Code(s): R41.0 - Disorientation, unspecified (4) CAD (coronary artery disease) Assessment/Plan: in NSR , was started on Eliquis correct lytes Code(s): I25.10 - ATHSCL HEART DISEASE OF [place] CORONARY ARTERY W/O ANG PCTRS Qualifiers: Coronary Disease-Associated Artery/Lesion type: [place] artery [place] vs. transplanted heart: [place] heart Associated angina: without angina Qualified Code(s): I25.10 - Atherosclerotic heart disease of [place] coronary artery without angina pectoris (5) Hypocalcemia Assessment/Plan: corrected Code(s): E83.51 - HYPOCALCEMIA (6) Hypomagnesemia Assessment/Plan: being corrected Code(s): E83.42 - HYPOMAGNESEMIA (7) Seizure Assessment/Plan: on Keppra, Keppra level pending episode no repeated, restarted diet Code(s): R56.9 - UNSPECIFIED CONVULSIONS Assessment/Plan 83 yo female admitted for acute symptomatic Hyponatremia associated with seizures had her electrolytes corrected. Her hyponatremia was caused by administration of Golytely in preparation of her colonoscopy.She will be discharged today
[2018-06-17 12:18] VITALS: TEMP 98.1
--- NOTE | 2018-06-17 12:19 | DS ---
Physical Examination Vital Signs: Vital Signs Temperature 98.2 F 06/17/18 10:00 Pulse Rate 67 06/17/18 12:00 Respiratory Rate 20 06/17/18 12:00 Blood Pressure 121/62 06/17/18 12:00 O2 Sat by Pulse Oximetry (%) 100 06/17/18 08:00 Constitutional: Yes: No Distress, Calm Eyes: Yes: Conjunctiva Clear, EOM Intact HENT: Yes: Atraumatic, Normocephalic Neck: Yes: Supple, Trachea Midline Cardiovascular: Yes: Regular Rate and Rhythm, S1, S2 Respiratory: Yes: Regular, CTA Bilaterally Gastrointestinal: Yes: Normal Bowel Sounds, Soft, Abdomen, Obese. No: Hepatomegaly, Splenomegaly Breast(s): Yes: WNL Musculoskeletal: Yes: WNL Edema: No Peripheral Pulses WNL: No Neurological: Yes: Alert, Oriented Psychiatric: Yes: Alert, Oriented Labs: CBC, BMP 06/17/18 05:30 06/17/18 05:30 Discharge Summary Reason For Visit: ACUTE HYPONATREMIA SEIZURE Current Active Problems Acute hyponatremia (Acute) Altered mental status (Acute) Atrial fibrillation with RVR (Acute) Cerebral hyponatremia (Acute) Dehydration (Acute) Hyperlipidemia (Acute) Hypocalcemia (Acute) Hypomagnesemia (Acute) Hyponatremia with normal extracellular fluid volume (Acute) Seizure (Acute) Word finding difficulty (Acute) Other Procedures: iv fluids. CT scan of head Hospital Course: 83 yo female was admitted for hyponatremia associated with seizures. The symptoms developed after the administration of Golytely for colonoscopy preparation. Eboni patient is living alone and fully independenta and efficient, very active physically. She is clinically back to her baseline and ready to be discharged, All her electrolytes wee corrected. She developed Atrial fibrillation for which she was placed on Eliquis . Her HR is controlled now. Condition: Good - Instructions Referrals: Marcelle Mullen MD [Primary Care Provider] - - Home Medications Comprehensive Discharge Medication List: Ambulatory Orders Amlodipine Besylate [Norvasc -] 10 mg PO DAILY 04/18/14 Metoprolol Succinate [Toprol XL -] 25 mg PO DAILY 04/18/14 Losartan Potassium 100 mg PO DAILY 02/15/17 Alprazolam [Xanax] 0.25 mg PO Q8H PRN #0 tablet MDD 0.75 mg 02/18/17 Cyanocobalamin [Vitamin B12 -] 1,000 mcg PO DAILY tablet 02/18/17 Aspirin [ASA -] 81 mg PO DAILY 06/14/18
[2018-06-17 12:21] VITALS: BP 143/71; PULSE 73
--- NOTE | 2018-06-17 13:41 | PN ---
Progress Note, Physician History of Present Illness: Pt seen and examined at bedside. She is awake and alert. She says she feels well. - Current Medication List Current Medications: Active Medications Amlodipine Besylate (Norvasc -) 5 mg PO DAILY [facility] Last Admin: 06/17/18 10:22 Dose: 5 mg Apixaban (Eliquis -) 2.5 mg PO BID [facility] Last Admin: 06/17/18 10:21 Dose: 2.5 mg Chlorhexidine Gluconate (Hibiclens For Decolonization -) 1 applic TP HS [facility] Last Admin: 06/16/18 21:27 Dose: 1 applic Levetiracetam (Keppra -) 500 mg PO BID [facility] Losartan Potassium (Cozaar -) 100 mg PO DAILY [facility] Last Admin: 06/17/18 10:21 Dose: 100 mg Metoprolol Succinate (Toprol Xl -) 100 mg PO DAILY [facility] Last Admin: 06/17/18 10:22 Dose: 100 mg Mupirocin (Bactroban Ointment (For Decolonization) -) 1 applic NS BID [facility] Stop: 06/19/18 21:59 Last Admin: 06/17/18 10:22 Dose: 1 applic Potassium Phos/Sodium Phos (Phos-Nak Packet -) 1 packet PO DAILY [facility] Last Admin: 06/17/18 10:21 Dose: 1 packet Ranitidine HCl (Zantac -) 150 mg PO DAILY [facility] Last Admin: 06/17/18 10:21 Dose: 150 mg - Objective Vital Signs: Vital Signs Temperature 98.1 F 06/17/18 12:00 Pulse Rate 73 06/17/18 12:00 Respiratory Rate 20 06/17/18 12:00 Blood Pressure 143/71 06/17/18 12:00 O2 Sat by Pulse Oximetry (%) 100 06/17/18 08:00 Constitutional: Yes: Calm Eyes: Yes: Conjunctiva Clear HENT: Yes: Atraumatic Cardiovascular: Yes: S1, S2 Respiratory: Yes: CTA Bilaterally Gastrointestinal: Yes: Soft Genitourinary: Yes: WNL Musculoskeletal: Yes: WNL Edema: No Neurological: Yes: Oriented Psychiatric: Yes: Oriented Labs: CBC, BMP 06/17/18 05:30 06/17/18 05:30 INR, PTT INR 0.93 (0.83-1.09) 06/14/18 03:15 Problem List - Problems (1) Acute hyponatremia Code(s): E87.1 - HYPO-OSMOLALITY AND HYPONATREMIA (2) Altered mental status Code(s): R41.82 - ALTERED MENTAL STATUS, UNSPECIFIED Qualifiers: Altered mental status type: disorientation Qualified Code(s): R41.0 - Disorientation, unspecified (3) Dehydration Code(s): E86.0 - DEHYDRATION (4) Hyperlipidemia Code(s): E78.5 - HYPERLIPIDEMIA, UNSPECIFIED Qualifiers: Hyperlipidemia type: pure hypercholesterolemia Qualified Code(s): E78.00 - Pure hypercholesterolemia, unspecified; E78.0 - Pure hypercholesterolemia (5) HTN (hypertension) Code(s): I10 - ESSENTIAL (PRIMARY) HYPERTENSION Qualifiers: Hypertension type: essential hypertension Qualified Code(s): I10 - Essential (primary) hypertension Assessment/Plan Current Medications Generic Name Dose Route Start Last Admin Trade Name Freq PRN Reason Stop Dose Admin Amlodipine Besylate 5 mg 06/17/18 08:15 06/17/18 10:22 Norvasc - PO 5 mg DAILY [facility] Administration Apixaban 2.5 mg 06/14/18 22:00 06/17/18 10:21 Eliquis - PO 2.5 mg BID [facility] Administration Chlorhexidine Gluconate 1 applic 06/14/18 22:00 06/16/18 21:27 Hibiclens For Decolonization - TP 1 applic HS [facility] Administration Levetiracetam 500 mg 06/17/18 22:00 Keppra - PO BID [facility] Losartan Potassium 100 mg 06/14/18 10:00 06/17/18 10:21 Cozaar - PO 100 mg DAILY [facility] Administration Metoprolol Succinate 100 mg 06/17/18 08:15 06/17/18 10:22 Toprol Xl - PO 100 mg DAILY [facility] Administration Mupirocin 1 applic 06/14/18 22:00 06/17/18 10:22 Bactroban Ointment (For Decolonization) - NS 06/19/18 21:59 1 applic BID [facility] Administration Potassium Phos/Sodium Phos 1 packet 06/16/18 10:00 06/17/18 10:21 Phos-Nak Packet - PO 1 packet DAILY [facility] Administration Ranitidine HCl 150 mg 06/15/18 10:00 06/17/18 10:21 Zantac - PO 150 mg DAILY [facility] Administration Impression 1. Hyponatremia 2. HTN 3. seizure 4. anxiety 5. change in mental status Plan - sodium has normalized - can resume regular diet and fluid intake - repeat labs as outpt - can see as outpt as needed Dr Rodriges
[2018-06-17] MEDS ORDERED: levETIRAcetam 500 MG TABLET (FP) PO SCH (22:00)
== END 2018-06-17 14:04 | disposition home or self-care (01) | DRG 640 ==
LOC: JER 01:30 → JERBED 04:22 → UNDOADMIN 04:38 → JERBED 04:38 → JICU 21:31
PROVIDERS: ADMIT Internal Medicine; ATTEND Internal Medicine
DX: E87.1 Hypo-osmolality and hyponatremia (principal); G93.41 Metabolic encephalopathy; G92 Toxic encephalopathy; I25.10 Atherosclerotic heart disease of native coronary artery without angina pectoris; E83.51 Hypocalcemia; E78.5 Hyperlipidemia, unspecified; I10 Essential (primary) hypertension; E86.0 Dehydration; F41.9 Anxiety disorder, unspecified; E83.42 Hypomagnesemia; R56.9 Unspecified convulsions; I48.0 Paroxysmal atrial fibrillation; I25.119 Atherosclerotic heart disease of native coronary artery with unspecified angina pectoris; E87.2 Acidosis; I44.7 Left bundle-branch block, unspecified
CPT/HCPCS: 36415; 36600; 70450-TC; 71045-TC-FY; 80048; 80053; 80177; 80307; 81003; 81015; 82375; 82436; 82465; 82533; 82550; 82553; 82570; 82803; 83050; 83605; 83718; 83721; 83735; 83930; 83935; 84100; 84133; 84300; 84443; 84478; 84484; 85025; 85610; 86850; 86900; 86901; 87086; 93005; 93010; 93306-TC; 97116-GP; 97161-GP; 99285-25; J2597; J7030

== ENCOUNTER 2019-01-24 07:34 | Day surgery (SDC) | payer OTHER, MEDICARE ==
[2019-01-19 14:17] VITALS: BMI 21.4
[2019-01-24] MEDS ORDERED: PROPOFOL 20 ML ONE ×4 (07:48)
[2019-01-24] MEDS ORDERED: LIDOCAINE HCL/PF 2% SDV 5ML VIAL ONE ×2 (07:49→07:59)
[2019-01-24] MEDS ORDERED: ePHEDrine SULFATE 50 MG/1 ML AMPULE ONE (08:28)
[2019-01-24 09:17] VITALS: TEMP 97.9
[2019-01-24 09:44] VITALS: BP 110/58; PULSE 72
--- NOTE | 2019-01-26 15:32 | PATH ---
Surgical Pathology Report Patient Name: IRA JANUARY [facility]. Rec. #: [id number] /Age/Gender: 1935 (Age: 83) / F Account: [id number] Location: [facility] Taken: 01/24/2019 Received: 01/24/2019 Reported: 01/26/2019 Physicians: Richi Bustos M.D. Specimen(s) Received A: BX POLYP RIGHT COLON B: HOT SNARE POLYPECTOMY RIGHT COLON VILLOUS LESION Clinical History Hx of polyps. Postoperative diagnosis: Polyps, diverticulosis Final Diagnosis A. RIGHT COLON, POLYP, BIOPSY: TUBULAR ADENOMA. B. RIGHT COLON, VILLOUS, LESION, HOT SNARE POLYPECTOMY: FRAGMENTS OF TUBULAR ADENOMA. Electronically Signed Yuly Chanel M.D. Gross Description A. Received in formalin, labeled " bx polyp right colon" are three piece of norman tissue, ranging from 0.2-0.3 cm in greatest dimension. Entirely submitted in one cassette. B. Received in formalin, labeled, "hot snare polypectomy right colon villous lesion" are multiple pieces of norman tissue ranging from 0.4-0.7 cm in greatest dimension, with an aggregate of 1.2 x 1 x 0.2 cm. Entirely submitted in one cassette. AE/01/25/2019 ebram/01/25/2019
== END 2019-01-24 09:35 | disposition home or self-care (01) ==
LOC: FASU 07:34
PROVIDERS: ATTEND Internal Medicine Gastroenterology
PROC: 3E0H8GC Introduction of Other Therapeutic Substance into Lower GI, Via Natural or Artificial Opening Endoscopic (ICD-10-PCS; 2019-01-24)
PROC: 0DBK8ZX Excision of Ascending Colon, Via Natural or Artificial Opening Endoscopic, Diagnostic (ICD-10-PCS; principal; 2019-01-24 08:25)
DX: Z86.010 Personal history of colon polyps (principal); Z80.0 Family history of malignant neoplasm of digestive organs; D12.2 Benign neoplasm of ascending colon; K57.30 Diverticulosis of large intestine without perforation or abscess without bleeding
CPT/HCPCS: 88305-TC

== ENCOUNTER 2019-07-16 07:33 | Day surgery (SDC) | payer OTHER, MEDICARE ==
[2019-07-12 13:04] VITALS: BMI 21.4
[2019-07-16] MEDS ORDERED: PROPOFOL 20 ML ONE ×3 (07:49)
[2019-07-16] MEDS ORDERED: LIDOCAINE HCL/PF 2% SDV 5ML VIAL ONE (07:49)
[2019-07-16 09:01] VITALS: TEMP 98.2
[2019-07-16 09:22] VITALS: BP 105/41; PULSE 60
--- NOTE | 2019-07-19 15:24 | PATH ---
Surgical Pathology Report Patient Name: IRA JANUARY [facility]. Rec. #: [id number] /Age/Gender: 1935 (Age: 84) / F Account: [id number] Location: [facility] Taken: 07/16/2019 Received: 07/18/2019 Reported: 07/19/2019 Physicians: Richi Bustos M.D. Specimen(s) Received A: MID RIGHT COLON - PRIOR POLYPECTOMY SITE B: POLYP PROXIMAL RIGHT COLON C: RECTUM HOT SNARE POLYPECTOMY Clinical History History of polyps Postoperative diagnosis: Colon polyps Final Diagnosis A. MID COLON, RIGHT, PRIOR POLYPECTOMY SITE, BIOPSY: COLONIC MUCOSA WITH MILD SUPERFICIAL HYPERPLASTIC FEATURES. B. PROXIMAL COLON, RIGHT, POLYP, BIOPSY: POLYPOID COLONIC MUCOSA WITH MILD SUPERFICIAL HYPERPLASTIC FEATURES. C. RECTUM, HOT SNARE POLYPECTOMY: POLYPOID SQUAMOUS MUCOSA AND UNDERLYING STROMA SUGGESTIVE OF FIBROEPITHELIAL POLYP. Electronically Signed Ranjana Zhang M.D. Gross Description A. Received in formalin, labeled "biopsy right colon prior polypectomy site" is a norman, irregular portion of soft tissue measuring 0.4 cm. in greatest dimension. The specimen is submitted in toto in one cassette. B. Received in formalin, labeled "biopsy polyp proximal right colon" is a norman, irregular portion of soft tissue measuring 0.6 cm. in greatest dimension. The specimen is submitted in toto in one cassette. C. Received in formalin, labeled "hot snare polypectomy rectum" is a norman, polypoid portion of soft tissue measuring 0.7 cm. in greatest dimension. The specimen is submitted in toto in one cassette. 07/18/2019 saudi07/18/2019
== END 2019-07-16 09:10 | disposition home or self-care (01) ==
LOC: FASU-ENDO 07:33
PROVIDERS: ATTEND Internal Medicine Gastroenterology
PROC: 0DBP8ZX Excision of Rectum, Via Natural or Artificial Opening Endoscopic, Diagnostic (ICD-10-PCS; 2019-07-16)
PROC: 0DBK8ZX Excision of Ascending Colon, Via Natural or Artificial Opening Endoscopic, Diagnostic (ICD-10-PCS; 2019-07-16)
PROC: 0DBK8ZX Excision of Ascending Colon, Via Natural or Artificial Opening Endoscopic, Diagnostic (ICD-10-PCS; principal; 2019-07-16 08:20)
DX: Z86.010 Personal history of colon polyps (principal); Z80.0 Family history of malignant neoplasm of digestive organs; D12.8 Benign neoplasm of rectum; K63.89 Other specified diseases of intestine

== ENCOUNTER 2019-10-24 12:46 | Observation (INO) | payer OTHER, MEDICARE ==
--- NOTE | 2019-10-24 13:09 | PDOC ---
History of Present Illness - General Chief Complaint: Shortness of Breath Stated Complaint: SOB Time Seen by Provider: 10/24/19 13:08 - History of Present Illness Initial Comments: 10/24/19 13:32 84 yo M PMH HTN (on losartan, amlodipine, and metoprolol), benign colonic polyp excised December 2018, prior episode of hyponatremia 2/2 bowel prep resulting in seizure, paroxysmal atrial fibrillation on Eliquis, presenting with SOB. Reports having two episodes of SOB yesterday after driving home from bowling, non-exertional, lasting minutes, self-resolving, non-radiating, without any associated chest pain or N/V. Does state that she had concomitant "lightheadedness", which she describes as "feeling off". Specifically denies feeling like she was going to pass out, like she could not get her balance, or like the room was spinning. She had another two episodes today, which led her to go to [facility] urgent care. There, she was noted to have a BGM of 58 and EKG changes, so she was sent to the ED via ambulance. Currently, she feels completely back to baseline. Does state that she took two baby aspirin yesterday and another two today. At baseline, patient is very independent and active, able to do all ADLs. Past History - Past Medical History Allergies/Adverse Reactions: Allergies Allergy/AdvReac Type Severity Reaction Status Date / Time Sulfa (Sulfonamide Allergy Unknown Verified 10/24/19 13:49 Antibiotics) [Sulfa(Sulfonamide Antibiotics)] Home Medications: Ambulatory Orders Losartan Potassium 100 mg PO DAILY 02/15/17 Amlodipine Besylate [Norvasc -] 10 mg PO DAILY tablet 06/17/18 Apixaban [Eliquis -] 2.5 mg PO BID 30 Days #60 tablet 06/17/18 Metoprolol Succinate [Toprol XL -] 50 mg PO DAILY tab.sr.24h 06/17/18 Anemia: No Asthma: No Cancer: No Cardiac Disorders: Yes (A-Fib) CVA: No COPD: No CHF: No Dementia: No Diabetes: No GI Disorders: No (H/O COLON POLYPS;SISTER HAD COLON CA IN HER 70'S) Disorders: No HTN: Yes Hypercholesterolemia: No Liver Disease: No Seizures: Yes (06/2018 after colonoscopy prep) Thyroid Disease: No - Surgical History Abdominal Surgery: Yes (Hernia repair) Appendectomy: No Cardiac Surgery: No Cholecystectomy: No Lung Surgery: No Neurologic Surgery: No Orthopedic Surgery: Yes (Sheela Garcia) - Immunization History Immunization Up to Date: Yes - Psycho Social/Smoking Cessation Hx Smoking Status: No Smoking History: Never smoked Have you smoked in the past 12 months: No Number of Cigarettes Smoked Daily: 0 Hx Alcohol Use: No Drug/Substance Use Hx: No Substance Use Type: None Hx Substance Use Treatment: No Review of Systems - Review of Systems Able to Perform ROS?: Yes Comments:: 10/24/19 13:39 GENERAL/CONSTITUTIONAL: denies fever, chills, diaphoresis, generalized weakness , malaise, loss of appetite, weight change HEAD, EYES, EARS, NOSE AND THROAT: denies rhinorrhea, nasal congestion, throat pain, throat swelling, difficulty swallowing, mouth swelling, ear pain, eye pain , visual changes NEUROLOGIC: denies headache, focal weakness or paresthesias, dizziness, unsteady gait, seizure, mental status changes, bladder or bowel incontinence CARDIOVASCULAR: endorses "lightheadedness" which she describes as "feeling off" . Denies chest pain, syncope, palpitations, irregular heart rate, peripheral edema RESPIRATORY: endorses SOB which has since resolved. Denies cough, dyspnea with exertion, orthopnea, wheezing, stridor, hemoptysis GASTROINTESTINAL: denies abdominal pain, abdominal distension, nausea, vomiting , diarrhea, constipation, melena, hematochezia GENITOURINARY: denies dysuria, frequency, urgency, hesitancy, hematuria, flank pain, genital pain MUSCULOSKELETAL: denies myalgia, arthralgia, joint swelling, back pain, neck pain SKIN: denies rash, itching, pallor HEMATOLOGIC/IMMUNOLOGIC: denies easy bleeding, easy bruising, lymphadenopathy, frequent infections ENDOCRINE: denies unexplained weight gain, unexplained weight loss, heat intolerance, cold intolerance PSYCHIATRIC: denies anxiety, depression, suicidal or homicidal ideation, hallucinations *Physical Exam - Physical Exam 10/24/19 13:41 GENERAL: Awake, alert, and fully oriented, in no acute distress. HEAD: Normal with no signs of trauma. EYES: Pupils equal, round and reactive to light, extraocular movements intact, sclera anicteric, conjunctiva clear. No lid lag. EARS, NOSE, THROAT: Ears normal, nares patent, oropharynx clear without exudates. NECK: Normal range of motion, supple without lymphadenopathy, JVD, or masses. LUNGS: Breath sounds equal, clear to auscultation bilaterally. No wheezes, and no crackles. No accessory muscle use. HEART: Bradycardic in the 50s, regular rhythm, normal S1 and S2 without murmur, rub or gallop. ABDOMEN: Soft, nontender, non-distended, normoactive bowel sounds, negative guarding, negative rebound MUSCULOSKELETAL: Normal range of motion at all joints. No bony deformities or tenderness. No CVA tenderness. UPPER EXTREMITIES: 2+ pulses, warm, well-perfused. No cyanosis. No clubbing. Cap refill <2 seconds. No peripheral edema. LOWER EXTREMITIES: 2+ pulses, warm, well-perfused. No calf tenderness. No peripheral edema. NEUROLOGICAL: Cranial nerves II-XII intact. Normal speech. Normal gait. PSYCHIATRIC: Cooperative. Good eye contact. Appropriate mood and affect. SKIN: Warm, dry Heart Score/ECG Review - History History: Moderately suspicious - Electrocardiogram EKG: Non specific repolarization disturbance - Age Age: >/= 65 - Risk Factors Risk Factors Heart Score: Yes Hx Hypertension Based on the list above the patient has:: 1-2 risk factors - Troponin Troponin: </= normal limit - Score Heart Score - Total: 5 ED Treatment Course - LABORATORY CBC & Chemistry Diagram: 10/24/19 13:55 10/24/19 13:55 Medical Decision Making - Medical Decision Making 10/24/19 13:42 84 yo F PMH HTN, atrial fibrillation, p/w SOB and "feeling off". R/o ACS. - BGM 92 here - CBC, CMP - EKG, trop - CXR - coags [facility] EKG at 1202 with sinus bradycardia at 56 bpm, LBBB, ST segment elevation in V2-V3. Elevations were not present in prior EKG from 2018. 10/24/19 13:57 EKG with sinus bradycardia at 56 bpm, LBBB, no longer with ST segment elevation. Looks similar to 2018 EKG. 10/24/19 14:[address] Garcia from cardiology, will plan to admit for tele obs. 10/24/19 16:01 CXR with degenerative changes and old L shoulder trauma, no acute abnormalities. Discharge - Discharge Information Problems reviewed: Yes Clinical Impression/Diagnosis: SOB (shortness of breath) - Follow up/Referral Referrals: Marcelle Mullen MD [Primary Care Provider] - - Patient Discharge Instructions - Post Discharge Activity
[2019-10-24 13:49] VITALS: BMI 23.4
[2019-10-24 14:05] LABS: BASO % 0.4 % (0-2.0); HEMATOCRIT 35.5 % (32.4-45.2); LYMPH % 33.3 % (8-40); MCH 31.2 pg (25.7-33.7); MCHC 33.7 g/dl (32.0-36.0); MEAN CELL VOLUME 92.5 fl (80-96); MEAN PLT VOLUME 7.4 fl (7.5-11.1); NEUT % 57.3 % (42.8-82.8); PLATELET COUNT 307 K/MM3 (134-434); RBC 3.84 M/mm3 (3.60-5.2); RDW 13.3 % (11.6-15.6); WHITE BLOOD COUNT 5.7 K/mm3 (4.0-10.0)
[2019-10-24 14:18] LABS: INR 1.03 (0.83-1.09); PROTHROMBIN TIME (PATIENT) 12.2 SEC (9.7-13.0)
[2019-10-24 14:21] LABS: ACTIVATED PTT 35.2 SECONDS (25.2-36.5)
[2019-10-24 14:42] LABS: ALBUMIN 3.3 g/dl (3.4-5.0); ALK PHOS 81 U/L (45-117); ANION GAP 5 MMOL/L (8-16); BILIRUBIN,TOTAL 0.4 mg/dL (0.2-1); BLOOD UREA NITROGEN 16.3 mg/dL (7-18); CALCIUM 9.2 mg/dL (8.5-10.1); CHLORIDE 107 mmol/L (98-107); CO2 28 mmol/L (21-32); CREATININE 0.7 mg/dL (0.55-1.3); GLUCOSE,RANDOM 95 mg/dL (74-106); POTASSIUM 4.4 mmol/L (3.5-5.1); SGOT/AST 16 U/L (15-37); SGPT/ALT 24 U/L (13-61); SODIUM 141 mmol/L (136-145); TOT PROT 6.5 g/dl (6.4-8.2)
--- NOTE | 2019-10-24 16:22 | PDOC ---
Documentation entered by Carmel Porras SCRIBE, acting as scribe for Heydi Wallace MD. Heydi Wallace MD: This documentation has been prepared by the Chiquita gonzales Nirvannie, SCRIBE, under my direction and personally reviewed by me in its entirety. I confirm that the documentation accurately reflects all work, treatment, procedures, and medical decision making performed by me. Attending Attestation - Resident Resident Name: Shantel Strauss - ED Attending Attestation I have performed the following: I have examined & evaluated the patient, The case was reviewed & discussed with the resident, I agree w/resident's findings & plan, Exceptions are as noted - HPI HPI: 10/24/19 14:36 The patient is a 84 year old male, with a significant past medical history of hypertension, benign colonic polyp excised December 2018, hyponatremia after bowel prep resulting in seizure, Paroxysmal Afib (on Eliquis), who presents to the emergency department with shortness of breath. As per patient, she experienced 2 episodes of shortness of breath. He notes 2 recurrent episodes today thus she went to Urgent Care. She was found to have a BGM of 58 with EKG changes, thus she was advised to report to the ED for further evaluation. He denies any recent nausea, vomit, diarrhea or constipation. He denies any recent dysuria, frequency, urgency or hematuria. Allergies: Sulfa - Physicial Exam PE: 10/24/19 16:18 awake alert lungs clear bilat heart rrr no mrg abd soft nt nd ext wwp no edema. no calf tenderness. alert oriented x 3. - Medical Decision Making 10/24/19 16:18 84 yo F with h/o afib, on eliquis, htn , here with c/o sob. pt describing intermittent sob while in car today. states lasted only few minutes. denies recent cough or congestion. no fever. no associated chest pressure or pain. resolved spontanously. no h/o pe or dvt. no other complaints. was seen at [facility], and sent to ed for evaluation. on exam pt normal heart and lung exam differential anemia, electrolyte abnoramlity, chf, infection such as pna, atypical angina, intermittent afib with RVR pt ekg with LBBB, ( old) no acute change. no st elevation per scarbosa criteria. comparison to EKG 06/14/18 plan labs ekg trop will admi to telemetry. pt general accounting manager is DR Jerry, d/w group will see inhouse. Heart Score/ECG Review #1 General ECG Interpretation: Sinus Rhythm, Normal Intervals, No acute ischemic changes Compared to previous ECG there are: Other (LBBB old,)
--- NOTE | 2019-10-24 19:11 | CON.CARD ---
Consult Consult Specialty:: Cardiology Referred by:: Emergency Medicine Reason for Consultation:: PAF - History of Present Illness Chief Complaint: Dyspnea History of Present Illness: The patient is a 84 year old female, with a significant past medical history of hypertension, 1 vessel CAD, benign colonic polyp excised December 2018, hyponatremia after bowel prep resulting in seizure, Paroxysmal Afib (on Eliquis) , who presents to the emergency department with shortness of breath. She experienced 2 episodes of shortness of breath with lightheadedness at rest lasting few minutes spontaneously resolving, went to [facility]. She was found to have a BGM of 58 with EKG changes, thus she was advised to report to the ED for further evaluation. She denies chest pain, palpitations, true syncope, orthopnea, PND or LE edema. Confirms compliance with meds. - History Source History Provided By: Patient Limitations to Obtaining History: No Limitations - Past Medical History Cardio/Vascular: Yes: CAD, HTN Psych: Yes: Anxiety - Alcohol/Substance Use Hx Alcohol Use: No History of Substance Use: reports: None - Smoking History Smoking history: Never smoked Have you smoked in the past 12 months: No Aproximately how many cigarettes per day: 0 - Social History History of Recent Travel: No Home Medications - Allergies Allergies/Adverse Reactions: Allergies Allergy/AdvReac Type Severity Reaction Status Date / Time Sulfa (Sulfonamide Allergy Unknown Verified 10/24/19 13:49 Antibiotics) [Sulfa(Sulfonamide Antibiotics)] - Home Medications Home Medications: Ambulatory Orders Losartan Potassium 100 mg PO DAILY 02/15/17 Amlodipine Besylate [Norvasc -] 10 mg PO DAILY tablet 06/17/18 Apixaban [Eliquis -] 2.5 mg PO BID 30 Days #60 tablet 06/17/18 Metoprolol Succinate [Toprol XL -] 50 mg PO DAILY tab.sr.24h 06/17/18 Review of Systems - Review of Systems Respiratory: reports: SOB Neurological: reports: Dizziness Vital Signs: Vital Signs Temperature 97.9 F 10/24/19 12:55 Pulse Rate 59 L 10/24/19 12:55 Respiratory Rate 21 H 10/24/19 12:55 Blood Pressure 177/68 H 10/24/19 12:55 O2 Sat by Pulse Oximetry (%) 100 10/24/19 12:55 Constitutional: Yes: No Distress, Calm, Thin Neck: Yes: Supple Respiratory: Yes: Regular, CTA Bilaterally Gastrointestinal: Yes: Normal Bowel Sounds, Soft Cardiovascular: Yes: Regular Rate and Rhythm JVD: No Carotid Bruit: No Heart Sounds: Yes: S1, S2 Edema: No - Other Data Labs, Other Data: CBC, BMP 10/24/19 13:55 10/24/19 13:55 INR, PTT INR 1.03 (0.83-1.09) 10/24/19 13:55 Troponin, BNP 10/24/19 13:55 Troponin I < 0.02 Troponin, BNP 10/24/19 13:55 Troponin I < 0.02 NSR @ 56 LBBB similar to previous Ejection Fraction %: LVEF > or = 40 % Problem List - Problems (1) Chronic anticoagulation Code(s): Z79.01 - DEMOLITION SPECIALIST (CURRENT) USE OF ANTICOAGULANTS (2) Paroxysmal atrial fibrillation Code(s): I48.0 - PAROXYSMAL ATRIAL FIBRILLATION (3) SOB (shortness of breath) Code(s): R06.02 - SHORTNESS OF BREATH (4) HTN (hypertension) Code(s): I10 - ESSENTIAL (PRIMARY) HYPERTENSION Qualifiers: Hypertension type: essential hypertension Qualified Code(s): I10 - Essential (primary) hypertension (5) Left bundle branch block Code(s): I44.7 - LEFT BUNDLE-BRANCH BLOCK, UNSPECIFIED Assessment/Plan 06/15/2018 Echo: Mild cLVH, normal LV and RV size and fxn, paradoxical septal motion c/w conduction abnl, mild pulm HTN, mild TR ASSESSMENT: 1. Episodes of dyspnea and light-headedness likely referable to 2. Paroxysmal atrial fibrillation with periods of RVR currently in sinus rhythm [id number] score of 4 on A/C 3. CAD angina pectoris 4. 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 HTN/HCVD 6. CLBBB 7. H/o symptomatic hyponatremia post bowel prep PLAN: 1. Telemetry monitoring to monitor arrhythmia burden, may benefit from outpatient arrhythmia monitoring to further assess arrhythmia burden 2. Continue Norvasc 10 qd, Losartan 100 qd, Toprol XL 50 qd with uptitration as needed 3. Continue Eliquis 2.5 bid (age>80, wt<60 kg) 4. D/C planning as per primary team
[2019-10-24] MEDS ORDERED: ZOLPIDEM TARTRATE 5 MG TABLET PO PRN (22:05)
--- NOTE | 2019-10-24 22:11 | HP ---
Admitting History and Physical - Admission Chief Complaint: palpitations and shortness of breath History of Present Illness: 84 yo female with PMH of HTN and Atrial fibrillation on Eliquis and Toprol developed over the past 2 days 2 episodes of palpitations associated with increased shortness of breath. In each case the patient developed the above after being active physically. She denies any chest pain. PAtient was seen in the Urgent Care and from there because of "EKG changes she was referred to ER. History Source: Patient Limitations to Obtaining History: No Limitations - Past Medical History Cardiovascular: Yes: AFIB, CAD, HTN Heme/Onc: Yes: B12 Deficiency Psych: Yes: Anxiety - Smoking History Smoking history: Never smoked Have you smoked in the past 12 months: No Aproximately how many cigarettes per day: 0 - Alcohol/Substance Use Hx Alcohol Use: No History of Substance Use: reports: None - Social History History of Recent Travel: No Home Medications - Allergies Allergies/Adverse Reactions: Allergies Allergy/AdvReac Type Severity Reaction Status Date / Time Sulfa (Sulfonamide Allergy Unknown Verified 10/24/19 13:49 Antibiotics) [Sulfa(Sulfonamide Antibiotics)] - Home Medications Home Medications: Ambulatory Orders Losartan Potassium 100 mg PO DAILY 02/15/17 Amlodipine Besylate [Norvasc -] 10 mg PO DAILY tablet 06/17/18 Apixaban [Eliquis -] 2.5 mg PO BID 30 Days #60 tablet 06/17/18 Metoprolol Succinate [Toprol XL -] 50 mg PO DAILY tab.sr.24h 06/17/18 Amlodipine Besylate [Norvasc -] 10 mg PO DAILY tablet 10/25/19 Apixaban [Eliquis -] 2.5 mg PO BID tablet 10/25/19 Losartan Potassium [Cozaar -] 100 mg PO DAILY tablet 10/25/19 Metoprolol Succinate [Toprol XL -] 50 mg PO DAILY tab.sr.24h 10/25/19 Review of Systems - Review of Systems Constitutional: reports: No Symptoms Eyes: reports: No Symptoms HENT: reports: No Symptoms Neck: reports: No Symptoms Cardiovascular: reports: Palpitations, Shortness of Breath Gastrointestinal: reports: No Symptoms Genitourinary: reports: No Symptoms Breasts: reports: No Symptoms Reported Physical Examination Vital Signs: Vital Signs Temperature 98.1 F 10/24/19 20:11 Pulse Rate 61 10/24/19 20:11 Respiratory Rate 17 10/24/19 20:11 Blood Pressure 161/67 10/24/19 20:11 O2 Sat by Pulse Oximetry (%) 97 10/24/19 21:03 Constitutional: Yes: No Distress Eyes: Yes: Conjunctiva Clear, EOM Intact HENT: Yes: Atraumatic, Normocephalic Neck: Yes: Supple, Trachea Midline Cardiovascular: Yes: Regular Rate and Rhythm, S1, S2 Respiratory: Yes: Regular, CTA Bilaterally Gastrointestinal: Yes: Normal Bowel Sounds, Soft. No: Hepatomegaly, Splenomegaly Extremities: No: Calf Tenderness Labs: CBC, BMP 10/24/19 13:55 10/24/19 13:55 Imaging - Results Chest X-ray: Other (rad by me : no pleural effusions, no masses) Problem List - Problems (1) Paroxysmal atrial fibrillation Assessment/Plan: monitor patient in telemetry Code(s): I48.0 - PAROXYSMAL ATRIAL FIBRILLATION (2) HTN (hypertension) Code(s): I10 - ESSENTIAL (PRIMARY) HYPERTENSION Qualifiers: Hypertension type: essential hypertension Qualified Code(s): I10 - Essential (primary) hypertension (3) CAD (coronary artery disease) Code(s): I25.10 - ATHSCL HEART DISEASE OF [place] CORONARY ARTERY W/O ANG PCTRS Qualifiers: Coronary Disease-Associated Artery/Lesion type: [place] artery [place] vs. transplanted heart: [place] heart Associated angina: without angina Qualified Code(s): I25.10 - Atherosclerotic heart disease of [place] coronary artery without angina pectoris
[2019-10-24] MEDS ORDERED: APIXABAN 5 MG TABLET ONE (22:32)
[2019-10-24] MEDS: APIXABAN 2.5 MG TABLET PO SCH (22:39)
[2019-10-25 09:38] VITALS: TEMP 97.8
--- NOTE | 2019-10-25 09:39 | PN ---
Progress Note, Physician History of Present Illness: Patient denies recurrent episodes of shortness of breath with lightheadedness. She denies chest pain, palpitations, true syncope, orthopnea, PND or LE edema. No events on telemetry. - Current Medication List Current Medications: Active Medications Amlodipine Besylate (Norvasc -) 10 mg PO DAILY [facility] Last Admin: 10/25/19 09:30 Dose: 10 mg Apixaban (Eliquis -) 2.5 mg PO BID [facility] Last Admin: 10/24/19 22:39 Dose: 2.5 mg Losartan Potassium (Cozaar -) 100 mg PO DAILY [facility] Last Admin: 10/25/19 09:29 Dose: 100 mg Metoprolol Succinate (Toprol Xl -) 50 mg PO DAILY [facility] Last Admin: 10/25/19 09:30 Dose: 50 mg Zolpidem Tartrate (Ambien -) 5 mg PO HS PRN PRN Reason: INSOMNIA - Objective Vital Signs: Vital Signs Temperature 97.8 F 10/25/19 09:37 Pulse Rate 64 10/25/19 09:37 Respiratory Rate 18 10/25/19 09:37 Blood Pressure 169/69 10/25/19 09:37 O2 Sat by Pulse Oximetry (%) 98 10/25/19 09:37 Constitutional: Yes: No Distress, Calm, Thin Neck: Yes: Supple Cardiovascular: Yes: Regular Rate and Rhythm Respiratory: Yes: Regular, CTA Bilaterally Gastrointestinal: Yes: Normal Bowel Sounds, Soft Edema: No Labs: CBC, BMP 10/24/19 13:55 10/24/19 13:55 INR, PTT INR 1.03 (0.83-1.09) 10/24/19 13:55 - ....Imaging EKG: Report Reviewed (Tele: NSR no PAF) Problem List - Problems (1) Chronic anticoagulation Code(s): Z79.01 - DIRECTOR REHABILITATION PROGRAM (CURRENT) USE OF ANTICOAGULANTS (2) Paroxysmal atrial fibrillation Code(s): I48.0 - PAROXYSMAL ATRIAL FIBRILLATION (3) SOB (shortness of breath) Code(s): R06.02 - SHORTNESS OF BREATH (4) HTN (hypertension) Code(s): I10 - ESSENTIAL (PRIMARY) HYPERTENSION Qualifiers: Hypertension type: essential hypertension Qualified Code(s): I10 - Essential (primary) hypertension (5) Left bundle branch block Code(s): I44.7 - LEFT BUNDLE-BRANCH BLOCK, UNSPECIFIED Assessment/Plan 10/25/2019 Echo: Normal LV and RV size and fxn, mild TR 06/15/2018 Echo: Mild cLVH, normal LV and RV size and fxn, paradoxical septal motion c/w conduction abnl, mild pulm HTN, mild TR ASSESSMENT: 1. Episodes of dyspnea and light-headedness likely referable to 2. Paroxysmal atrial fibrillation with periods of RVR currently in sinus rhythm [id number] score of 4 on A/C 3. CAD angina pectoris 4. 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 HTN/HCVD 6. CLBBB 7. H/o symptomatic hyponatremia post bowel prep PLAN: 1. Telemetry monitoring negative thus far for recurrent PAF, may benefit from outpatient arrhythmia monitoring to further assess arrhythmia burden 2. Continue Norvasc 10 qd, Losartan 100 qd, Toprol XL 50 qd with uptitration as needed 3. Continue Eliquis 2.5 bid (age>80, wt<60 kg) 4. D/C planning as per primary team, f/u with us in office
[2019-10-25] MEDS ORDERED: amLODIPine BESYLATE 10 MG TABLET (FP) PO SCH (10:00)
[2019-10-25] MEDS ORDERED: LOSARTAN POTASSIUM 50 MG TABLET (FP) PO SCH (10:00)
[2019-10-25] MEDS: APIXABAN 2.5 MG TABLET PO SCH (10:02)
--- NOTE | 2019-10-25 13:03 | ECHO ---
Name: IRA, JANUARY Exam:Adult Echocardiogram Study Date: 10/25/2019 10:02 AM Age: 84 yrs Height: 60 in Weight: 120 lb BSA: 1.5 m2 MMode/2D Measurements & Calculations IVSd: 1.1 cm Ao root diam: 1.8 cm LVIDd: 3.7 cm LA dimension: 3.1 cm LVIDs: 2.5 cm ACS: 1.6 cm LVPWd: 0.79 cm EDV(Teich): 58.0 ml LVOT diam: 1.7 cm ESV(Teich): 22.7 ml RV S Jose: 15.0 cm/sec Doppler Measurements & Calculations MV E max jose: 47.9 cm/sec Ao V2 max: 137.9 cm/sec MV A max jose: 117.5 cm/sec Ao max P.6 mmHg MV E/A: 0.41 Ao V2 mean: 87.8 cm/sec MV dec time: 0.25 sec Ao mean P.6 mmHg Ao V2 VTI: 29.1 cm ROSEANNA(I,D): 1.8 cm2 ROSEANNA(V,D): 1.5 cm2 LV V1 max P.6 mmHg MR max jose: 459.0 cm/sec LV V1 mean P.7 mmHg MR max P.3 mmHg LV V1 max: 94.8 cm/sec LV V1 mean: 59.0 cm/sec LV V1 VTI: 23.3 cm SV(LVOT): 52.4 ml TR max jose: 237.7 cm/sec TR max P.8 mmHg PA V2 max: 47.9 cm/sec Med Peak E' Jose: 5.2 cm/sec PA max P.92 mmHg Med E/e': 9.3 Lat Peak E' Jose: 4.4 cm/sec Lat E/e': 10.9 Procedure A complete two-dimensional transthoracic echocardiogram was performed (2D, M-mode, Doppler and color flow Doppler). Left Ventricle The left ventricular size, thickness and function are normal. The left ventricular ejection fraction is normal. Ejection Fraction = 55-60%. The left ventricular wall motion is normal. Right Ventricle The right ventricle is normal in size and function. Atria Normal left and right atrial size and function. Mitral Valve There is no mitral regurgitation noted. Tricuspid Valve There is mild tricuspid regurgitation. Right ventricular systolic pressure is normal. Aortic Valve No hemodynamically significant valvular aortic stenosis. No aortic regurgitation is present. Pulmonic Valve There is no pulmonic valvular regurgitation. Great Vessels The aortic root is normal size. Pericardium/Pleura There is no pericardial effusion. Interpretation Summary The left ventricular size, thickness and function are normal The right ventricle is normal in size and function. There is mild tricuspid regurgitation. MD Sacha Eid 10/25/2019 01:02 PM
--- NOTE | 2019-10-25 15:14 | EKG ---
Test Reason : Blood Pressure : / mmHG Vent. Rate : 056 BPM Atrial Rate : 056 BPM P-R Int : 156 ms QRS Dur : 134 ms QT Int : 452 ms P-R-T Axes : 070 -11 066 degrees QTc Int : 436 ms SINUS BRADYCARDIA LEFT BUNDLE BRANCH BLOCK ABNORMAL ECG WHEN COMPARED WITH ECG OF 14-JUN-2018 22:41, NO SIGNIFICANT CHANGE WAS FOUND Confirmed by DONNA BETTENCOURT MD ([id number]) on 10/25/2019 3:14:04 PM Referred By: Confirmed By:ODNNA BETTENCOURT MD
--- NOTE | 2019-10-25 15:54 | DS ---
Physical Examination Vital Signs: Vital Signs Temperature 97.8 F 10/25/19 09:37 Pulse Rate 64 10/25/19 09:37 Respiratory Rate 18 10/25/19 09:37 Blood Pressure 169/69 10/25/19 09:37 O2 Sat by Pulse Oximetry (%) 98 10/25/19 09:37 Constitutional: Yes: No Distress, Calm Eyes: Yes: Conjunctiva Clear, EOM Intact HENT: Yes: Atraumatic, Normocephalic Neck: Yes: Supple, Trachea Midline Cardiovascular: Yes: Pulse Irregular Respiratory: Yes: Regular, CTA Bilaterally Gastrointestinal: Yes: Normal Bowel Sounds, Soft. No: Hepatomegaly, Splenomegaly ...Rectal Exam: Yes: Deferred Breast(s): Yes: WNL Musculoskeletal: Yes: WNL Extremities: No: Calf Tenderness Edema: No Peripheral Pulses WNL: Yes Integumentary: Yes: WNL Neurological: Yes: Alert, Oriented ...Motor Strength: WNL Psychiatric: Yes: Alert, Oriented Labs: CBC, BMP 10/24/19 13:55 10/24/19 13:55 Discharge Summary Problems reviewed: Yes Reason For Visit: SOB Current Active Problems Chronic anticoagulation (Acute) Left bundle branch block (Acute) Paroxysmal atrial fibrillation (Acute) SOB (shortness of breath) (Acute) Hospital Course: 84 yo female who was admitted for episodes of FVR Paroxysmal Atrial Fibrillation , was monitored over night . During her stay there were no episodes of fast HR. She did not experience any chest pain. HEr blood work was normal. She will n be discharged and monitored as out patient. Health Concerns: arrhytmia Plan of Treatment: will have Holter as oupatient Condition: Stable - Instructions Diet, Activity, Other Instructions: Follow up with Cardiology or with me within next 7 days Referrals: Marcelle Mullen MD [Primary Care Provider] - - Home Medications Comprehensive Discharge Medication List: Ambulatory Orders Losartan Potassium 100 mg PO DAILY 02/15/17 Amlodipine Besylate [Norvasc -] 10 mg PO DAILY tablet 06/17/18 Apixaban [Eliquis -] 2.5 mg PO BID 30 Days #60 tablet 06/17/18 Metoprolol Succinate [Toprol XL -] 50 mg PO DAILY tab.sr.24h 06/17/18 Amlodipine Besylate [Norvasc -] 10 mg PO DAILY tablet 10/25/19 Apixaban [Eliquis -] 2.5 mg PO BID tablet 10/25/19 Losartan Potassium [Cozaar -] 100 mg PO DAILY tablet 10/25/19 Metoprolol Succinate [Toprol XL -] 50 mg PO DAILY tab.sr.24h 10/25/19
[2019-10-25 16:20] VITALS: BP 159/70; PULSE 65
== END 2019-10-25 15:05 | disposition home or self-care (01) ==
LOC: JER 12:46 → SUPCPDRO 12:46 → JERBED 15:05
PROVIDERS: ADMIT Internal Medicine; ATTEND Internal Medicine
DX: R06.02 Shortness of breath (principal); I44.7 Left bundle-branch block, unspecified; I48.0 Paroxysmal atrial fibrillation; Z79.01 Long term (current) use of anticoagulants; I25.119 Atherosclerotic heart disease of native coronary artery with unspecified angina pectoris; Z86.69 Personal history of other diseases of the nervous system and sense organs; Z88.2 Allergy status to sulfonamides
CPT/HCPCS: 36415; 71046-TC-FY; 80053; 82550; 82962; 84484; 85025; 85610; 85730; 93005; 93010; 93306-TC; 99285-25; G0378

== ENCOUNTER 2024-09-03 07:51 | Emergency (ER) | payer OTHER, MEDICARE ==
[2024-09-03 07:59] VITALS: BP 200/80; PULSE 76; RESP 20; TEMP 98.2; BMI 21.4
[2024-09-03] MEDS ORDERED: DIPHTH,PERTUSS(ACELL),TET 0.5 ML DISP.SYRIN IM ONE (08:16)
[2024-09-03] MEDS: DIPHTH,PERTUSS(ACELL),TET 0.5 ML DISP.SYRIN IM ONE (08:17)
== END 2024-09-03 09:14 | disposition home or self-care (01) ==
LOC: FER 07:51
PROC: 0HQFXZZ Repair Right Hand Skin, External Approach (ICD-10-PCS; principal; 2024-09-03)
PROC: 3E0234Z Introduction of Serum, Toxoid and Vaccine into Muscle, Percutaneous Approach (ICD-10-PCS; 2024-09-03)
DX: S61.411A Laceration without foreign body of right hand, initial encounter (principal); W26.8XXA Contact with other sharp object(s), not elsewhere classified, initial encounter; Z23 Encounter for immunization
CPT/HCPCS: 12001-25; 90471; 90715; 99284-25